=== PATIENT | female | born 1960 | race African-American/Black ===

== ENCOUNTER 2017-09-21 14:17 | Inpatient (IN) | payer MEDICAID ==
[~2017-09-21] VITALS: Ht 172.7 cm; Wt 74.8 kg
[~2017-09-21 14:17] MED LIST: ALBUTEROL SULF8.5 GM INH; ASPIR 8181 MG ORAL; ATORVASTATIN CA10 MG ORAL; BACTRIM DS TAB1 EAC1 ORAL; BENADRYL25 MG ORAL; CHLOROTHIAZIDE250 MG PO; COUMADIN7.5 MG ORAL; FLONASE1 SPRAYS NASAL; FUROSEMIDE20 M1 ORAL; IBUPROFEN600 MG ORAL; LOVENOX120 MG/0.8 SUBQ; NKM; NORCO 5-325 TA1 EACH ORAL; OMEPRAZOLE20 M2 ORAL; PENICILLIN V P500 MG PO; PREDNISONE20 MG ORAL; PROAIR HFA8.5 GM INH; PROMETHAZINE V237 ML ORAL; TAMIFLU75 MG ORAL; TESSALON PERLE100 M2 ORAL; VIBRAMYCIN100 MG ORAL; ZITHROMAX250 MG ORAL; ZOFRAN ODT4 MG ORAL; ZOLOFT25 MG ORAL
[2017-09-21 14:30] VITALS: BP 137/72
[2017-09-21] MEDS ORDERED: ELIQUIS5 MG PO (14:35)
[2017-09-21] MEDS ORDERED: ASPIRIN81 MG ORAL (14:35)
[2017-09-21] MEDS ORDERED: ADALAT20 MG ORAL (14:35)
[2017-09-21] MEDS ORDERED: HYDROCHLOROTHIA25 MG ORAL (14:35)
[2017-09-21] MEDS ORDERED: NITROGLYCERIN0.4 MG SL (14:35)
[2017-09-21] MEDS ORDERED: Vancomycin 1.5gm/D5W 250ml 250 ML IVPB ONE (14:45)
[2017-09-21] MEDS ORDERED: oxyCODONE HCL/Acetaminophen 5/325mg ORAL ONE (14:45)
--- NOTE | 2017-09-21 14:56 | Emergency Room Report ---
History of Present Illness General Chief Complaint: Pain Source: Patient Present Illness HPI 57 -year-old female presents to the emergency department complaining of swelling , erythema and 10 out of 10 in severity pain to the right lower extremity times over 2 weeks. Patient reports that she has had history of cellulitis and ulcers in bilateral extremities as well as DVT. Reports she just started taking Eliquis again. She recently finished 2 courses of antibiotics Keflex and Cleocin without improvement of her symptoms. Patient reports progression of her symptoms. She denies trauma or fall. Denies open wounds. Denies fevers, chills, chest pain, or SOB. Denies Palpitations, LOC, AMS, dizziness, Changes in Vision, Sensation, paresthesias, or a sudden severe headache. Allergies: Coded Allergies: DOXYCYCLINE (Verified Allergy, Unknown, 07/21/15) Patient History Past Medical History: see triage record, DM Past Surgical History: none Pertinent Family History: none Now: No Reviewed Nursing Documentation: PMH: Agreed, PSxH: Agreed Nursing Documentation-PMH Past Medical History: No History, Except For Hx Cardiac Problems: Yes - high cholesterol Hx Hypertension: Yes Hx Diabetes: No Hx Cancer: No Hx Gastrointestinal Problems: No Hx Seizures: No Review of Systems All Other Systems: negative except mentioned in HPI Physical Exam Vital Signs Date Time Temp Pulse Resp B/P (MAP) Pulse Ox O2 Delivery O2 Flow Rate FiO2 09/21/17 14:20 97.8 105 23 137/72 97 Room Air 97.9 Sp02 EP Interpretation: reviewed, normal General Appearance: no apparent distress, alert, GCS 15, non-toxic Head: normocephalic, atraumatic ENT: hearing grossly normal, normal voice Neck: full range of motion Respiratory: chest non-tender, lungs clear, normal breath sounds, no wheezing, speaking full sentences Cardiovascular #1: regular rate, rhythm, normal capillary refill Musculoskeletal: back normal, gait/station normal, normal range of motion, tender - TTP to the Right LE, swelling and erythema noted. hyperpigmentation of the bilateral LE's. Neurologic: alert, oriented x3, responsive, motor strength/tone normal, sensory intact, speech normal, grossly normal Psychiatric: judgement/insight normal Skin: warm/dry, well hydrated, other - bilateral venous stasis, no ulcers, erythema. Right LE has increased temperature to palpation, swelling, and significant Tenderness to superficial palpation. Lymphatic: no adenopathy Medical Decision Making PA Attestation Dr. dang is my supervising Physician whom patient management has been discussed with. Diagnostic Impression: Primary Impression: Cellulitis Additional Impression: CKD (chronic kidney disease) Qualified Codes: N18.9 - Chronic kidney disease, unspecified ER Course 57 -year-old female presents to the emergency department complaining of swelling , erythema and 10 out of 10 in severity pain to the right lower extremity times over 2 weeks. Patient reports that she has had history of cellulitis and ulcers in bilateral extremities as well as DVT, hx of DM. Reports she just started taking Eliquis again. She recently finished 2 courses of antibiotics Keflex and Cleocin without improvement of her symptoms. Patient reports progression of her symptoms. She denies trauma or fall. Denies open wounds. Denies fevers, chills, chest pain, or SOB. Denies Palpitations, LOC, AMS, dizziness, Changes in Vision, Sensation, paresthesias, or a sudden severe headache. Ddx considered but are not limited to cellulitis, DVT, Venous stasis, fracture , d/L, gout Vital signs: are WNL, pt. is afebrile H&PE are most consistent with Right LE cellulitis will r/o DVT. ORDERS: -CBC: unremarkable -CMP: Elevated Cr (2.3) and BUN (34), elevated glucose. -Blood Cultures: Pending Venous Duplex US: Negative. ED INTERVENTIONS: - Vancomycin IV - 1 Liter NS DISPOSITION: at this time pt. will be admitted to Dr. Montoya for Cellulitis unresponsive to oral medications. Dr. Montoya agreed to admit the pt. and to continue pt. care management. Labs Test 09/21/17 15:07 09/21/17 18:21 09/22/17 07:40 09/22/17 19:50 Lactic Acid Level 1.10 mmol/L (0.66-2.22) Urine Color Pale yellow Urine Appearance Clear Urine pH 5 (4.5-8.0) Urine Specific [place] 1.015 (1.005-1.035) Urine Protein 3+ (NEGATIVE) Urine Glucose (UA) Negative (NEGATIVE) Urine Ketones Negative (NEGATIVE) Urine Occult Blood 2+ (NEGATIVE) Urine Nitrite Negative (NEGATIVE) Urine Bilirubin Negative (NEGATIVE) Urine Urobilinogen Normal MG/DL (0.0-1.0) Urine Leukocyte Esterase Negative (NEGATIVE) Urine RBC 2-4 /HPF (0 - 2) Urine WBC 0-2 /HPF (0 - 2) Urine Squamous Epithelial Cells Few /LPF (NONE/OCC) Urine Bacteria Few /HPF (NONE) C-Reactive Protein, Quantitative 0.8 mg/dL (0.00-0.90) Urine Random Sodium 82 MEQ/L (20-110) Test 09/23/17 05:30 09/23/17 06:15 Urine Eosinophils None seen White Blood Count 5.3 K/UL (4.8-10.8) Red Blood Count 4.65 M/UL (4.20-5.40) Hemoglobin 12.3 G/DL (12.0-16.0) Hematocrit 36.8 % (37.0-47.0) Mean Corpuscular Volume 79 FL (80-99) Mean Corpuscular Hemoglobin 26.4 PG (27.0-31.0) Mean Corpuscular Hemoglobin Concent 33.3 G/DL (32.0-36.0) Red Cell Distribution Width 12.8 % (11.6-14.8) Platelet Count 251 K/UL (150-450) Mean Platelet Volume 7.5 FL (6.5-10.1) Neutrophils (%) (Auto) 53.3 % (45.0-75.0) Lymphocytes (%) (Auto) 34.6 % (20.0-45.0) Monocytes (%) (Auto) 8.2 % (1.0-10.0) Eosinophils (%) (Auto) 2.5 % (0.0-3.0) Basophils (%) (Auto) 1.5 % (0.0-2.0) Sodium Level 139 MMOL/L (136-145) Potassium Level 4.2 MMOL/L (3.5-5.1) Chloride Level 106 MMOL/L (98-107) Carbon Dioxide Level 28 MMOL/L (21-32) Anion Gap 5 mmol/L (5-15) Blood Urea Nitrogen 24 mg/dL (7-18) Creatinine 1.7 MG/DL (0.55-1.30) Estimat Glomerular Filtration Rate 37.6 mL/min (>60) Glucose Level 96 MG/DL (74-106) Hemoglobin A1c 7.0 % (4.3-6.0) Calcium Level 8.6 MG/DL (8.5-10.1) Phosphorus Level 3.7 MG/DL (2.5-4.9) Magnesium Level 1.6 MG/DL (1.8-2.4) Total Bilirubin 0.2 MG/DL (0.2-1.0) Aspartate Amino Transf (AST/SGOT) 34 U/L (15-37) Alanine Aminotransferase (ALT/SGPT) 32 U/L (12-78) Alkaline Phosphatase 60 U/L (46-116) Pro-B-Type Natriuretic Peptide 405 pg/mL (0-125) Total Protein 7.5 G/DL (6.4-8.2) Albumin 2.6 G/DL (3.4-5.0) Globulin 4.9 g/dL Albumin/Globulin Ratio 0.5 (1.0-2.7) Triglycerides Level 166 MG/DL (30-150) Cholesterol Level 143 MG/DL (< 200) LDL Cholesterol 78 mg/dL (<100) HDL Cholesterol 35 MG/DL (40-60) Cholesterol/HDL Ratio 4.1 (3.3-4.4) Thyroid Stimulating Hormone (TSH) 1.295 uiU/mL (0.358-3.740) CT/MRI/US Diagnostic Results CT/MRI/US Diagnostic Results : Imaging Test Ordered: Venous Duplex US of the right LE Impression Negative for DVT- Per official radiology report- Please see report for specific details. Last Vital Signs Date Time Temp Pulse Resp B/P (MAP) Pulse Ox O2 Delivery O2 Flow Rate FiO2 09/21/17 14:20 97.8 105 23 137/72 97 Room Air 97.9 Disposition: ADMITTED INPATIENT Condition: Serious Referrals: [facility],REFERRING (PCP) Padma Palencia Sep 21, 2017 14:56
[2017-09-21 15:28] LABS: BASOPHILS % (AUTO) 1.6 % (0.0-2.0); EOSINOPHILS % (AUTO) 2.1 % (0.0-3.0); LYMPHOCYTES % (AUTO) 23.3 % (20.0-45.0); MEAN CORPUSCULAR VOLUME 79 FL (80-99); MONOCYTES % (AUTO) 6.4 % (1.0-10.0); NEUTROPHILS % (AUTO) 66.6 % (45.0-75.0); PLATELET COUNT 301 K/UL (150-450); RED BLOOD COUNT 5.45 M/UL (4.20-5.40); RED CELL DISTRIBUTION WIDTH 12.6 % (11.6-14.8)
[2017-09-21 15:49] LABS: ANION GAP 7 mmol/L (5-15); BLOOD UREA NITROGEN 36 mg/dL (7-18); CALCIUM 9.3 MG/DL (8.5-10.1); CARBON DIOXIDE 28 MMOL/L (21-32); CHLORIDE 104 MMOL/L (98-107); CREATININE 2.6 MG/DL (0.55-1.30); POTASSIUM 4.1 MMOL/L (3.5-5.1); SODIUM 139 MMOL/L (136-145)
[2017-09-21 15:53] LABS: ALANINE AMINOTRANSFERASE 44 U/L (12-78); ALBUMIN 3.3 G/DL (3.4-5.0); ALBUMIN/GLOBULIN RATIO 0.6 (1.0-2.7); ALKALINE PHOSPHATASE 70 U/L (46-116); ASPARTATE AMINO TRANSFERASE 50 U/L (15-37); BILIRUBIN,TOTAL 0.3 MG/DL (0.2-1.0)
[2017-09-21 17:07] VITALS: BP 139/72
[2017-09-21 19:12] LABS: APPEARANCE,URINE CLEAR; BILIRUBIN, URINE NEGATIVE (NEGATIVE); COLOR,URINE PALE YELLOW; GLUCOSE, URINE (UA) NEGATIVE (NEGATIVE); KETONES,URINE NEGATIVE (NEGATIVE); LEUKOCYTE ESTERASE ,URINE NEGATIVE (NEGATIVE); NITRITE,URINE NEGATIVE (NEGATIVE); PH,URINE 5 (4.5-8.0); PROTEIN,URINE 3+ (NEGATIVE); UROBILINOGEN,URINE NORMAL MG/DL (0.0-1.0)
[2017-09-21 20:24] VITALS: BP 148/88
[2017-09-21 21:30] VITALS: BP 139/80
[2017-09-21] MEDS ORDERED: HYDROcodone/Acetamin 10/325 tab ORAL PRN (23:00)
[2017-09-21] MEDS ORDERED: Vancomycin 500 MG in NS 110 ML IV SCH (23:45)
[2017-09-22] VITALS: BP 159/70
[2017-09-22 04:00] VITALS: BP 120/66
[2017-09-22 08:00] VITALS: BP 107/60
[2017-09-22 08:59] LABS: BASOPHILS % (AUTO) 1.5 % (0.0-2.0); EOSINOPHILS % (AUTO) 3.6 % (0.0-3.0); HEMATOCRIT 35.2 % (37.0-47.0); HEMOGLOBIN 11.6 G/DL (12.0-16.0); LYMPHOCYTES % (AUTO) 29.5 % (20.0-45.0); MEAN CORPUSCULAR VOLUME 79 FL (80-99); MONOCYTES % (AUTO) 9.3 % (1.0-10.0); NEUTROPHILS % (AUTO) 56.1 % (45.0-75.0); PLATELET COUNT 253 K/UL (150-450); RED BLOOD COUNT 4.46 M/UL (4.20-5.40)
[2017-09-22 09:26] LABS: ANION GAP 7 mmol/L (5-15); BLOOD UREA NITROGEN 29 mg/dL (7-18); CALCIUM 8.8 MG/DL (8.5-10.1); CARBON DIOXIDE 27 MMOL/L (21-32); CHLORIDE 106 MMOL/L (98-107); POTASSIUM 3.8 MMOL/L (3.5-5.1); SODIUM 140 MMOL/L (136-145)
[2017-09-22 09:53] LABS: PHOSPHORUS 4.2 MG/DL (2.5-4.9)
[2017-09-22] MEDS: Eliquis 2.5mg tablet ORAL SCH ×2 (10:10→17:31)
[2017-09-22 12:00] VITALS: BP 126/76
[2017-09-22] MEDS ORDERED: Vancomycin 500 MG in NS 110 ML IV SCH (15:00)
--- NOTE | 2017-09-22 15:12 | History and Physical ---
History of Present Illness General Date patient seen: Sep 22, 2017 Time patient seen: 15:12 Reason for Hospitalization: Severe L>R leg cellulitis Present Illness HPI 57y/o female with pmh of HTN, HLD, CKD, DVT (on eliquis) who presents with worsening L>R leg swelling/redness/pain. Pt states she has had worsening symptoms for several weeks. She was recently admitted at another hospital and given IV antibiotics and discharged with oral antibiotics (keflex and Celocin) which she completed without improvement. She notes increasing swelling/pain/ redness. Denies open wounds or drainage. She has a history of DVT and was restarted on Eliquis recently after being off of it. Denies trauma or falls. Denies f/c, n/v, d/c, chest pain, SOB, abd pain, dysuria. In ED, pt was given IVFs and vanco. Allergies: Coded Allergies: DOXYCYCLINE (Verified Allergy, Unknown, 07/21/15) Medication History Scheduled Aspirin* (Aspirin*), 81 MG ORAL DAILY, (Reported) Atorvastatin Calcium* (Lipitor*), 10 MG ORAL BEDTIME, (Reported) Doxycycline Hyclate* (Vibramycin*), 100 MG ORAL EVERY 12 HOURS Furosemide* (Lasix*), 20 MG ORAL DAILY, (Reported) Hydrochlorothiazide* (Hydrochlorothiazide*), 25 MG ORAL DAILY, (Reported) Nifedipine (Nifedipine*), 30 MG ORAL DAILY, (Reported) Omeprazole (Omeprazole), 20 MG ORAL DAILY Warfarin Sod (Coumadin*), 7.5 MG ORAL DAILY Scheduled PRN Hydrocodone Bit/Acetaminophen 5-325* ([place] 5-325*), 1 TAB ORAL Q4H PRN for For Pain Ondansetron Odt* (Zofran Odt*), 4 MG ORAL Q8H PRN for Nausea & Vomiting Miscellaneous Medications Apixaban (Eliquis), 5 MG PO, (Reported) Chlorothiazide (Chlorothiazide), Unknown Dose PO, (Reported) Nitroglycerin (Nitroglycerin), 0.4 MG SL, (Reported) Patient History History Provided By: Patient, Medical Record Healthcare decision maker N Resuscitation status Full Code Advanced Directive on File Past Medical/Surgical History Past Medical/Surgical History: (1) HTN (hypertension) (2) HLD (hyperlipidemia) (3) CKD (chronic kidney disease) Social History Social History: (1) Lives with family Review of Systems Constitutional: Reports: malaise, weakness Eye: Reports: no symptoms ENT: Reports: no symptoms Respiratory: Reports: no symptoms Cardiovascular: Reports: no symptoms Gastrointestinal: Reports: no symptoms Genitourinary: Reports: no symptoms Musculoskeletal: Reports: no symptoms Skin: Reports: no symptoms Psychiatric: Reports: no symptoms Neurological: Reports: no symptoms Endocrine: Reports: no symptoms Hematologic/Lymphatic: Reports: no symptoms All Other Systems: negative except mentioned in HPI Physical Exam Physical Exam Narrative General: alert, cooperative, no distress, appears stated age Head: normocephalic, without obvious abnormality, atraumatic Eyes: conjunctivae/corneas clear. PERRL, EOM's intact Throat: lips, mucosa, and tongue normal. MMM Neck: supple, symmetrical, trachea midline, and no JVD Lungs: clear to auscultation bilaterally Heart: regular rate and rhythm, S1, S2 normal, no murmur, click, rub or gallop Abdomen: soft, non-tender, non-distended, bowel sounds normal Extremities: extremities normal, atraumatic, no cyanosis, +chronic venous stasis changes, +L>R leg edema/TTP/warmth/erythema to below the knees Pulses: 2+ and symmetric Skin: skin color, texture, turgor normal; no rashes or lesions Neurologic: grossly normal, no focal deficits Last 24 Hour Vital Signs Date Time Temp Pulse Resp B/P (MAP) Pulse Ox O2 Delivery O2 Flow Rate FiO2 09/22/17 12:00 96.8 71 19 126/76 97 09/22/17 08:00 96.4 74 18 107/60 99 09/22/17 06:46 98.1 09/22/17 04:00 98.1 84 18 120/66 97 09/22/17 00:00 97.7 85 19 159/70 91 09/21/17 21:30 97.5 86 20 139/80 99 09/21/17 21:25 98.5 65 18 148/88 98 Room Air 98.5 09/21/17 20:24 98.5 65 18 148/88 98 Room Air 98.5 09/21/17 17:07 97.8 88 18 139/72 98 Room Air 97.8 09/21/17 15:57 97.8 Intake and Output 09/21/17 09/22/17 19:00 07:00 Intake Total 100 ml 240 ml Balance 100 ml 240 ml Intake Oral 100 ml 240 ml # Voids 1 # Bowel Movements 1 Laboratory Tests Test 09/21/17 18:21 09/22/17 07:48 Urine Color Pale yellow Urine Appearance Clear Urine pH 5 (4.5-8.0) Urine Specific [place] 1.015 (1.005-1.035) Urine Protein 3+ (NEGATIVE) H Urine Glucose (UA) Negative (NEGATIVE) Urine Ketones Negative (NEGATIVE) Urine Occult Blood 2+ (NEGATIVE) H Urine Nitrite Negative (NEGATIVE) Urine Bilirubin Negative (NEGATIVE) Urine Urobilinogen Normal MG/DL (0.0-1.0) Urine Leukocyte Esterase Negative (NEGATIVE) Urine RBC 2-4 /HPF (0 - 2) H Urine WBC 0-2 /HPF (0 - 2) Urine Squamous Epithelial Cells Few /LPF (NONE/OCC) Urine Bacteria Few /HPF (NONE) White Blood Count 6.0 K/UL (4.8-10.8) Red Blood Count 4.46 M/UL (4.20-5.40) Hemoglobin 11.6 G/DL (12.0-16.0) L Hematocrit 35.2 % (37.0-47.0) L Mean Corpuscular Volume 79 FL (80-99) L Mean Corpuscular Hemoglobin 26.0 PG (27.0-31.0) L Mean Corpuscular Hemoglobin Concent 32.9 G/DL (32.0-36.0) Red Cell Distribution Width 13.0 % (11.6-14.8) Platelet Count 253 K/UL (150-450) Mean Platelet Volume 7.7 FL (6.5-10.1) Neutrophils (%) (Auto) 56.1 % (45.0-75.0) Lymphocytes (%) (Auto) 29.5 % (20.0-45.0) Monocytes (%) (Auto) 9.3 % (1.0-10.0) Eosinophils (%) (Auto) 3.6 % (0.0-3.0) H Basophils (%) (Auto) 1.5 % (0.0-2.0) Sodium Level 140 MMOL/L (136-145) Potassium Level 3.8 MMOL/L (3.5-5.1) Chloride Level 106 MMOL/L (98-107) Carbon Dioxide Level 27 MMOL/L (21-32) Anion Gap 7 mmol/L (5-15) Blood Urea Nitrogen 29 mg/dL (7-18) H Creatinine 2.0 MG/DL (0.55-1.30) H Estimat Glomerular Filtration Rate 31.1 mL/min (>60) Glucose Level 126 MG/DL (74-106) H Calcium Level 8.8 MG/DL (8.5-10.1) Phosphorus Level 4.2 MG/DL (2.5-4.9) Magnesium Level 1.6 MG/DL (1.8-2.4) L Height (Feet): 5 Height (Inches): 8.00 Weight (Pounds): 165 Medications Current Medications Medications (Trade) Dose Ordered Sig/Ene Route PRN Reason Start Time Stop Time Status Last Admin Dose Admin Acetaminophen (Tylenol) 650 mg Q6H PRN ORAL Mild Pain/Temp > 100.5 09/21/17 23:00 10/21/17 22:59 Acetaminophen/ Hydrocodone Bitart ([place] 10/325) 2 tab Q4H PRN ORAL Severe Pain (Pain Scale 7-10) 09/21/17 23:00 09/28/17 22:59 09/22/17 06:46 Acetaminophen/ Hydrocodone Bitart ([place] 5/325) 1 tab Q4H PRN ORAL Moderate Pain (Pain Scale 4-6) 09/21/17 23:00 09/28/17 22:59 Apixaban (Eliquis) 5 mg BID ORAL 09/22/17 09:00 10/22/17 08:59 09/22/17 10:10 Sodium Chloride 1,000 ml @ 75 mls/hr [id number] IV 09/22/17 09:30 10/22/17 09:29 09/22/17 09:30 Vancomycin HCl (Vanco rx to dose) 1 ea DAILY PRN MISC Per rx protocol 09/21/17 23:00 10/21/17 22:59 Vancomycin HCl 500 mg/Sodium Chloride 110 ml @ 110 mls/hr Q24H IV 09/22/17 15:00 09/27/17 14:59 Assessment/Plan Problem List: (1) Cellulitis (2) MARYAM on CKD (3) HTN (hypertension) ICD Codes: I10 - Essential (primary) hypertension SNOMED: 02273916 (4) HLD (hyperlipidemia) ICD Codes: E78.5 - Hyperlipidemia, unspecified SNOMED: 90719660 Status: stable Assessment/Plan Pt with L>R severe leg cellulitis which has failed outpatient PO antibiotics Admit inpt ID and renal consulted Cont IV vancomycin (09/21-) F/u cultures IVFs Trend CBC Trend BMP Cont home meds including Eliquis Elevated BLEs Pain control, bowel regimen Supportive DVT ppx: Eliquis FULL CODE D/w pt/family, RN, SW/CM, renal and ID regarding mgmt and dispo Nadia Garcia M.D. Sep 22, 2017 15:12
[2017-09-22] MEDS: Vancomycin 500 MG in NS 110 ML IV SCH (15:39)
--- NOTE | 2017-09-22 15:39 | Consultation ---
Consult Note Consult Note asked to eval for high Cr 57 -year-old female presents to the emergency department complaining of swelling , erythema and 10 out of 10 in severity pain to the right lower extremity times over 2 weeks. Patient reports that she has had history of cellulitis and ulcers in bilateral extremities as well as DVT. Reports she just started taking Eliquis again. She recently finished 2 courses of antibiotics Keflex and Cleocin without improvement of her symptoms. Patient reports progression of her symptoms. She denies trauma or fall. Denies open wounds. Denies fevers, chills, chest pain, or SOB. Denies Palpitations, LOC, AMS, dizziness, Changes in Vision, Sensation, paresthesias, or a sudden severe headache. Allergies: DOXYCYCLINE (Verified Allergy, Unknown, 07/21/15) Past Medical History: Hx Cardiac Problems: Yes - high cholesterol Hx Hypertension: Yes Patient examined- data reviewed . Assessment/Plan Admitted for Cellulitis Acute renal failure Cr 2.6 on admit now 2 ( Was on HCTZ and Lasix) ? CKD underlying Proteinuria / HypoAlbuminemia HTN Plan: Slow hydrate- Urine studies Kidney CARI 2D echo per consultants CARROLL PADILLA Sep 22, 2017 15:39
[2017-09-22 16:00] VITALS: BP 142/84
[2017-09-22] MEDS: Docusate 100mg cap ORAL SCH (17:31)
[2017-09-22 20:00] VITALS: BP 133/75
[2017-09-22] MEDS: Norco 5mg/325mg tab ORAL PRN (20:44)
[2017-09-23] VITALS: BP 127/72
[2017-09-23 04:00] VITALS: BP 132/73
[2017-09-23] MEDS: Norco 5mg/325mg tab ORAL PRN ×2 (05:25→15:45)
[2017-09-23 07:35] LABS: BASOPHILS % (AUTO) 1.5 % (0.0-2.0); EOSINOPHILS % (AUTO) 2.5 % (0.0-3.0); HEMATOCRIT 36.8 % (37.0-47.0); HEMOGLOBIN 12.3 G/DL (12.0-16.0); LYMPHOCYTES % (AUTO) 34.6 % (20.0-45.0); MEAN CORPUSCULAR VOLUME 79 FL (80-99); MONOCYTES % (AUTO) 8.2 % (1.0-10.0); NEUTROPHILS % (AUTO) 53.3 % (45.0-75.0); PLATELET COUNT 251 K/UL (150-450); RED BLOOD COUNT 4.65 M/UL (4.20-5.40); RED CELL DISTRIBUTION WIDTH 12.8 % (11.6-14.8); WHITE BLOOD COUNT 5.3 K/UL (4.8-10.8)
[2017-09-23 07:45] LABS: ALANINE AMINOTRANSFERASE 32 U/L (12-78); ALBUMIN 2.6 G/DL (3.4-5.0); ALBUMIN/GLOBULIN RATIO 0.5 (1.0-2.7); ALKALINE PHOSPHATASE 60 U/L (46-116); ANION GAP 5 mmol/L (5-15); ASPARTATE AMINO TRANSFERASE 34 U/L (15-37); BILIRUBIN,TOTAL 0.2 MG/DL (0.2-1.0); BLOOD UREA NITROGEN 24 mg/dL (7-18); CALCIUM 8.6 MG/DL (8.5-10.1); CARBON DIOXIDE 28 MMOL/L (21-32); CHLORIDE 106 MMOL/L (98-107); CHOLESTEROL 143 MG/DL (< 200); CREATININE 1.7 MG/DL (0.55-1.30); HDL CHOLESTEROL 35 MG/DL (40-60); PHOSPHORUS 3.7 MG/DL (2.5-4.9); POTASSIUM 4.2 MMOL/L (3.5-5.1); SODIUM 139 MMOL/L (136-145); TRIGLYCERIDES 166 MG/DL (30-150)
[2017-09-23 08:00] VITALS: BP 132/80
[2017-09-23] MEDS: Eliquis 2.5mg tablet ORAL SCH ×2 (08:25→17:36)
[2017-09-23] MEDS: Docusate 100mg cap ORAL SCH ×3 (08:25→17:36)
[2017-09-23] MEDS: Aspirin Baby 81mg ORAL SCH (08:25)
--- NOTE | 2017-09-23 11:39 | Consultation ---
Consult Note Consult Note A: Rt lower ext cellulitis Ro bacteremia HTN HLD CKD hx of DVT Leg doppler 09/21 : neg for Rt lower Ext DVT P: cont pt on IV Vanco d# 3 Monitor CBC Monitor BMP Monitor Bl CX HIV KARTHIK BONNER M.D. Sep 23, 2017 11:39
--- NOTE | 2017-09-23 11:51 | Infectious Diseases Prog Note ---
Assessment/Plan Assessment/Plan A: Rt leg cellulitis Subjective Constitutional: Denies: no symptoms, fever, chills, fatigue, anorexia, drenching sweats, other Allergies: Coded Allergies: DOXYCYCLINE (Verified Allergy, Unknown, 07/21/15) Objective Vital Signs Last 24 Hour Vital Signs Date Time Temp Pulse Resp B/P (MAP) Pulse Ox O2 Delivery O2 Flow Rate FiO2 09/23/17 08:00 97.7 86 19 132/80 100 97.7 09/23/17 06:28 97.7 09/23/17 05:25 97.7 09/23/17 04:00 97.9 79 18 132/73 98 Room Air 97.9 09/23/17 00:00 97.7 76 17 127/72 86 Room Air 97.7 09/22/17 20:44 97.5 09/22/17 20:00 97.5 85 19 133/75 100 Room Air 97.5 09/22/17 16:00 97.5 82 19 142/84 100 97.5 09/22/17 12:00 96.8 71 19 126/76 97 Height (Feet): 5 Height (Inches): 8.00 Weight (Pounds): 165 HEENT: anicteric Respiratory/Chest: no respiratory distress Cardiovascular: no gallop/murmur Abdomen: normal bowel sounds Microbiology Date/Time Source Procedure Growth Status 09/21/17 15:07 Blood Blood Culture - Preliminary NO GROWTH AFTER 24 HOURS Resulted 09/21/17 15:00 Blood Blood Culture - Preliminary NO GROWTH AFTER 24 HOURS Resulted Laboratory Tests Test 09/22/17 19:50 09/23/17 05:30 09/23/17 06:15 Urine Random Sodium 82 MEQ/L (20-110) Urine Eosinophils None seen White Blood Count 5.3 K/UL (4.8-10.8) Red Blood Count 4.65 M/UL (4.20-5.40) Hemoglobin 12.3 G/DL (12.0-16.0) Hematocrit 36.8 % (37.0-47.0) L Mean Corpuscular Volume 79 FL (80-99) L Mean Corpuscular Hemoglobin 26.4 PG (27.0-31.0) L Mean Corpuscular Hemoglobin Concent 33.3 G/DL (32.0-36.0) Red Cell Distribution Width 12.8 % (11.6-14.8) Platelet Count 251 K/UL (150-450) Mean Platelet Volume 7.5 FL (6.5-10.1) Neutrophils (%) (Auto) 53.3 % (45.0-75.0) Lymphocytes (%) (Auto) 34.6 % (20.0-45.0) Monocytes (%) (Auto) 8.2 % (1.0-10.0) Eosinophils (%) (Auto) 2.5 % (0.0-3.0) Basophils (%) (Auto) 1.5 % (0.0-2.0) Sodium Level 139 MMOL/L (136-145) Potassium Level 4.2 MMOL/L (3.5-5.1) Chloride Level 106 MMOL/L (98-107) Carbon Dioxide Level 28 MMOL/L (21-32) Anion Gap 5 mmol/L (5-15) Blood Urea Nitrogen 24 mg/dL (7-18) H Creatinine 1.7 MG/DL (0.55-1.30) H Estimat Glomerular Filtration Rate 37.6 mL/min (>60) Glucose Level 96 MG/DL (74-106) Hemoglobin A1c 7.0 % (4.3-6.0) H Calcium Level 8.6 MG/DL (8.5-10.1) Phosphorus Level 3.7 MG/DL (2.5-4.9) Magnesium Level 1.6 MG/DL (1.8-2.4) L Total Bilirubin 0.2 MG/DL (0.2-1.0) Aspartate Amino Transf (AST/SGOT) 34 U/L (15-37) Alanine Aminotransferase (ALT/SGPT) 32 U/L (12-78) Alkaline Phosphatase 60 U/L (46-116) Pro-B-Type Natriuretic Peptide 405 pg/mL (0-125) H Total Protein 7.5 G/DL (6.4-8.2) Albumin 2.6 G/DL (3.4-5.0) L Globulin 4.9 g/dL Albumin/Globulin Ratio 0.5 (1.0-2.7) L Triglycerides Level 166 MG/DL (30-150) H Cholesterol Level 143 MG/DL (< 200) LDL Cholesterol 78 mg/dL (<100) HDL Cholesterol 35 MG/DL (40-60) L Cholesterol/HDL Ratio 4.1 (3.3-4.4) Thyroid Stimulating Hormone (TSH) 1.295 uiU/mL (0.358-3.740) Current Medications Medications (Trade) Dose Ordered Sig/Ene Route PRN Reason Start Time Stop Time Status Last Admin Dose Admin Acetaminophen (Tylenol) 650 mg Q6H PRN ORAL Mild Pain/Temp > 100.5 09/21/17 23:00 10/21/17 22:59 Acetaminophen/ Hydrocodone Bitart ([place] 5/325) 1 tab Q4H PRN ORAL Moderate Pain (Pain Scale 4-6) 09/21/17 23:00 09/28/17 22:59 09/23/17 05:25 Apixaban (Eliquis) 5 mg BID ORAL 09/22/17 09:00 10/22/17 08:59 09/23/17 08:25 Aspirin (ASA) 81 mg DAILY ORAL 09/23/17 09:00 10/23/17 08:59 09/23/17 08:25 Atorvastatin Calcium (Lipitor) 10 mg BEDTIME ORAL 09/22/17 21:00 10/22/17 20:59 09/22/17 20:41 Docusate Sodium (Colace) 100 mg TID ORAL 09/22/17 18:00 10/22/17 17:59 09/23/17 08:25 Lansoprazole (Prevacid) 30 mg DAILY ORAL 09/22/17 16:30 10/22/17 16:29 09/23/17 08:25 Sodium Chloride 1,000 ml @ 50 mls/hr Q20H IV 09/22/17 17:00 10/22/17 16:59 Vancomycin HCl (Vanco rx to dose) 1 ea DAILY PRN MISC Per rx protocol 09/21/17 23:00 10/21/17 22:59 Vancomycin HCl 500 mg/Sodium Chloride 110 ml @ 110 mls/hr Q24H IV 09/22/17 15:00 09/27/17 14:59 09/22/17 15:39 KARTHIK BONNER M.D. Sep 23, 2017 11:51
[2017-09-23 12:00] VITALS: BP 140/93
--- NOTE | 2017-09-23 12:38 | Diagnostic Imaging Report ---
Indication: Renal failure Technique: Multiplanar grayscale and color Doppler imaging kidneys and bladder Comparison: None Findings: The right kidney measures 8.5 cm in length. The left kidney measures 9.8 cm in length. Both kidneys demonstrate normal parenchymal echogenicity. No hydronephrosis or sonographically appreciable renal stones bilaterally. The bladder is decompressed, limiting its evaluation. Imaged portions of the liver and IVC unremarkable in appearance. IMPRESSION: No evidence of hydronephrosis or sonographically appreciable renal stones. Renal parenchymal echogenicity appears within normal limits. Bladder decompressed, limiting its evaluation.
--- NOTE | 2017-09-23 13:33 | Cardiology Report ---
APPROVED REPORT EXAM: Two-dimensional and M-mode echocardiogram with Doppler and color Doppler. INDICATION Congestive Heart Failure M-Mode DIMENSIONS IVSd1.3 (0.7-1.1cm)Left Atrium (MM)2.8 (1.6-4.0cm) LVDd4.9 (3.5-5.6cm)Aortic Root3.7 (2.0-3.7cm) PWd1.1 (0.7-1.1cm)Aortic Cusp Exc.2.2 (1.5-2.0cm) IVSs1.9 cm LVDs2.8 (2.5-4.0cm) PWs1.5 cm Normal left ventricular chamber size, systolic function and wall motion. Left ventricular ejection fraction estimated to be 70-75 %. Mild left ventricular hypertrophy by 2-D. No evidence of pericardial effusion. All other cardiac chamber sizes are within normal limits. Focal aortic valve sclerosis with adequate cusp excursion, Mildly Thickened mitral valve leaflets with normal excursion. Mildly Mitral annulus and aortic root calcification. Normal pulmonic valve structure. Normal tricuspid valve structure. IVC at normal size with physiologic collapse . A color flow and spectral Doppler study was performed and revealed: No aortic regurgitation. Trace mitral regurgitation. Mitral diastolic velocities suggest reduced left ventricular relaxation c/w mild LV diastolic dysfunction (Grade I ). Mild tricuspid regurgitation. Tricuspid systolic velocities suggests peak right ventricular systolic pressure of 44 mmHg, consistent with mild pulmonary hypertension. No Pulmonic regurgitation present
[2017-09-23] MEDS: Vancomycin 500 MG in NS 110 ML IV SCH (15:45)
--- NOTE | 2017-09-23 15:47 | Nephrology Progress Note ---
Assessment/Plan Problem List: (1) MARYAM on CKD (2) HTN (hypertension) Assessment Admitted for Cellulitis Acute renal failure Cr 2.6 on admit now lowering ( Was on HCTZ and Lasix) ? CKD underlying Proteinuria / HypoAlbuminemia HTN Plan Plan: Slow hydrate- Urine studies 2D echo : Left ventricular ejection fraction estimated to be 70-75 %. Mild left ventricular hypertrophy by 2-D. per consultants Kidney CARI No evidence of hydronephrosis or sonographically appreciable renal stones. Renal parenchymal echogenicity appears within normal limits. Bladder decompressed, limiting its evaluation. Subjective ROS Limited/Unobtainable: No Constitutional: Reports: malaise Objective Objective Last 24 Hour Vital Signs Date Time Temp Pulse Resp B/P (MAP) Pulse Ox O2 Delivery O2 Flow Rate FiO2 09/23/17 12:00 97.0 86 20 140/93 98 97.0 09/23/17 08:00 97.7 86 19 132/80 100 97.7 09/23/17 06:28 97.7 09/23/17 05:25 97.7 09/23/17 04:00 97.9 79 18 132/73 98 Room Air 97.9 09/23/17 00:00 97.7 76 17 127/72 86 Room Air 97.7 09/22/17 20:44 97.5 09/22/17 20:00 97.5 85 19 133/75 100 Room Air 97.5 09/22/17 16:00 97.5 82 19 142/84 100 97.5 Intake and Output 09/22/17 09/23/17 19:00 07:00 Intake Total 890 ml 240 ml Balance 890 ml 240 ml Intake Oral 480 ml 240 ml IV Total 410 ml # Voids 1 Laboratory Tests 09/22/17 19:50: Urine Random Sodium 82 09/23/17 05:30: Urine Eosinophils None seen 09/23/17 06:15: White Blood Count 5.3, Red Blood Count 4.65, Hemoglobin 12.3, Hematocrit 36.8L, Mean Corpuscular Volume 79L, Mean Corpuscular Hemoglobin 26.4L, Mean Corpuscular Hemoglobin Concent 33.3, Red Cell Distribution Width 12.8, Platelet Count 251, Mean Platelet Volume 7.5, Neutrophils (%) (Auto) 53.3, Lymphocytes (% ) (Auto) 34.6, Monocytes (%) (Auto) 8.2, Eosinophils (%) (Auto) 2.5, Basophils ( %) (Auto) 1.5, Sodium Level 139, Potassium Level 4.2, Chloride Level 106, Carbon Dioxide Level 28, Anion Gap 5, Blood Urea Nitrogen 24H, Creatinine 1.7H, Estimat Glomerular Filtration Rate 37.6, Glucose Level 96, Hemoglobin A1c 7.0H, Calcium Level 8.6, Phosphorus Level 3.7, Magnesium Level 1.6L, Total Bilirubin 0.2, Aspartate Amino Transf (AST/SGOT) 34, Alanine Aminotransferase (ALT/SGPT) 32, Alkaline Phosphatase 60, Pro-B-Type Natriuretic Peptide 405H, Total Protein 7.5, Albumin 2.6L, Globulin 4.9, Albumin/Globulin Ratio 0.5L, Triglycerides Level 166H, Cholesterol Level 143, LDL Cholesterol 78, HDL Cholesterol 35L, Cholesterol/HDL Ratio 4.1, Thyroid Stimulating Hormone (TSH) 1.295 09/23/17 14:20: Vancomycin Level Trough [Pending] Height (Feet): 5 Height (Inches): 8.00 Weight (Pounds): 165 General Appearance: no apparent distress Cardiovascular: normal rate Respiratory/Chest: decreased breath sounds Abdomen: soft CARROLL PADILLA Sep 23, 2017 15:47
--- NOTE | 2017-09-23 15:56 | Pulmonology Progress Note ---
Assessment/Plan Problems: (1) Cellulitis (2) Depression (3) HTN (hypertension) (4) MARYAM on CKD Assessment/Plan iv abx f/u renal parameters check electrolytes f/u ID recommendations. Subjective Interval Events: c/o pain in RL extremity Allergies: Coded Allergies: DOXYCYCLINE (Verified Allergy, Unknown, 07/21/15) Objective Last 24 Hour Vital Signs Date Time Temp Pulse Resp B/P (MAP) Pulse Ox O2 Delivery O2 Flow Rate FiO2 09/23/17 12:00 97.0 86 20 140/93 98 97.0 09/23/17 08:00 97.7 86 19 132/80 100 97.7 09/23/17 06:28 97.7 09/23/17 05:25 97.7 09/23/17 04:00 97.9 79 18 132/73 98 Room Air 97.9 09/23/17 00:00 97.7 76 17 127/72 86 Room Air 97.7 09/22/17 20:44 97.5 09/22/17 20:00 97.5 85 19 133/75 100 Room Air 97.5 09/22/17 16:00 97.5 82 19 142/84 100 97.5 Intake and Output 09/22/17 09/23/17 19:00 07:00 Intake Total 890 ml 240 ml Balance 890 ml 240 ml Intake Oral 480 ml 240 ml IV Total 410 ml # Voids 1 Objective General Appearance: no apparent distress Head: normocephalic, atraumatic Eyes: bilateral eye PERRL, bilateral eye EOMI ENT: normal pharynx, no angioedema Neck: supple, thyroid normal Respiratory: lungs clear, normal breath sounds Cardiovascular #1: regular rate, rhythm Gastrointestinal: non tender, soft Ext. slightly warmth and redness at right calf Microbiology Date/Time Source Procedure Growth Status 09/21/17 15:07 Blood Blood Culture - Preliminary NO GROWTH AFTER 24 HOURS Resulted 09/21/17 15:00 Blood Blood Culture - Preliminary NO GROWTH AFTER 24 HOURS Resulted Laboratory Tests 09/22/17 19:50: Urine Random Sodium 82 09/23/17 05:30: Urine Eosinophils None seen 09/23/17 06:15: White Blood Count 5.3, Red Blood Count 4.65, Hemoglobin 12.3, Hematocrit 36.8L, Mean Corpuscular Volume 79L, Mean Corpuscular Hemoglobin 26.4L, Mean Corpuscular Hemoglobin Concent 33.3, Red Cell Distribution Width 12.8, Platelet Count 251, Mean Platelet Volume 7.5, Neutrophils (%) (Auto) 53.3, Lymphocytes (% ) (Auto) 34.6, Monocytes (%) (Auto) 8.2, Eosinophils (%) (Auto) 2.5, Basophils ( %) (Auto) 1.5, Sodium Level 139, Potassium Level 4.2, Chloride Level 106, Carbon Dioxide Level 28, Anion Gap 5, Blood Urea Nitrogen 24H, Creatinine 1.7H, Estimat Glomerular Filtration Rate 37.6, Glucose Level 96, Hemoglobin A1c 7.0H, Calcium Level 8.6, Phosphorus Level 3.7, Magnesium Level 1.6L, Total Bilirubin 0.2, Aspartate Amino Transf (AST/SGOT) 34, Alanine Aminotransferase (ALT/SGPT) 32, Alkaline Phosphatase 60, Pro-B-Type Natriuretic Peptide 405H, Total Protein 7.5, Albumin 2.6L, Globulin 4.9, Albumin/Globulin Ratio 0.5L, Triglycerides Level 166H, Cholesterol Level 143, LDL Cholesterol 78, HDL Cholesterol 35L, Cholesterol/HDL Ratio 4.1, Thyroid Stimulating Hormone (TSH) 1.295 09/23/17 14:20: Vancomycin Level Trough 6.7 Current Medications Medications (Trade) Dose Ordered Sig/Ene Route PRN Reason Start Time Stop Time Status Last Admin Dose Admin Acetaminophen (Tylenol) 650 mg Q6H PRN ORAL Mild Pain/Temp > 100.5 09/21/17 23:00 10/21/17 22:59 Acetaminophen/ Hydrocodone Bitart ([place] 5/325) 1 tab Q4H PRN ORAL Moderate Pain (Pain Scale 4-6) 09/21/17 23:00 09/28/17 22:59 09/23/17 15:45 Apixaban (Eliquis) 5 mg BID ORAL 09/22/17 09:00 10/22/17 08:59 09/23/17 08:25 Aspirin (ASA) 81 mg DAILY ORAL 09/23/17 09:00 10/23/17 08:59 09/23/17 08:25 Atorvastatin Calcium (Lipitor) 10 mg BEDTIME ORAL 09/22/17 21:00 10/22/17 20:59 09/22/17 20:41 Docusate Sodium (Colace) 100 mg TID ORAL 09/22/17 18:00 10/22/17 17:59 09/23/17 08:25 Lansoprazole (Prevacid) 30 mg DAILY ORAL 09/22/17 16:30 10/22/17 16:29 09/23/17 08:25 Sodium Chloride 1,000 ml @ 50 mls/hr Q20H IV 09/22/17 17:00 10/22/17 16:59 Vancomycin HCl (Vanco rx to dose) 1 ea DAILY PRN MISC Per rx protocol 09/21/17 23:00 10/21/17 22:59 Vancomycin HCl 500 mg/Sodium Chloride 110 ml @ 110 mls/hr Q24H IV 09/22/17 15:00 09/27/17 14:59 09/23/17 15:45 NEY LOVE Sep 23, 2017 15:56
[2017-09-23 16:00] VITALS: BP 131/65
[2017-09-23 20:00] VITALS: BP 124/68
--- NOTE | 2017-09-23 21:43 | Diagnostic Imaging Report ---
APPROVED REPORT CPT Code: 16952 Present Symptoms Comments: R/O DVT Left leg Past History DVT :Left Medications Heparin LEFT LEG: Venous imaging reveals recanalized chronic thrombus in the common and superficial femoral veins. Large collateral vein noted anterior to the superficial femoral artery. The remainder of the deep venous system is within normal limits. There is no evidence of thrombus in the popliteal or calf veins. The greater saphenous vein is also within normal limits. Doppler indicates normal spontaneous flow within these segments. There is no evidence of acute deep vein thrombosis.
--- NOTE | 2017-09-23 21:51 | Diagnostic Imaging Report ---
APPROVED REPORT CPT Code: 21367 Present Symptoms Comments: Pain Swelling and Erythema RIGHT LEG: Venous imaging reveals a patent deep venous system. There is no evidence of thrombus within the femoral, popliteal or tibial segments. The greater saphenous vein is also within normal limits. Doppler indicates normal spontaneous flow within these segments.
--- NOTE | 2017-09-23 22:30 | Consultation ---
DATE OF CONSULTATION: 09/23/2017 INFECTIOUS DISEASES CONSULTATION CONSULTING PHYSICIAN: Audie Tovar M.D. REFERRING PHYSICIAN: Nadia Garcia M.D. REASON FOR CONSULTATION: Evaluation of the patient for lower extremity cellulitis and antibiotic management. HISTORY OF PRESENT ILLNESS: The patient is a 57-year-old female with multiple medical problems who was admitted to this medical center for left lower extremity pain, tenderness, and discoloration. Apparently, the patient has been seen in other facilities and was given oral antibiotics (Keflex and later clindamycin) without significant improvement. Infectious Diseases consultation has been requested for further evaluation of the patient and antibiotic management. PAST MEDICAL HISTORY: 1. Hypertension. 2. Hyperlipidemia. 3. CKD. 4. History of DVT. MEDICATIONS: Vancomycin. ALLERGIES: Doxycycline. FAMILY HISTORY: Not contributing. REVIEW OF SYSTEMS: HEENT: No recent change in vision or hearing. PULMONARY: No cough or shortness of breath. CARDIOVASCULAR: No chest pain or palpitation. GASTROINTESTINAL/ABDOMEN: No nausea or vomiting. GENITOURINARY: No dysuria. MUSCULOSKELETAL: Right lower extremity edema and tenderness. PHYSICAL EXAMINATION: VITAL SIGNS: Temperature 97.7 degrees, blood pressure 132/80, pulse rate 80, and respiratory rate 18. HEENT: No pale conjunctivae. No icterus. NECK: No lymphadenopathy. CHEST: Clear. HEART: S1 and S2. ABDOMEN: Soft. EXTREMITIES: Right lower extremity edema and tenderness. NEUROLOGIC: Awake and alert. LABORATORY AND DIAGNOSTIC DATA: White blood cells 6, hemoglobin 11, and platelets 253. UA is unremarkable. BUN 29 and creatinine 2. Leg Doppler, no evidence of DVT on the right. ASSESSMENT: 1. This is a 57-year-old female with right lower extremity cellulitis. 2. Acute renal insufficiency/dehydration, improving. 3. Rule out bacteremia. PLAN: 1. We will continue the patient on IV vancomycin. 2. Monitor CBC. 3. Monitor BMP. 4. Monitor blood culture. 5. We will check HIV test. 6. Based on the patient's clinical course and labs, we will do further recommendations. Thank you, Dr. Zuniga and Dr. Ramos, for allowing me to participate in the care of this patient. I will follow the patient with you during this hospitalization. Audie Tovar M.D. DR: NELSON JOB#: [id number] CC:
[2017-09-24 00:02] VITALS: BP 120/62
[2017-09-24] MEDS: Norco 5mg/325mg tab ORAL PRN ×4 (03:17→20:18)
[2017-09-24 04:40] VITALS: BP 124/71
[2017-09-24 08:00] VITALS: BP 122/71
[2017-09-24] MEDS: Docusate 100mg cap ORAL SCH ×3 (08:08→17:11)
[2017-09-24] MEDS: Aspirin Baby 81mg ORAL SCH (08:08)
[2017-09-24] MEDS: Eliquis 2.5mg tablet ORAL SCH ×2 (08:08→17:12)
[2017-09-24 11:54] VITALS: BP 128/76
--- NOTE | 2017-09-24 12:05 | Infectious Diseases Prog Note ---
Assessment/Plan Assessment/Plan ASSESSMENT: This is a 57-year-old female with Right lower extremity edema and tenderness Bl Leg: Doppler, no evidence of DVT on the right HIV test : Neg Acute renal insufficiency/dehydration, improving Hypertension Hyperlipidemia CKD History of DVT PLAN: continue the patient on IV vancomycin d# 3 Monitor CBC. Monitor BMP. Monitor blood culture. Subjective Allergies: Coded Allergies: DOXYCYCLINE (Verified Allergy, Unknown, 07/21/15) Subjective afebrile Objective Vital Signs Last 24 Hour Vital Signs Date Time Temp Pulse Resp B/P (MAP) Pulse Ox O2 Delivery O2 Flow Rate FiO2 09/24/17 11:54 98.1 110 19 128/76 99 98.1 09/24/17 09:09 97.3 09/24/17 08:10 97.3 09/24/17 08:00 97.3 79 19 122/71 99 97.3 09/24/17 04:40 97.3 70 18 124/71 98 97.3 09/24/17 04:40 Room Air 09/24/17 00:05 Room Air 09/24/17 00:02 97.8 79 18 120/62 97 97.8 09/23/17 20:00 97.5 85 17 124/68 97 97.5 09/23/17 20:00 Room Air 09/23/17 16:00 98.4 75 21 131/65 98 98.4 Height (Feet): 5 Height (Inches): 8.00 Weight (Pounds): 165 HEENT: anicteric Respiratory/Chest: normal breath sounds Cardiovascular: normal peripheral pulses Abdomen: soft, non tender Microbiology Date/Time Source Procedure Growth Status 09/21/17 15:07 Blood Blood Culture - Preliminary NO GROWTH AFTER 48 HOURS Resulted 09/21/17 15:00 Blood Blood Culture - Preliminary NO GROWTH AFTER 48 HOURS Resulted Laboratory Tests Test 09/23/17 14:20 09/24/17 04:15 09/24/17 05:30 Vancomycin Level Trough 6.7 ug/mL (5.0-12.0) Urine Eosinophils None seen HIV (1&2) Antibody Rapid Negative (NEGATIVE) Current Medications Medications (Trade) Dose Ordered Sig/Ene Route PRN Reason Start Time Stop Time Status Last Admin Dose Admin Acetaminophen (Tylenol) 650 mg Q6H PRN ORAL Mild Pain/Temp > 100.5 09/21/17 23:00 10/21/17 22:59 Acetaminophen/ Hydrocodone Bitart ([place] 5/325) 1 tab Q4H PRN ORAL Moderate Pain (Pain Scale 4-6) 09/21/17 23:00 09/28/17 22:59 09/24/17 08:10 Apixaban (Eliquis) 5 mg BID ORAL 09/22/17 09:00 10/22/17 08:59 09/24/17 08:08 Aspirin (ASA) 81 mg DAILY ORAL 09/23/17 09:00 10/23/17 08:59 09/24/17 08:08 Atorvastatin Calcium (Lipitor) 10 mg BEDTIME ORAL 09/22/17 21:00 10/22/17 20:59 09/23/17 20:21 Docusate Sodium (Colace) 100 mg TID ORAL 09/22/17 18:00 10/22/17 17:59 09/24/17 08:08 Lansoprazole (Prevacid) 30 mg DAILY ORAL 09/22/17 16:30 10/22/17 16:29 09/24/17 08:08 Sodium Chloride 1,000 ml @ 50 mls/hr Q20H IV 09/22/17 17:00 10/22/17 16:59 09/24/17 11:04 Vancomycin HCl (Vanco rx to dose) 1 ea DAILY PRN MISC Per rx protocol 09/21/17 23:00 10/21/17 22:59 Vancomycin HCl 500 mg/Sodium Chloride 110 ml @ 110 mls/hr Q24H IV 09/22/17 15:00 09/27/17 14:59 09/23/17 15:45 KARTHIK BNONER M.D. Sep 24, 2017 12:05
--- NOTE | 2017-09-24 12:21 | Nephrology Progress Note ---
Assessment/Plan Problem List: (1) MARYAM on CKD (2) HTN (hypertension) Assessment Admitted for Cellulitis Acute renal failure Cr 2.6 on admit now lowering ( Was on HCTZ and Lasix) ? CKD underlying Proteinuria / HypoAlbuminemia HTN Plan Plan: no labs today Slow hydrate- Urine studies 2D echo : Left ventricular ejection fraction estimated to be 70-75 %. Mild left ventricular hypertrophy by 2-D. per consultants Kidney CARI No evidence of hydronephrosis or sonographically appreciable renal stones. Renal parenchymal echogenicity appears within normal limits. Bladder decompressed, limiting its evaluation. Subjective ROS Limited/Unobtainable: No Constitutional: Reports: malaise Objective Objective Last 24 Hour Vital Signs Date Time Temp Pulse Resp B/P (MAP) Pulse Ox O2 Delivery O2 Flow Rate FiO2 09/24/17 12:19 80 09/24/17 11:54 98.1 110 19 128/76 99 98.1 09/24/17 09:09 97.3 09/24/17 08:10 97.3 09/24/17 08:00 97.3 79 19 122/71 99 97.3 09/24/17 04:40 97.3 70 18 124/71 98 97.3 09/24/17 04:40 Room Air 09/24/17 00:05 Room Air 09/24/17 00:02 97.8 79 18 120/62 97 97.8 09/23/17 20:00 97.5 85 17 124/68 97 97.5 09/23/17 20:00 Room Air 09/23/17 16:00 98.4 75 21 131/65 98 98.4 Intake and Output 09/23/17 09/24/17 19:00 07:00 Intake Total 860 ml 860 ml Balance 860 ml 860 ml Intake Oral 860 ml 360 ml IV Total 500 ml # Voids 4 1 # Bowel Movements 1 Laboratory Tests 09/23/17 14:20: Vancomycin Level Trough 6.7 09/24/17 04:15: Urine Eosinophils None seen 09/24/17 05:30: HIV (1&2) Antibody Rapid Negative Height (Feet): 5 Height (Inches): 8.00 Weight (Pounds): 165 General Appearance: no apparent distress Objective no change CARROLL PADILLA Sep 24, 2017 12:21
[2017-09-24] MEDS: Vancomycin 500 MG in NS 110 ML IV SCH (15:06)
[2017-09-24 15:59] VITALS: BP 135/72
--- NOTE | 2017-09-24 17:11 | Pulmonology Progress Note ---
Assessment/Plan Problems: (1) Cellulitis (2) Depression (3) HTN (hypertension) (4) MARYAM on CKD Assessment/Plan improivng iv abx on Vancomycin f/u renal parameters check electrolytes f/u ID recommendations. Subjective ROS Limited/Unobtainable: No Constitutional: Reports: no symptoms HEENT: Repors: no symptoms Respiratory: Reports: no symptoms Allergies: Coded Allergies: DOXYCYCLINE (Verified Allergy, Unknown, 07/21/15) Objective Last 24 Hour Vital Signs Date Time Temp Pulse Resp B/P (MAP) Pulse Ox O2 Delivery O2 Flow Rate FiO2 09/24/17 15:59 97.2 71 19 135/72 99 97.2 09/24/17 13:44 98.1 09/24/17 12:45 98.1 09/24/17 12:19 80 09/24/17 11:54 98.1 110 19 128/76 99 98.1 09/24/17 08:10 97.3 09/24/17 08:00 97.3 79 19 122/71 99 97.3 09/24/17 04:40 97.3 70 18 124/71 98 97.3 09/24/17 04:40 Room Air 09/24/17 00:05 Room Air 09/24/17 00:02 97.8 79 18 120/62 97 97.8 09/23/17 20:00 97.5 85 17 124/68 97 97.5 09/23/17 20:00 Room Air Intake and Output 09/23/17 09/24/17 19:00 07:00 Intake Total 860 ml 910 ml Balance 860 ml 910 ml Intake Oral 860 ml 360 ml IV Total 550 ml # Voids 4 1 # Bowel Movements 1 Objective General Appearance: no apparent distress Head: normocephalic, atraumatic Eyes: bilateral eye PERRL, bilateral eye EOMI ENT: normal pharynx, no angioedema Neck: supple, thyroid normal Respiratory: lungs clear, normal breath sounds Cardiovascular #1: regular rate, rhythm Gastrointestinal: non tender, soft Ext. slightly warmth and redness at right calf Laboratory Tests 09/24/17 04:15: Urine Eosinophils None seen 09/24/17 05:30: HIV (1&2) Antibody Rapid Negative Current Medications Medications (Trade) Dose Ordered Sig/Ene Route PRN Reason Start Time Stop Time Status Last Admin Dose Admin Acetaminophen (Tylenol) 650 mg Q6H PRN ORAL Mild Pain/Temp > 100.5 09/21/17 23:00 10/21/17 22:59 Acetaminophen/ Hydrocodone Bitart ([place] 5/325) 1 tab Q4H PRN ORAL Moderate Pain (Pain Scale 4-6) 09/21/17 23:00 09/28/17 22:59 09/24/17 12:45 Apixaban (Eliquis) 5 mg BID ORAL 09/22/17 09:00 10/22/17 08:59 09/24/17 08:08 Aspirin (ASA) 81 mg DAILY ORAL 09/23/17 09:00 10/23/17 08:59 09/24/17 08:08 Atorvastatin Calcium (Lipitor) 10 mg BEDTIME ORAL 09/22/17 21:00 10/22/17 20:59 09/23/17 20:21 Docusate Sodium (Colace) 100 mg TID ORAL 09/22/17 18:00 10/22/17 17:59 09/24/17 12:37 Lansoprazole (Prevacid) 30 mg DAILY ORAL 09/22/17 16:30 10/22/17 16:29 09/24/17 08:08 Sodium Chloride 1,000 ml @ 50 mls/hr Q20H IV 09/22/17 17:00 10/22/17 16:59 09/24/17 11:04 Vancomycin HCl (Vanco rx to dose) 1 ea DAILY PRN MISC Per rx protocol 09/21/17 23:00 10/21/17 22:59 Vancomycin HCl 500 mg/Sodium Chloride 110 ml @ 110 mls/hr Q24H IV 09/22/17 15:00 09/27/17 14:59 09/24/17 15:06 NEY LOVE Sep 24, 2017 17:11
[2017-09-24 19:43] VITALS: BP 132/68
[2017-09-25] VITALS (7 sets, daily range): BP systolic 127–164; BP diastolic 64–95
[2017-09-25] MEDS: Norco 5mg/325mg tab ORAL PRN ×3 (05:40→20:24)
[2017-09-25 06:30] LABS: BASOPHILS % (AUTO) 1.2 % (0.0-2.0); EOSINOPHILS % (AUTO) 2.8 % (0.0-3.0); HEMATOCRIT 35.7 % (37.0-47.0); HEMOGLOBIN 11.9 G/DL (12.0-16.0); LYMPHOCYTES % (AUTO) 27.9 % (20.0-45.0); MEAN CORPUSCULAR VOLUME 80 FL (80-99); MONOCYTES % (AUTO) 6.6 % (1.0-10.0); NEUTROPHILS % (AUTO) 61.5 % (45.0-75.0); PLATELET COUNT 304 K/UL (150-450); RED BLOOD COUNT 4.49 M/UL (4.20-5.40); RED CELL DISTRIBUTION WIDTH 13.2 % (11.6-14.8); WHITE BLOOD COUNT 6.5 K/UL (4.8-10.8)
[2017-09-25 06:59] LABS: ALANINE AMINOTRANSFERASE 31 U/L (12-78); ALBUMIN 2.5 G/DL (3.4-5.0); ALBUMIN/GLOBULIN RATIO 0.5 (1.0-2.7); ALKALINE PHOSPHATASE 59 U/L (46-116); ANION GAP 6 mmol/L (5-15); ASPARTATE AMINO TRANSFERASE 26 U/L (15-37); BILIRUBIN,TOTAL 0.1 MG/DL (0.2-1.0); BLOOD UREA NITROGEN 22 mg/dL (7-18); CALCIUM 8.6 MG/DL (8.5-10.1); CARBON DIOXIDE 26 MMOL/L (21-32); CHLORIDE 109 MMOL/L (98-107); CREATININE 1.7 MG/DL (0.55-1.30); PHOSPHORUS 3.3 MG/DL (2.5-4.9); POTASSIUM 4.6 MMOL/L (3.5-5.1); SODIUM 141 MMOL/L (136-145)
[2017-09-25] MEDS: Aspirin Baby 81mg ORAL SCH (08:22)
[2017-09-25] MEDS: Docusate 100mg cap ORAL SCH ×3 (08:23→17:08)
[2017-09-25] MEDS: Eliquis 2.5mg tablet ORAL SCH ×2 (08:23→17:09)
--- NOTE | 2017-09-25 11:05 | Infectious Diseases Prog Note ---
Assessment/Plan Assessment/Plan ASSESSMENT: This is a 57-year-old female with Right lower extremity cellulitis , improving edema and tenderness improving Bl Leg: Doppler, no evidence of DVT on the right HIV test : Neg Acute renal insufficiency/dehydration, improving Hypertension Hyperlipidemia CKD History of DVT PLAN: continue the patient on IV vancomycin d# 4/ 10 Monitor CBC. Monitor BMP. Monitor blood culture Subjective Constitutional: Denies: no symptoms, fever, chills, fatigue, anorexia, drenching sweats, other Allergies: Coded Allergies: DOXYCYCLINE (Verified Allergy, Unknown, 07/21/15) Subjective afebrile Objective Vital Signs Last 24 Hour Vital Signs Date Time Temp Pulse Resp B/P (MAP) Pulse Ox O2 Delivery O2 Flow Rate FiO2 09/25/17 08:22 Room Air 09/25/17 08:00 98.0 74 20 132/75 100 98.0 09/25/17 03:36 98.1 66 20 132/64 99 Room Air 98.1 88 09/25/17 00:51 97.0 84 20 127/75 95 Room Air 97.0 09/24/17 19:43 97.0 85 20 132/68 99 Room Air 97.0 85 09/24/17 15:59 97.2 71 19 135/72 99 97.2 09/24/17 13:44 98.1 09/24/17 12:45 98.1 09/24/17 12:19 80 09/24/17 11:54 98.1 110 19 128/76 99 98.1 Height (Feet): 5 Height (Inches): 8.00 Weight (Pounds): 165 HEENT: anicteric Respiratory/Chest: no respiratory distress Cardiovascular: regularly irregular Abdomen: non distended Laboratory Tests Test 09/25/17 04:14 09/25/17 05:10 Urine Eosinophils None seen White Blood Count 6.5 K/UL (4.8-10.8) Red Blood Count 4.49 M/UL (4.20-5.40) Hemoglobin 11.9 G/DL (12.0-16.0) L Hematocrit 35.7 % (37.0-47.0) L Mean Corpuscular Volume 80 FL (80-99) Mean Corpuscular Hemoglobin 26.6 PG (27.0-31.0) L Mean Corpuscular Hemoglobin Concent 33.4 G/DL (32.0-36.0) Red Cell Distribution Width 13.2 % (11.6-14.8) Platelet Count 304 K/UL (150-450) Mean Platelet Volume 7.5 FL (6.5-10.1) Neutrophils (%) (Auto) 61.5 % (45.0-75.0) Lymphocytes (%) (Auto) 27.9 % (20.0-45.0) Monocytes (%) (Auto) 6.6 % (1.0-10.0) Eosinophils (%) (Auto) 2.8 % (0.0-3.0) Basophils (%) (Auto) 1.2 % (0.0-2.0) Sodium Level 141 MMOL/L (136-145) Potassium Level 4.6 MMOL/L (3.5-5.1) Chloride Level 109 MMOL/L (98-107) H Carbon Dioxide Level 26 MMOL/L (21-32) Anion Gap 6 mmol/L (5-15) Blood Urea Nitrogen 22 mg/dL (7-18) H Creatinine 1.7 MG/DL (0.55-1.30) H Estimat Glomerular Filtration Rate 37.6 mL/min (>60) Glucose Level 93 MG/DL (74-106) Uric Acid 5.8 MG/DL (2.6-7.2) Calcium Level 8.6 MG/DL (8.5-10.1) Phosphorus Level 3.3 MG/DL (2.5-4.9) Magnesium Level 1.9 MG/DL (1.8-2.4) Total Bilirubin 0.1 MG/DL (0.2-1.0) L Aspartate Amino Transf (AST/SGOT) 26 U/L (15-37) Alanine Aminotransferase (ALT/SGPT) 31 U/L (12-78) Alkaline Phosphatase 59 U/L (46-116) Total Protein 7.4 G/DL (6.4-8.2) Albumin 2.5 G/DL (3.4-5.0) L Globulin 4.9 g/dL Albumin/Globulin Ratio 0.5 (1.0-2.7) L Current Medications Medications (Trade) Dose Ordered Sig/Ene Route PRN Reason Start Time Stop Time Status Last Admin Dose Admin Acetaminophen (Tylenol) 650 mg Q6H PRN ORAL Mild Pain/Temp > 100.5 09/21/17 23:00 10/21/17 22:59 Acetaminophen/ Hydrocodone Bitart ([place] 5/325) 1 tab Q4H PRN ORAL Moderate Pain (Pain Scale 4-6) 09/21/17 23:00 09/28/17 22:59 09/25/17 05:40 Apixaban (Eliquis) 5 mg BID ORAL 09/22/17 09:00 10/22/17 08:59 09/25/17 08:23 Aspirin (ASA) 81 mg DAILY ORAL 09/23/17 09:00 10/23/17 08:59 09/25/17 08:22 Atorvastatin Calcium (Lipitor) 10 mg BEDTIME ORAL 09/22/17 21:00 10/22/17 20:59 09/24/17 20:16 Docusate Sodium (Colace) 100 mg TID ORAL 09/22/17 18:00 10/22/17 17:59 09/25/17 08:23 Lansoprazole (Prevacid) 30 mg DAILY ORAL 09/22/17 16:30 10/22/17 16:29 09/25/17 08:23 Sodium Chloride 1,000 ml @ 50 mls/hr Q20H IV 09/22/17 17:00 10/22/17 16:59 09/24/17 11:04 Vancomycin HCl (Vanco rx to dose) 1 ea DAILY PRN MISC Per rx protocol 09/21/17 23:00 10/21/17 22:59 Vancomycin HCl 500 mg/Sodium Chloride 110 ml @ 110 mls/hr Q24H IV 09/22/17 15:00 09/27/17 14:59 09/24/17 15:06 KARTHIK BONNER M.D. Sep 25, 2017 11:05
--- NOTE | 2017-09-25 14:21 | Nephrology Progress Note ---
Assessment/Plan Problem List: (1) MARYAM on CKD (2) HTN (hypertension) Assessment Admitted for Cellulitis Acute renal failure Cr 2.6 on admit now lowering ( Was on HCTZ and Lasix) Cr 1.7 stable ? CKD underlying Proteinuria / HypoAlbuminemia HTN Plan Plan: Slow hydrate- Urine studies 2D echo : Left ventricular ejection fraction estimated to be 70-75 %. Mild left ventricular hypertrophy by 2-D. per consultants Kidney CARI No evidence of hydronephrosis or sonographically appreciable renal stones. Renal parenchymal echogenicity appears within normal limits. Bladder decompressed, limiting its evaluation. Subjective ROS Limited/Unobtainable: No Objective Objective Last 24 Hour Vital Signs Date Time Temp Pulse Resp B/P (MAP) Pulse Ox O2 Delivery O2 Flow Rate FiO2 09/25/17 13:20 84 151/85 09/25/17 13:18 97.3 09/25/17 13:15 Room Air 09/25/17 12:00 97.3 74 20 164/95 100 97.3 09/25/17 08:22 Room Air 09/25/17 08:00 98.0 74 20 132/75 100 98.0 09/25/17 03:36 98.1 66 20 132/64 99 Room Air 98.1 88 09/25/17 00:51 97.0 84 20 127/75 95 Room Air 97.0 09/24/17 19:43 97.0 85 20 132/68 99 Room Air 97.0 85 09/24/17 15:59 97.2 71 19 135/72 99 97.2 Intake and Output 09/24/17 09/25/17 19:00 07:00 Intake Total 1090 ml 800 ml Balance 1090 ml 800 ml Intake Oral 480 ml 200 ml IV Total 610 ml 600 ml # Voids 2 # Bowel Movements 1 Laboratory Tests 09/25/17 04:14: Urine Eosinophils None seen 09/25/17 05:10: White Blood Count 6.5, Red Blood Count 4.49, Hemoglobin 11.9L, Hematocrit 35.7L , Mean Corpuscular Volume 80, Mean Corpuscular Hemoglobin 26.6L, Mean Corpuscular Hemoglobin Concent 33.4, Red Cell Distribution Width 13.2, Platelet Count 304, Mean Platelet Volume 7.5, Neutrophils (%) (Auto) 61.5, Lymphocytes (% ) (Auto) 27.9, Monocytes (%) (Auto) 6.6, Eosinophils (%) (Auto) 2.8, Basophils ( %) (Auto) 1.2, Sodium Level 141, Potassium Level 4.6, Chloride Level 109H, Carbon Dioxide Level 26, Anion Gap 6, Blood Urea Nitrogen 22H, Creatinine 1.7H, Estimat Glomerular Filtration Rate 37.6, Glucose Level 93, Uric Acid 5.8, Calcium Level 8.6, Phosphorus Level 3.3, Magnesium Level 1.9, Total Bilirubin 0.1L, Aspartate Amino Transf (AST/SGOT) 26, Alanine Aminotransferase (ALT/SGPT) 31, Alkaline Phosphatase 59, Total Protein 7.4, Albumin 2.5L, Globulin 4.9, Albumin/Globulin Ratio 0.5L Height (Feet): 5 Height (Inches): 8.00 Weight (Pounds): 165 General Appearance: no apparent distress Objective no change CARROLL PADILLA Sep 25, 2017 14:20
[2017-09-25] MEDS: Vancomycin 500 MG in NS 110 ML IV SCH (15:03)
--- NOTE | 2017-09-25 22:35 | Pulmonology Progress Note ---
Assessment/Plan Problems: (1) Cellulitis (2) Depression (3) HTN (hypertension) (4) MARYAM on CKD Assessment/Plan improivng iv abx on Vancomycin f/u renal parameters check electrolytes f/u ID recommendations. Subjective ROS Limited/Unobtainable: No Constitutional: Reports: no symptoms HEENT: Repors: no symptoms Respiratory: Reports: no symptoms Allergies: Coded Allergies: DOXYCYCLINE (Verified Allergy, Unknown, 07/21/15) Objective Last 24 Hour Vital Signs Date Time Temp Pulse Resp B/P (MAP) Pulse Ox O2 Delivery O2 Flow Rate FiO2 09/25/17 20:00 97.7 81 20 142/79 97 Room Air 97.7 09/25/17 16:55 Room Air 09/25/17 16:00 98.1 83 19 140/82 98 98.1 09/25/17 14:17 97.3 09/25/17 13:20 84 151/85 09/25/17 13:18 97.3 09/25/17 13:15 Room Air 09/25/17 12:00 97.3 74 20 164/95 100 97.3 09/25/17 08:22 Room Air 09/25/17 08:00 98.0 74 20 132/75 100 98.0 09/25/17 03:36 98.1 66 20 132/64 99 Room Air 98.1 88 09/25/17 00:51 97.0 84 20 127/75 95 Room Air 97.0 Intake and Output 09/24/17 09/25/17 19:00 07:00 Intake Total 1090 ml 800 ml Balance 1090 ml 800 ml Intake Oral 480 ml 200 ml IV Total 610 ml 600 ml # Voids 2 # Bowel Movements 1 Objective General Appearance: no apparent distress Head: normocephalic, atraumatic Eyes: bilateral eye PERRL, bilateral eye EOMI ENT: normal pharynx, no angioedema Neck: supple, thyroid normal Respiratory: lungs clear, normal breath sounds Cardiovascular #1: regular rate, rhythm Gastrointestinal: non tender, soft Ext. slightly warmth and redness at right calf Laboratory Tests 09/25/17 04:14: Urine Eosinophils None seen 09/25/17 05:10: White Blood Count 6.5, Red Blood Count 4.49, Hemoglobin 11.9L, Hematocrit 35.7L , Mean Corpuscular Volume 80, Mean Corpuscular Hemoglobin 26.6L, Mean Corpuscular Hemoglobin Concent 33.4, Red Cell Distribution Width 13.2, Platelet Count 304, Mean Platelet Volume 7.5, Neutrophils (%) (Auto) 61.5, Lymphocytes (% ) (Auto) 27.9, Monocytes (%) (Auto) 6.6, Eosinophils (%) (Auto) 2.8, Basophils ( %) (Auto) 1.2, Sodium Level 141, Potassium Level 4.6, Chloride Level 109H, Carbon Dioxide Level 26, Anion Gap 6, Blood Urea Nitrogen 22H, Creatinine 1.7H, Estimat Glomerular Filtration Rate 37.6, Glucose Level 93, Uric Acid 5.8, Calcium Level 8.6, Phosphorus Level 3.3, Magnesium Level 1.9, Total Bilirubin 0.1L, Aspartate Amino Transf (AST/SGOT) 26, Alanine Aminotransferase (ALT/SGPT) 31, Alkaline Phosphatase 59, Total Protein 7.4, Albumin 2.5L, Globulin 4.9, Albumin/Globulin Ratio 0.5L Current Medications Medications (Trade) Dose Ordered Sig/Ene Route PRN Reason Start Time Stop Time Status Last Admin Dose Admin Acetaminophen (Tylenol) 650 mg Q6H PRN ORAL Mild Pain/Temp > 100.5 09/21/17 23:00 10/21/17 22:59 Acetaminophen/ Hydrocodone Bitart ([place] 5/325) 1 tab Q4H PRN ORAL Moderate Pain (Pain Scale 4-6) 09/21/17 23:00 09/28/17 22:59 09/25/17 20:24 Apixaban (Eliquis) 5 mg BID ORAL 09/22/17 09:00 10/22/17 08:59 09/25/17 17:09 Aspirin (ASA) 81 mg DAILY ORAL 09/23/17 09:00 10/23/17 08:59 09/25/17 08:22 Atorvastatin Calcium (Lipitor) 10 mg BEDTIME ORAL 09/22/17 21:00 10/22/17 20:59 09/25/17 20:23 Docusate Sodium (Colace) 100 mg TID ORAL 09/22/17 18:00 10/22/17 17:59 09/25/17 17:08 Lansoprazole (Prevacid) 30 mg DAILY ORAL 09/22/17 16:30 10/22/17 16:29 09/25/17 08:23 Sodium Chloride 1,000 ml @ 50 mls/hr Q20H IV 09/22/17 17:00 10/22/17 16:59 09/25/17 20:24 Vancomycin HCl (Vanco rx to dose) 1 ea DAILY PRN MISC Per rx protocol 09/21/17 23:00 10/21/17 22:59 Vancomycin HCl 500 mg/Sodium Chloride 110 ml @ 110 mls/hr Q24H IV 09/22/17 15:00 09/27/17 14:59 09/25/17 15:03 NEY LOVE Sep 25, 2017 22:35
[2017-09-26] VITALS: BP 138/70
[2017-09-26 03:09] VITALS: BP 146/76
[2017-09-26 08:00] VITALS: BP 147/84
[2017-09-26] MEDS: Aspirin Baby 81mg ORAL SCH (08:34)
[2017-09-26] MEDS: Docusate 100mg cap ORAL SCH ×3 (08:35→17:07)
[2017-09-26] MEDS: Eliquis 2.5mg tablet ORAL SCH ×2 (08:35→17:07)
--- NOTE | 2017-09-26 10:48 | Infectious Diseases Prog Note ---
Assessment/Plan Assessment/Plan ASSESSMENT: This is a 57-year-old female with Right lower extremity cellulitis , overall improved but an area of induration, extremely tender and some fluctuance is concerning for abscess Bl Leg: Doppler, no evidence of DVT on the right Bcx NTD HIV test : Neg Afebrile, no leukocytosis Acute renal insufficiency/dehydration, improving Hypertension Hyperlipidemia CKD History of DVT PLAN: continue the patient on IV vancomycin d# -14 ; upon discharge can be transition to PO Bactrim DS 1 tab bid and Keflex 500mg q8h -US R leg and surgery eval for possible abscess formation, may need I+D Monitor CBC. Monitor BMP. Monitor blood culture Discussed with Dr Ramos and Dr Vo Subjective Allergies: Coded Allergies: DOXYCYCLINE (Verified Allergy, Unknown, 07/21/15) Subjective afebrile no leukocytosis Bcx NTD Leg improving but area on medial leg extremely tender Objective Vital Signs Last 24 Hour Vital Signs Date Time Temp Pulse Resp B/P (MAP) Pulse Ox O2 Delivery O2 Flow Rate FiO2 09/26/17 08:21 Room Air 09/26/17 08:00 97.7 84 19 147/84 98 97.7 09/26/17 03:09 97.7 82 20 146/76 99 Room Air 97.7 83 09/26/17 00:00 98.0 76 18 138/70 99 Room Air 98.0 09/25/17 20:00 97.7 81 20 142/79 97 Room Air 97.7 09/25/17 16:55 Room Air 09/25/17 16:00 98.1 83 19 140/82 98 98.1 09/25/17 14:17 97.3 09/25/17 13:20 84 151/85 09/25/17 13:18 97.3 09/25/17 13:15 Room Air 09/25/17 12:00 97.3 74 20 164/95 100 97.3 Height (Feet): 5 Height (Inches): 8.00 Weight (Pounds): 165 Objective HEENT: anicteric Respiratory/Chest: no respiratory distress Cardiovascular: regularly irregular Abdomen: non distended Ext: R leg - on medial aspect in mid of leg there is an area of induration, extremely tender, +erythematous and swollen with some fluctuance. L leg with chronic venous stasis changes, prior scars for previous cellulitis process Current Medications Medications (Trade) Dose Ordered Sig/Ene Route PRN Reason Start Time Stop Time Status Last Admin Dose Admin Acetaminophen (Tylenol) 650 mg Q6H PRN ORAL Mild Pain/Temp > 100.5 09/21/17 23:00 10/21/17 22:59 Acetaminophen/ Hydrocodone Bitart ([place] 5/325) 1 tab Q4H PRN ORAL Moderate Pain (Pain Scale 4-6) 09/21/17 23:00 09/28/17 22:59 09/25/17 20:24 Apixaban (Eliquis) 5 mg BID ORAL 09/22/17 09:00 10/22/17 08:59 09/26/17 08:35 Aspirin (ASA) 81 mg DAILY ORAL 09/23/17 09:00 10/23/17 08:59 09/26/17 08:34 Atorvastatin Calcium (Lipitor) 10 mg BEDTIME ORAL 09/22/17 21:00 10/22/17 20:59 09/25/17 20:23 Docusate Sodium (Colace) 100 mg TID ORAL 09/22/17 18:00 10/22/17 17:59 09/26/17 08:35 Lansoprazole (Prevacid) 30 mg DAILY ORAL 09/22/17 16:30 10/22/17 16:29 09/26/17 08:35 Sodium Chloride 1,000 ml @ 50 mls/hr Q20H IV 09/22/17 17:00 10/22/17 16:59 09/25/17 20:24 Vancomycin HCl (Vanco rx to dose) 1 ea DAILY PRN MISC Per rx protocol 09/21/17 23:00 10/21/17 22:59 Vancomycin HCl 500 mg/Sodium Chloride 110 ml @ 110 mls/hr Q24H IV 09/22/17 15:00 09/27/17 14:59 09/25/17 15:03 Suzy Graham M.D. Sep 26, 2017 10:48
--- NOTE | 2017-09-26 11:04 | Pulmonology Progress Note ---
Assessment/Plan Problems: (1) Cellulitis (2) Depression (3) HTN (hypertension) (4) MARYAM on CKD Assessment/Plan sugical evaluation called iv abx on Vancomycin f/u renal parameters check electrolytes f/u ID recommendations. Subjective ROS Limited/Unobtainable: No Constitutional: Reports: no symptoms HEENT: Repors: no symptoms Respiratory: Reports: no symptoms Allergies: Coded Allergies: DOXYCYCLINE (Verified Allergy, Unknown, 07/21/15) Objective Last 24 Hour Vital Signs Date Time Temp Pulse Resp B/P (MAP) Pulse Ox O2 Delivery O2 Flow Rate FiO2 09/26/17 08:21 Room Air 09/26/17 08:00 97.7 84 19 147/84 98 97.7 09/26/17 03:09 97.7 82 20 146/76 99 Room Air 97.7 83 09/26/17 00:00 98.0 76 18 138/70 99 Room Air 98.0 09/25/17 20:00 97.7 81 20 142/79 97 Room Air 97.7 09/25/17 16:55 Room Air 09/25/17 16:00 98.1 83 19 140/82 98 98.1 09/25/17 14:17 97.3 09/25/17 13:20 84 151/85 09/25/17 13:18 97.3 09/25/17 13:15 Room Air 09/25/17 12:00 97.3 74 20 164/95 100 97.3 Intake and Output 09/25/17 09/26/17 19:00 07:00 Intake Total 940 ml 415 ml Balance 940 ml 415 ml Intake Oral 680 ml 240 ml IV Total 260 ml 175 ml # Voids 4 3 Objective General Appearance: no apparent distress Head: normocephalic, atraumatic Eyes: bilateral eye PERRL, bilateral eye EOMI ENT: normal pharynx, no angioedema Neck: supple, thyroid normal Respiratory: lungs clear, normal breath sounds Cardiovascular #1: regular rate, rhythm Gastrointestinal: non tender, soft Ext. slightly warmth and redness at right calf Current Medications Medications (Trade) Dose Ordered Sig/Ene Route PRN Reason Start Time Stop Time Status Last Admin Dose Admin Acetaminophen (Tylenol) 650 mg Q6H PRN ORAL Mild Pain/Temp > 100.5 09/21/17 23:00 10/21/17 22:59 Acetaminophen/ Hydrocodone Bitart ([place] 5/325) 1 tab Q4H PRN ORAL Moderate Pain (Pain Scale 4-6) 09/21/17 23:00 09/28/17 22:59 09/25/17 20:24 Apixaban (Eliquis) 5 mg BID ORAL 09/22/17 09:00 10/22/17 08:59 09/26/17 08:35 Aspirin (ASA) 81 mg DAILY ORAL 09/23/17 09:00 10/23/17 08:59 09/26/17 08:34 Atorvastatin Calcium (Lipitor) 10 mg BEDTIME ORAL 09/22/17 21:00 10/22/17 20:59 09/25/17 20:23 Docusate Sodium (Colace) 100 mg TID ORAL 09/22/17 18:00 10/22/17 17:59 09/26/17 08:35 Lansoprazole (Prevacid) 30 mg DAILY ORAL 09/22/17 16:30 10/22/17 16:29 09/26/17 08:35 Sodium Chloride 1,000 ml @ 50 mls/hr Q20H IV 09/22/17 17:00 10/22/17 16:59 09/25/17 20:24 Vancomycin HCl (Vanco rx to dose) 1 ea DAILY PRN MISC Per rx protocol 09/21/17 23:00 10/21/17 22:59 Vancomycin HCl 500 mg/Sodium Chloride 110 ml @ 110 mls/hr Q24H IV 09/22/17 15:00 09/27/17 14:59 09/25/17 15:03 NEY LOVE Sep 26, 2017 11:04
[2017-09-26] MEDS ORDERED: Tubing IV Secondary IV ONE (11:13)
--- NOTE | 2017-09-26 11:30 | Nephrology Progress Note ---
Assessment/Plan Problem List: (1) MARYAM on CKD (2) HTN (hypertension) Assessment Admitted for Cellulitis Acute renal failure Cr 2.6 on admit now lowering ( Was on HCTZ and Lasix) Cr 1.7 stable ? CKD underlying Proteinuria / HypoAlbuminemia HTN Plan Plan: no labs today Slow hydrate- Urine studies 2D echo : Left ventricular ejection fraction estimated to be 70-75 %. Mild left ventricular hypertrophy by 2-D. per consultants Kidney CARI No evidence of hydronephrosis or sonographically appreciable renal stones. Renal parenchymal echogenicity appears within normal limits. Bladder decompressed, limiting its evaluation. Subjective ROS Limited/Unobtainable: No Objective Objective Last 24 Hour Vital Signs Date Time Temp Pulse Resp B/P (MAP) Pulse Ox O2 Delivery O2 Flow Rate FiO2 09/26/17 08:21 Room Air 09/26/17 08:00 97.7 84 19 147/84 98 97.7 09/26/17 03:09 97.7 82 20 146/76 99 Room Air 97.7 83 09/26/17 00:00 98.0 76 18 138/70 99 Room Air 98.0 09/25/17 20:00 97.7 81 20 142/79 97 Room Air 97.7 09/25/17 16:55 Room Air 09/25/17 16:00 98.1 83 19 140/82 98 98.1 09/25/17 14:17 97.3 09/25/17 13:20 84 151/85 09/25/17 13:18 97.3 09/25/17 13:15 Room Air 09/25/17 12:00 97.3 74 20 164/95 100 97.3 Intake and Output 09/25/17 09/26/17 19:00 07:00 Intake Total 940 ml 415 ml Balance 940 ml 415 ml Intake Oral 680 ml 240 ml IV Total 260 ml 175 ml # Voids 4 3 Height (Feet): 5 Height (Inches): 8.00 Weight (Pounds): 165 General Appearance: no apparent distress Respiratory/Chest: lungs clear Abdomen: soft Objective no change- Right lower extremity cellulitis , overall improved but an area of induration, extremely tender and some fluctuance is concerning for abscess Bl Leg: Doppler, no evidence of DVT on the right CARROLL PADILLA Sep 26, 2017 11:30
[2017-09-26 12:00] VITALS: BP 145/92
--- NOTE | 2017-09-26 12:13 | Consultation ---
History of Present Illness General Date patient seen: Sep 26, 2017 Chief Complaint: Pain Reason for Consultation: cellulitis of RLE Present Illness HPI 57 year old female with multiple medical comorbidities as noted below presented with right lower extremity pain for 2 months. states that for the past 2 months her distal anterior right leg has been causing discomfort which has not significantly improved. states she has been to the emergency department on 2 prior occasions; does not recall which ED but states at outside facility. Has been given oral Abx prior without improvement. As pain worsened came to ED at [facility] [place] for evaluation. otherwise well. Allergies: Coded Allergies: DOXYCYCLINE (Verified Allergy, Unknown, 07/21/15) Medication History Scheduled Aspirin* (Aspirin*), 81 MG ORAL DAILY, (Reported) Atorvastatin Calcium* (Lipitor*), 10 MG ORAL BEDTIME, (Reported) Doxycycline Hyclate* (Vibramycin*), 100 MG ORAL EVERY 12 HOURS Furosemide* (Lasix*), 20 MG ORAL DAILY, (Reported) Hydrochlorothiazide* (Hydrochlorothiazide*), 25 MG ORAL DAILY, (Reported) Nifedipine (Nifedipine*), 30 MG ORAL DAILY, (Reported) Omeprazole (Omeprazole), 20 MG ORAL DAILY Warfarin Sod (Coumadin*), 7.5 MG ORAL DAILY Scheduled PRN Hydrocodone Bit/Acetaminophen 5-325* ([place] 5-325*), 1 TAB ORAL Q4H PRN for For Pain Ondansetron Odt* (Zofran Odt*), 4 MG ORAL Q8H PRN for Nausea & Vomiting Miscellaneous Medications Apixaban (Eliquis), 5 MG PO, (Reported) Chlorothiazide (Chlorothiazide), Unknown Dose PO, (Reported) Nitroglycerin (Nitroglycerin), 0.4 MG SL, (Reported) Patient History History Provided By: Patient, Medical Record Healthcare decision maker N Resuscitation status Full Code Advanced Directive on File Past Medical/Surgical History Past Medical/Surgical History: (1) Cough (2) Body aches (3) Leg pain, left (4) Leg edema, left (5) Headache (6) Flu-like symptoms (7) Bronchitis (8) URI (upper respiratory infection) (9) URI (upper respiratory infection) (10) acute left lower extremity DVT (11) Headache (12) Abscess or cellulitis of face (13) Abscess or cellulitis of face (14) Warfarin-induced coagulopathy (15) Warfarin-induced coagulopathy (16) Subtherapeutic anticoagulation (17) Abdominal pain (18) HTN (hypertension) (19) HLD (hyperlipidemia) (20) MARYAM on CKD (21) Cellulitis (22) Depression (23) CKD (chronic kidney disease) (24) Cellulitis Review of Systems Constitutional: Denies: no symptoms, see HPI, chills, sweats, fever, malaise, weakness, other Eye: Denies: no symptoms, see HPI, eye pain, blurred vision, tearing, double vision, nose pain, nose congestion, acuity changes, discharge, other ENT: Denies: no symptoms, see HPI, ear pain, ear discharge, nose pain, nose congestion, throat pain, throat swelling, mouth pain, hearing loss, nasal discharge, other Respiratory: Denies: no symptoms, see HPI, cough, orthopnea, shortness of breath, stridor, wheezing, MILLER, sputum, other Cardiovascular: Denies: no symptoms, see HPI, chest pain, edema, palpitations, syncope, PND, other Gastrointestinal: Denies: no symptoms, see HPI, abdominal pain, constipation, diarrhea, nausea, vomiting, melena, hematemesis, other Genitourinary: Denies: no symptoms, see HPI, discharge, dysuria, frequency, hematuria, pain, retention, incontinence, urgency, vag bleed/dc, other Musculoskeletal: Reports: other - RLE distal anterior pain Skin: Denies: no symptoms, see HPI, rash, change in color, change in hair/nails , dryness, lesions, other Psychiatric: Denies: no symptoms, see HPI, prior hx, anxiety, depressed feelings, emotional problems, SI, HI, hallucinations, other Neurological: Denies: no symptoms, see HPI, headache, numbness, paresthesia, seizure, tingling, tremors, focal weakness, syncope, dizziness, other Endocrine: Denies: no symptoms, see HPI, excessive sweating, flushing, intolerance to temperature, increased thirst, increased urine, unexplained weight loss, other Hematologic/Lymphatic: Denies: no symptoms, see HPI, anemia, blood clots, easy bleeding, easy bruising, swollen glands, diathesis, other Physical Exam General Appearance: no apparent distress, alert Lines, tubes and drains: peripheral HEENT: normocephalic, atraumatic, other - right eye off Neck: normal alignment Respiratory/Chest: lungs clear, normal breath sounds, no respiratory distress, no accessory muscle use Cardiovascular/Chest: normal peripheral pulses, normal rate, regular rhythm Abdomen: normal bowel sounds, non tender, soft, no organomegaly, no mass Extremities: other - distal anterior tibial RLE there is area of warmth, tendnerness, edema/cellulitis. no drainage. no fluctuance Skin Exam: normal pigmentation Neurologic: alert, oriented x 3 Last 24 Hour Vital Signs Date Time Temp Pulse Resp B/P (MAP) Pulse Ox O2 Delivery O2 Flow Rate FiO2 09/26/17 08:21 Room Air 09/26/17 08:00 97.7 84 19 147/84 98 97.7 09/26/17 03:09 97.7 82 20 146/76 99 Room Air 97.7 83 09/26/17 00:00 98.0 76 18 138/70 99 Room Air 98.0 09/25/17 20:00 97.7 81 20 142/79 97 Room Air 97.7 09/25/17 16:55 Room Air 09/25/17 16:00 98.1 83 19 140/82 98 98.1 09/25/17 14:17 97.3 09/25/17 13:20 84 151/85 09/25/17 13:18 97.3 09/25/17 13:15 Room Air Intake and Output 09/25/17 09/26/17 19:00 07:00 Intake Total 940 ml 415 ml Balance 940 ml 415 ml Intake Oral 680 ml 240 ml IV Total 260 ml 175 ml # Voids 4 3 Laboratory Tests Test 09/26/17 11:52 C-Reactive Protein, Quantitative Pending Height (Feet): 5 Height (Inches): 8.00 Weight (Pounds): 165 Medications Current Medications Medications (Trade) Dose Ordered Sig/Ene Route PRN Reason Start Time Stop Time Status Last Admin Dose Admin Acetaminophen (Tylenol) 650 mg Q6H PRN ORAL Mild Pain/Temp > 100.5 09/21/17 23:00 10/21/17 22:59 Acetaminophen/ Hydrocodone Bitart ([place] 5/325) 1 tab Q4H PRN ORAL Moderate Pain (Pain Scale 4-6) 09/21/17 23:00 09/28/17 22:59 09/25/17 20:24 Apixaban (Eliquis) 5 mg BID ORAL 09/22/17 09:00 10/22/17 08:59 09/26/17 08:35 Aspirin (ASA) 81 mg DAILY ORAL 09/23/17 09:00 10/23/17 08:59 09/26/17 08:34 Atorvastatin Calcium (Lipitor) 10 mg BEDTIME ORAL 09/22/17 21:00 10/22/17 20:59 09/25/17 20:23 Docusate Sodium (Colace) 100 mg TID ORAL 09/22/17 18:00 10/22/17 17:59 09/26/17 08:35 Lansoprazole (Prevacid) 30 mg DAILY ORAL 09/22/17 16:30 10/22/17 16:29 09/26/17 08:35 Sodium Chloride 1,000 ml @ 50 mls/hr Q20H IV 09/22/17 17:00 10/22/17 16:59 09/25/17 20:24 Vancomycin HCl (Vanco rx to dose) 1 ea DAILY PRN MISC Per rx protocol 09/21/17 23:00 10/21/17 22:59 Vancomycin HCl 500 mg/Sodium Chloride 110 ml @ 110 mls/hr Q24H IV 09/22/17 15:00 09/27/17 14:59 09/25/17 15:03 Assessment/Plan Problem List: (1) Cellulitis Assessment & Plan: 57 F with right lower extremity cellulitis possible abscess. Afebrile, HD stable, labs okay. on exam note tender/warm/edema on distal right anterior leg. no fluctuance noted but very tender/warm. will likely need I&D but would recommend ultrasound first to identify location/ tracking of infection. possibly without abscess and just cellulitis but unsure given exam limited due to pain. -US RLE eval for abscess -cont Abx -will follow with recs. likely I&D but will await ultrasound results thank you for this consult. ICD Codes: L03.90 - Cellulitis SNOMED: [id number] Qualifiers: Status: stable Toney Vo Sep 26, 2017 12:13
[2017-09-26] MEDS: Vancomycin 500 MG in NS 110 ML IV SCH (15:06)
[2017-09-26 16:00] VITALS: BP 141/90
[2017-09-26 20:00] VITALS: BP 149/78
[2017-09-26] MEDS: Norco 5mg/325mg tab ORAL PRN (20:56)
[2017-09-27] VITALS: BP 137/76
[2017-09-27 04:00] VITALS: BP 143/77
[2017-09-27 07:27] LABS: BASOPHILS % (AUTO) 1.3 % (0.0-2.0); HEMATOCRIT 35.9 % (37.0-47.0); HEMOGLOBIN 11.9 G/DL (12.0-16.0); LYMPHOCYTES % (AUTO) 25.5 % (20.0-45.0); MEAN CORPUSCULAR VOLUME 79 FL (80-99); MONOCYTES % (AUTO) 8.4 % (1.0-10.0); NEUTROPHILS % (AUTO) 61.8 % (45.0-75.0); PLATELET COUNT 299 K/UL (150-450); RED BLOOD COUNT 4.54 M/UL (4.20-5.40); WHITE BLOOD COUNT 6.9 K/UL (4.8-10.8)
[2017-09-27 07:37] LABS: ALANINE AMINOTRANSFERASE 31 U/L (12-78); ALBUMIN 2.5 G/DL (3.4-5.0); ALBUMIN/GLOBULIN RATIO 0.5 (1.0-2.7); ALKALINE PHOSPHATASE 57 U/L (46-116); ANION GAP 4 mmol/L (5-15); ASPARTATE AMINO TRANSFERASE 31 U/L (15-37); BILIRUBIN,TOTAL 0.2 MG/DL (0.2-1.0); BLOOD UREA NITROGEN 19 mg/dL (7-18); CALCIUM 8.9 MG/DL (8.5-10.1); CARBON DIOXIDE 28 MMOL/L (21-32); CHLORIDE 108 MMOL/L (98-107); CREATININE 1.4 MG/DL (0.55-1.30); PHOSPHORUS 3.8 MG/DL (2.5-4.9); POTASSIUM 4.6 MMOL/L (3.5-5.1); SODIUM 140 MMOL/L (136-145)
[2017-09-27 08:00] VITALS: BP 155/81
[2017-09-27] MEDS: Docusate 100mg cap ORAL SCH ×3 (08:15→17:57)
[2017-09-27] MEDS: Aspirin Baby 81mg ORAL SCH (08:15)
[2017-09-27] MEDS: Eliquis 2.5mg tablet ORAL SCH ×2 (08:16→17:59)
[2017-09-27] MEDS: Norco 5mg/325mg tab ORAL PRN ×4 (08:17→23:41)
[2017-09-27] MEDS ORDERED: Tubing IV Secondary IV ONE (09:59)
--- NOTE | 2017-09-27 11:32 | Nephrology Progress Note ---
Assessment/Plan Problem List: (1) MARYAM on CKD (2) HTN (hypertension) Assessment Admitted for Cellulitis Acute renal failure Cr 2.6 on admit now lowering ( Was on HCTZ and Lasix) Cr 1.7 stable ? CKD underlying Proteinuria / HypoAlbuminemia HTN Plan Plan: no labs today Slow hydrate- Urine studies 2D echo : Left ventricular ejection fraction estimated to be 70-75 %. Mild left ventricular hypertrophy by 2-D. per consultants Kidney CARI No evidence of hydronephrosis or sonographically appreciable renal stones. Renal parenchymal echogenicity appears within normal limits. Bladder decompressed, limiting its evaluation. Subjective ROS Limited/Unobtainable: No Constitutional: Reports: malaise Objective Objective Last 24 Hour Vital Signs Date Time Temp Pulse Resp B/P (MAP) Pulse Ox O2 Delivery O2 Flow Rate FiO2 09/27/17 09:16 97.9 09/27/17 08:17 97.9 09/27/17 08:00 97.0 79 18 155/81 99 97.0 09/27/17 04:00 97.9 80 19 143/77 95 Room Air 97.9 09/27/17 00:00 97.7 85 20 137/76 96 Room Air 97.7 09/26/17 20:56 97.6 09/26/17 20:00 98.1 93 19 149/78 97 Room Air 98.1 09/26/17 17:13 Room Air 09/26/17 16:00 97.6 76 18 141/90 99 97.6 09/26/17 13:45 Room Air 09/26/17 12:00 97.7 75 18 145/92 100 97.7 Intake and Output 09/26/17 09/27/17 19:00 07:00 Intake Total 480 ml Balance 480 ml Intake Oral 480 ml # Voids 2 Laboratory Tests 09/26/17 11:52: C-Reactive Protein, Quantitative 0.7 09/27/17 06:15: White Blood Count 6.9, Red Blood Count 4.54, Hemoglobin 11.9L, Hematocrit 35.9L , Mean Corpuscular Volume 79L, Mean Corpuscular Hemoglobin 26.2L, Mean Corpuscular Hemoglobin Concent 33.1, Red Cell Distribution Width 13.0, Platelet Count 299, Mean Platelet Volume 7.3, Neutrophils (%) (Auto) 61.8, Lymphocytes (% ) (Auto) 25.5, Monocytes (%) (Auto) 8.4, Eosinophils (%) (Auto) 3.0, Basophils ( %) (Auto) 1.3, Erythrocyte Sedimentation Rate 80H, Sodium Level 140, Potassium Level 4.6, Chloride Level 108H, Carbon Dioxide Level 28, Anion Gap 4L, Blood Urea Nitrogen 19H, Creatinine 1.4H, Estimat Glomerular Filtration Rate 46.9, Glucose Level 91, Uric Acid 5.5, Calcium Level 8.9, Phosphorus Level 3.8, Magnesium Level 1.7L, Total Bilirubin 0.2, Aspartate Amino Transf (AST/SGOT) 31 , Alanine Aminotransferase (ALT/SGPT) 31, Alkaline Phosphatase 57, Pro-B-Type Natriuretic Peptide 1102H, Total Protein 7.1, Albumin 2.5L, Globulin 4.6, Albumin/Globulin Ratio 0.5L Height (Feet): 5 Height (Inches): 8.00 Weight (Pounds): 165 General Appearance: no apparent distress Objective no change- Right lower extremity cellulitis , overall improved but an area of induration, extremely tender and some fluctuance is concerning for abscess Bl Leg: Doppler, no evidence of DVT on the right CARROLL PADILLA Sep 27, 2017 11:32
[2017-09-27 12:09] VITALS: BP 157/92
[2017-09-27] MEDS: Vancomycin 500 MG in NS 110 ML IV SCH (14:55)
--- NOTE | 2017-09-27 15:34 | General Surgery Progress Note ---
General Surgery-Progress Note Subjective Symptoms: improved Additional Comments still with pain. on exam edema, erythema, cellulitis improved. Objective Last 24 Hour Vital Signs Date Time Temp Pulse Resp B/P (MAP) Pulse Ox O2 Delivery O2 Flow Rate FiO2 09/27/17 13:30 98.2 09/27/17 12:33 98.2 09/27/17 12:09 98.2 70 20 157/92 98 Room Air 98.2 09/27/17 08:17 97.9 09/27/17 08:00 97.0 79 18 155/81 99 97.0 09/27/17 04:00 97.9 80 19 143/77 95 Room Air 97.9 09/27/17 00:00 97.7 85 20 137/76 96 Room Air 97.7 09/26/17 20:56 97.6 09/26/17 20:00 98.1 93 19 149/78 97 Room Air 98.1 09/26/17 17:13 Room Air 09/26/17 16:00 97.6 76 18 141/90 99 97.6 I&O Intake and Output 09/26/17 09/27/17 19:00 07:00 Intake Total 480 ml Balance 480 ml Intake Oral 480 ml # Voids 2 Wound: clean Cardiovascular: RSR Respiratory: clear Abdomen: soft, flat, non-tender Extremities: tenderness, no cyanosis, pulses Laboratory Tests Test 09/27/17 06:15 White Blood Count 6.9 K/UL (4.8-10.8) Red Blood Count 4.54 M/UL (4.20-5.40) Hemoglobin 11.9 G/DL (12.0-16.0) L Hematocrit 35.9 % (37.0-47.0) L Mean Corpuscular Volume 79 FL (80-99) L Mean Corpuscular Hemoglobin 26.2 PG (27.0-31.0) L Mean Corpuscular Hemoglobin Concent 33.1 G/DL (32.0-36.0) Red Cell Distribution Width 13.0 % (11.6-14.8) Platelet Count 299 K/UL (150-450) Mean Platelet Volume 7.3 FL (6.5-10.1) Neutrophils (%) (Auto) 61.8 % (45.0-75.0) Lymphocytes (%) (Auto) 25.5 % (20.0-45.0) Monocytes (%) (Auto) 8.4 % (1.0-10.0) Eosinophils (%) (Auto) 3.0 % (0.0-3.0) Basophils (%) (Auto) 1.3 % (0.0-2.0) Erythrocyte Sedimentation Rate 80 MM/HR (0-30) H Sodium Level 140 MMOL/L (136-145) Potassium Level 4.6 MMOL/L (3.5-5.1) Chloride Level 108 MMOL/L (98-107) H Carbon Dioxide Level 28 MMOL/L (21-32) Anion Gap 4 mmol/L (5-15) L Blood Urea Nitrogen 19 mg/dL (7-18) H Creatinine 1.4 MG/DL (0.55-1.30) H Estimat Glomerular Filtration Rate 46.9 mL/min (>60) Glucose Level 91 MG/DL (74-106) Uric Acid 5.5 MG/DL (2.6-7.2) Calcium Level 8.9 MG/DL (8.5-10.1) Phosphorus Level 3.8 MG/DL (2.5-4.9) Magnesium Level 1.7 MG/DL (1.8-2.4) L Total Bilirubin 0.2 MG/DL (0.2-1.0) Aspartate Amino Transf (AST/SGOT) 31 U/L (15-37) Alanine Aminotransferase (ALT/SGPT) 31 U/L (12-78) Alkaline Phosphatase 57 U/L (46-116) Pro-B-Type Natriuretic Peptide 1102 pg/mL (0-125) H Total Protein 7.1 G/DL (6.4-8.2) Albumin 2.5 G/DL (3.4-5.0) L Globulin 4.6 g/dL Albumin/Globulin Ratio 0.5 (1.0-2.7) L Plan Problems: (1) Cellulitis Assessment & Plan: 57 F with right lower extremity cellulitis possible abscess. Afebrile, HD stable, labs okay. on exam note tender/warm/edema on distal right anterior leg. no fluctuance noted but very tender/warm. will likely need I&D but would recommend ultrasound first to identify location/ tracking of infection. possibly without abscess and just cellulitis but unsure given exam limited due to pain. on exam cellulitis improving. -pending ultrasound read -cont Abx -will follow with recs. thank you for this consult. Toney Vo Sep 27, 2017 15:34
[2017-09-27 16:47] VITALS: BP 144/84
--- NOTE | 2017-09-27 17:33 | Pulmonology Progress Note ---
Assessment/Plan Problems: (1) Cellulitis (2) Depression (3) HTN (hypertension) (4) MARYAM on CKD Assessment/Plan sugical evaluation called iv abx on Vancomycin f/u renal parameters check electrolytes f/u ID recommendations. Subjective ROS Limited/Unobtainable: No Constitutional: Reports: no symptoms HEENT: Repors: no symptoms Allergies: Coded Allergies: DOXYCYCLINE (Verified Allergy, Unknown, 07/21/15) Objective Last 24 Hour Vital Signs Date Time Temp Pulse Resp B/P (MAP) Pulse Ox O2 Delivery O2 Flow Rate FiO2 09/27/17 16:47 98.5 76 20 144/84 97 Room Air 98.5 09/27/17 13:30 98.2 09/27/17 12:33 98.2 09/27/17 12:09 98.2 70 20 157/92 98 Room Air 98.2 09/27/17 08:17 97.9 09/27/17 08:00 97.0 79 18 155/81 99 97.0 09/27/17 04:00 97.9 80 19 143/77 95 Room Air 97.9 09/27/17 00:00 97.7 85 20 137/76 96 Room Air 97.7 09/26/17 20:56 97.6 09/26/17 20:00 98.1 93 19 149/78 97 Room Air 98.1 Intake and Output 09/26/17 09/27/17 19:00 07:00 Intake Total 480 ml Balance 480 ml Intake Oral 480 ml # Voids 2 Objective General Appearance: no apparent distress Head: normocephalic, atraumatic Eyes: bilateral eye PERRL, bilateral eye EOMI ENT: normal pharynx, no angioedema Neck: supple, thyroid normal Respiratory: lungs clear, normal breath sounds Cardiovascular #1: regular rate, rhythm Gastrointestinal: non tender, soft Ext. slightly warmth and redness at right calf Laboratory Tests 09/27/17 06:15: White Blood Count 6.9, Red Blood Count 4.54, Hemoglobin 11.9L, Hematocrit 35.9L , Mean Corpuscular Volume 79L, Mean Corpuscular Hemoglobin 26.2L, Mean Corpuscular Hemoglobin Concent 33.1, Red Cell Distribution Width 13.0, Platelet Count 299, Mean Platelet Volume 7.3, Neutrophils (%) (Auto) 61.8, Lymphocytes (% ) (Auto) 25.5, Monocytes (%) (Auto) 8.4, Eosinophils (%) (Auto) 3.0, Basophils ( %) (Auto) 1.3, Erythrocyte Sedimentation Rate 80H, Sodium Level 140, Potassium Level 4.6, Chloride Level 108H, Carbon Dioxide Level 28, Anion Gap 4L, Blood Urea Nitrogen 19H, Creatinine 1.4H, Estimat Glomerular Filtration Rate 46.9, Glucose Level 91, Uric Acid 5.5, Calcium Level 8.9, Phosphorus Level 3.8, Magnesium Level 1.7L, Total Bilirubin 0.2, Aspartate Amino Transf (AST/SGOT) 31 , Alanine Aminotransferase (ALT/SGPT) 31, Alkaline Phosphatase 57, Pro-B-Type Natriuretic Peptide 1102H, Total Protein 7.1, Albumin 2.5L, Globulin 4.6, Albumin/Globulin Ratio 0.5L Current Medications Medications (Trade) Dose Ordered Sig/Ene Route PRN Reason Start Time Stop Time Status Last Admin Dose Admin Acetaminophen (Tylenol) 650 mg Q6H PRN ORAL Mild Pain/Temp > 100.5 09/21/17 23:00 10/21/17 22:59 Acetaminophen/ Hydrocodone Bitart ([place] 5/325) 1 tab Q4H PRN ORAL Moderate Pain (Pain Scale 4-6) 09/21/17 23:00 09/28/17 22:59 09/27/17 12:33 Apixaban (Eliquis) 5 mg BID ORAL 09/22/17 09:00 10/22/17 08:59 09/27/17 08:16 Aspirin (ASA) 81 mg DAILY ORAL 09/23/17 09:00 10/23/17 08:59 09/27/17 08:15 Atorvastatin Calcium (Lipitor) 10 mg BEDTIME ORAL 09/22/17 21:00 10/22/17 20:59 09/26/17 20:54 Docusate Sodium (Colace) 100 mg TID ORAL 09/22/17 18:00 10/22/17 17:59 09/27/17 12:33 Lansoprazole (Prevacid) 30 mg DAILY ORAL 09/22/17 16:30 10/22/17 16:29 09/27/17 08:16 Vancomycin HCl (Vanco rx to dose) 1 ea DAILY PRN MISC Per rx protocol 09/21/17 23:00 10/21/17 22:59 Vancomycin HCl 500 mg/Sodium Chloride 110 ml @ 110 mls/hr Q24H IV 09/22/17 15:00 10/02/17 14:59 09/27/17 14:55 NEY LOVE Sep 27, 2017 17:33
[2017-09-27 20:00] VITALS: BP 135/93
[2017-09-28] VITALS: BP 150/90
[2017-09-28 04:00] VITALS: BP 143/92
[2017-09-28] MEDS: Norco 5mg/325mg tab ORAL PRN ×4 (05:29→17:27)
[2017-09-28 08:00] VITALS: BP 106/99
[2017-09-28 08:56] LABS: BASOPHILS % (AUTO) 1.3 % (0.0-2.0); EOSINOPHILS % (AUTO) 2.2 % (0.0-3.0); HEMATOCRIT 38.1 % (37.0-47.0); HEMOGLOBIN 12.6 G/DL (12.0-16.0); LYMPHOCYTES % (AUTO) 25.9 % (20.0-45.0); MEAN CORPUSCULAR VOLUME 79 FL (80-99); MONOCYTES % (AUTO) 6.8 % (1.0-10.0); NEUTROPHILS % (AUTO) 63.9 % (45.0-75.0); PLATELET COUNT 337 K/UL (150-450); RED CELL DISTRIBUTION WIDTH 12.9 % (11.6-14.8); WHITE BLOOD COUNT 7.7 K/UL (4.8-10.8)
[2017-09-28 09:15] LABS: ALANINE AMINOTRANSFERASE 29 U/L (12-78); ALBUMIN 2.5 G/DL (3.4-5.0); ALBUMIN/GLOBULIN RATIO 0.5 (1.0-2.7); ALKALINE PHOSPHATASE 66 U/L (46-116); ANION GAP 5 mmol/L (5-15); ASPARTATE AMINO TRANSFERASE 31 U/L (15-37); BILIRUBIN,TOTAL 0.2 MG/DL (0.2-1.0); BLOOD UREA NITROGEN 21 mg/dL (7-18); CALCIUM 8.7 MG/DL (8.5-10.1); CARBON DIOXIDE 27 MMOL/L (21-32); CHLORIDE 108 MMOL/L (98-107); CREATININE 1.3 MG/DL (0.55-1.30); PHOSPHORUS 4.3 MG/DL (2.5-4.9); POTASSIUM 4.6 MMOL/L (3.5-5.1); SODIUM 140 MMOL/L (136-145)
[2017-09-28] MEDS: Aspirin Baby 81mg ORAL SCH (09:22)
[2017-09-28] MEDS: Eliquis 2.5mg tablet ORAL SCH ×2 (09:22→17:58)
[2017-09-28] MEDS: Docusate 100mg cap ORAL SCH ×3 (09:22→17:27)
--- NOTE | 2017-09-28 10:15 | Infectious Diseases Prog Note ---
Assessment/Plan Assessment/Plan ASSESSMENT: This is a 57-year-old female with Right lower extremity cellulitis , overall improved but an area of induration, extremely tender and some fluctuance is concerning for abscess Bl Leg: Doppler, no evidence of DVT on the right Bcx NTD HIV test : Neg Afebrile, no leukocytosis Acute renal insufficiency/dehydration, improving Hypertension Hyperlipidemia CKD History of DVT PLAN: continue the patient on IV vancomycin d# 7 / -14 ; upon discharge can be transition to PO Bactrim DS 1 tab bid and Keflex 500mg q8h -US R leg and surgery eval for possible abscess formation, may need I+D Monitor CBC. Monitor BMP. Monitor blood culture Subjective Allergies: Coded Allergies: DOXYCYCLINE (Verified Allergy, Unknown, 07/21/15) Subjective afebrile Objective Vital Signs Last 24 Hour Vital Signs Date Time Temp Pulse Resp B/P (MAP) Pulse Ox O2 Delivery O2 Flow Rate FiO2 09/28/17 09:23 97.7 09/28/17 08:00 97.9 100 18 106/99 98 Room Air 97.9 09/28/17 04:00 97.7 85 18 143/92 99 Room Air 97.7 09/28/17 00:00 98.2 84 18 150/90 99 Room Air 98.2 09/27/17 20:00 99.0 84 21 135/93 99 Room Air 99.0 09/27/17 18:59 98.5 09/27/17 18:00 98.5 09/27/17 16:47 98.5 76 20 144/84 97 Room Air 98.5 09/27/17 12:33 98.2 09/27/17 12:09 98.2 70 20 157/92 98 Room Air 98.2 Height (Feet): 5 Height (Inches): 8.00 Weight (Pounds): 165 HEENT: atraumatic Respiratory/Chest: no respiratory distress Cardiovascular: no gallop/murmur Abdomen: no mass Laboratory Tests Test 09/28/17 07:40 White Blood Count 7.7 K/UL (4.8-10.8) Red Blood Count 4.80 M/UL (4.20-5.40) Hemoglobin 12.6 G/DL (12.0-16.0) Hematocrit 38.1 % (37.0-47.0) Mean Corpuscular Volume 79 FL (80-99) L Mean Corpuscular Hemoglobin 26.2 PG (27.0-31.0) L Mean Corpuscular Hemoglobin Concent 33.0 G/DL (32.0-36.0) Red Cell Distribution Width 12.9 % (11.6-14.8) Platelet Count 337 K/UL (150-450) Mean Platelet Volume 7.0 FL (6.5-10.1) Neutrophils (%) (Auto) 63.9 % (45.0-75.0) Lymphocytes (%) (Auto) 25.9 % (20.0-45.0) Monocytes (%) (Auto) 6.8 % (1.0-10.0) Eosinophils (%) (Auto) 2.2 % (0.0-3.0) Basophils (%) (Auto) 1.3 % (0.0-2.0) Erythrocyte Sedimentation Rate 70 MM/HR (0-30) H Sodium Level 140 MMOL/L (136-145) Potassium Level 4.6 MMOL/L (3.5-5.1) Chloride Level 108 MMOL/L (98-107) H Carbon Dioxide Level 27 MMOL/L (21-32) Anion Gap 5 mmol/L (5-15) Blood Urea Nitrogen 21 mg/dL (7-18) H Creatinine 1.3 MG/DL (0.55-1.30) Estimat Glomerular Filtration Rate 51.1 mL/min (>60) Glucose Level 93 MG/DL (74-106) Calcium Level 8.7 MG/DL (8.5-10.1) Phosphorus Level 4.3 MG/DL (2.5-4.9) Magnesium Level 1.6 MG/DL (1.8-2.4) L Total Bilirubin 0.2 MG/DL (0.2-1.0) Aspartate Amino Transf (AST/SGOT) 31 U/L (15-37) Alanine Aminotransferase (ALT/SGPT) 29 U/L (12-78) Alkaline Phosphatase 66 U/L (46-116) C-Reactive Protein, Quantitative 1.1 mg/dL (0.00-0.90) H Total Protein 7.3 G/DL (6.4-8.2) Albumin 2.5 G/DL (3.4-5.0) L Globulin 4.8 g/dL Albumin/Globulin Ratio 0.5 (1.0-2.7) L Current Medications Medications (Trade) Dose Ordered Sig/Ene Route PRN Reason Start Time Stop Time Status Last Admin Dose Admin Acetaminophen (Tylenol) 650 mg Q6H PRN ORAL Mild Pain/Temp > 100.5 09/21/17 23:00 10/21/17 22:59 Acetaminophen/ Hydrocodone Bitart ([place] 5/325) 1 tab Q4H PRN ORAL Moderate Pain (Pain Scale 4-6) 09/21/17 23:00 09/28/17 22:59 09/28/17 09:23 Apixaban (Eliquis) 5 mg BID ORAL 09/22/17 09:00 10/22/17 08:59 09/28/17 09:22 Aspirin (ASA) 81 mg DAILY ORAL 09/23/17 09:00 10/23/17 08:59 09/28/17 09:22 Atorvastatin Calcium (Lipitor) 10 mg BEDTIME ORAL 09/22/17 21:00 10/22/17 20:59 09/27/17 20:30 Docusate Sodium (Colace) 100 mg TID ORAL 09/22/17 18:00 10/22/17 17:59 09/28/17 09:22 Lansoprazole (Prevacid) 30 mg DAILY ORAL 09/22/17 16:30 10/22/17 16:29 09/28/17 09:23 Vancomycin HCl (Vanco rx to dose) 1 ea DAILY PRN MISC Per rx protocol 09/21/17 23:00 10/21/17 22:59 Vancomycin HCl 500 mg/Sodium Chloride 110 ml @ 110 mls/hr Q24H IV 09/22/17 15:00 10/02/17 14:59 09/27/17 14:55 KARTHIK BONNER M.D. Sep 28, 2017 10:15
--- NOTE | 2017-09-28 11:01 | Nephrology Progress Note ---
Assessment/Plan Problem List: (1) MARYAM on CKD (2) HTN (hypertension) Assessment Admitted for Cellulitis Acute renal failure Cr 2.6 on admit now lowering ( Was on HCTZ and Lasix) Cr 1.7 stable ? CKD underlying Proteinuria / HypoAlbuminemia HTN Plan Plan: stable- normal renal parameters 2D echo : Left ventricular ejection fraction estimated to be 70-75 %. Mild left ventricular hypertrophy by 2-D. per consultants [facility] No evidence of hydronephrosis or sonographically appreciable renal stones. Renal parenchymal echogenicity appears within normal limits. Bladder decompressed, limiting its evaluation. Subjective ROS Limited/Unobtainable: No Constitutional: Reports: malaise Objective Objective Last 24 Hour Vital Signs Date Time Temp Pulse Resp B/P (MAP) Pulse Ox O2 Delivery O2 Flow Rate FiO2 09/28/17 10:20 97.7 09/28/17 09:23 97.7 09/28/17 08:00 97.9 100 18 106/99 98 Room Air 97.9 09/28/17 04:00 97.7 85 18 143/92 99 Room Air 97.7 09/28/17 00:00 98.2 84 18 150/90 99 Room Air 98.2 09/27/17 20:00 99.0 84 21 135/93 99 Room Air 99.0 09/27/17 18:00 98.5 09/27/17 16:47 98.5 76 20 144/84 97 Room Air 98.5 09/27/17 12:33 98.2 09/27/17 12:09 98.2 70 20 157/92 98 Room Air 98.2 Intake and Output 09/27/17 09/28/17 19:00 07:00 Intake Total 400 ml 120 ml Balance 400 ml 120 ml Intake Oral 120 ml Other 400 ml # Voids 3 1 Laboratory Tests 09/28/17 07:40: White Blood Count 7.7, Red Blood Count 4.80, Hemoglobin 12.6, Hematocrit 38.1, Mean Corpuscular Volume 79L, Mean Corpuscular Hemoglobin 26.2L, Mean Corpuscular Hemoglobin Concent 33.0, Red Cell Distribution Width 12.9, Platelet Count 337, Mean Platelet Volume 7.0, Neutrophils (%) (Auto) 63.9, Lymphocytes (% ) (Auto) 25.9, Monocytes (%) (Auto) 6.8, Eosinophils (%) (Auto) 2.2, Basophils ( %) (Auto) 1.3, Erythrocyte Sedimentation Rate 70H, Sodium Level 140, Potassium Level 4.6, Chloride Level 108H, Carbon Dioxide Level 27, Anion Gap 5, Blood Urea Nitrogen 21H, Creatinine 1.3, Estimat Glomerular Filtration Rate 51.1, Glucose Level 93, Calcium Level 8.7, Phosphorus Level 4.3, Magnesium Level 1.6L , Total Bilirubin 0.2, Aspartate Amino Transf (AST/SGOT) 31, Alanine Aminotransferase (ALT/SGPT) 29, Alkaline Phosphatase 66, C-Reactive Protein, Quantitative 1.1H, Total Protein 7.3, Albumin 2.5L, Globulin 4.8, Albumin/ Globulin Ratio 0.5L Height (Feet): 5 Height (Inches): 8.00 Weight (Pounds): 165 General Appearance: no apparent distress Objective no change- Right lower extremity cellulitis , overall improved but an area of induration, extremely tender and some fluctuance is concerning for abscess Bl Leg: Doppler, no evidence of DVT on the right CARROLL PADILLA Sep 28, 2017 11:01
[2017-09-28 12:00] VITALS: BP 152/86
--- NOTE | 2017-09-28 13:09 | General Surgery Progress Note ---
General Surgery-Progress Note Subjective Symptoms: improved Additional Comments no acute events. pain and edema improved. Objective Last 24 Hour Vital Signs Date Time Temp Pulse Resp B/P (MAP) Pulse Ox O2 Delivery O2 Flow Rate FiO2 09/28/17 12:00 97.7 81 18 152/86 98 Room Air 97.7 09/28/17 10:20 97.7 09/28/17 09:23 97.7 09/28/17 08:00 97.9 100 18 106/99 98 Room Air 97.9 09/28/17 04:00 97.7 85 18 143/92 99 Room Air 97.7 09/28/17 00:00 98.2 84 18 150/90 99 Room Air 98.2 09/27/17 20:00 99.0 84 21 135/93 99 Room Air 99.0 09/27/17 18:00 98.5 09/27/17 16:47 98.5 76 20 144/84 97 Room Air 98.5 I&O Intake and Output 09/27/17 09/28/17 19:00 07:00 Intake Total 400 ml 120 ml Balance 400 ml 120 ml Intake Oral 120 ml Other 400 ml # Voids 3 1 Wound: clean, dry, intact Drains: none Cardiovascular: RSR Respiratory: clear Abdomen: soft, flat, non-tender, present bowel sounds Extremities: other - edema in right distal leg improved. no erythema. no warmth now. Laboratory Tests Test 09/28/17 07:40 White Blood Count 7.7 K/UL (4.8-10.8) Red Blood Count 4.80 M/UL (4.20-5.40) Hemoglobin 12.6 G/DL (12.0-16.0) Hematocrit 38.1 % (37.0-47.0) Mean Corpuscular Volume 79 FL (80-99) L Mean Corpuscular Hemoglobin 26.2 PG (27.0-31.0) L Mean Corpuscular Hemoglobin Concent 33.0 G/DL (32.0-36.0) Red Cell Distribution Width 12.9 % (11.6-14.8) Platelet Count 337 K/UL (150-450) Mean Platelet Volume 7.0 FL (6.5-10.1) Neutrophils (%) (Auto) 63.9 % (45.0-75.0) Lymphocytes (%) (Auto) 25.9 % (20.0-45.0) Monocytes (%) (Auto) 6.8 % (1.0-10.0) Eosinophils (%) (Auto) 2.2 % (0.0-3.0) Basophils (%) (Auto) 1.3 % (0.0-2.0) Erythrocyte Sedimentation Rate 70 MM/HR (0-30) H Sodium Level 140 MMOL/L (136-145) Potassium Level 4.6 MMOL/L (3.5-5.1) Chloride Level 108 MMOL/L (98-107) H Carbon Dioxide Level 27 MMOL/L (21-32) Anion Gap 5 mmol/L (5-15) Blood Urea Nitrogen 21 mg/dL (7-18) H Creatinine 1.3 MG/DL (0.55-1.30) Estimat Glomerular Filtration Rate 51.1 mL/min (>60) Glucose Level 93 MG/DL (74-106) Calcium Level 8.7 MG/DL (8.5-10.1) Phosphorus Level 4.3 MG/DL (2.5-4.9) Magnesium Level 1.6 MG/DL (1.8-2.4) L Total Bilirubin 0.2 MG/DL (0.2-1.0) Aspartate Amino Transf (AST/SGOT) 31 U/L (15-37) Alanine Aminotransferase (ALT/SGPT) 29 U/L (12-78) Alkaline Phosphatase 66 U/L (46-116) C-Reactive Protein, Quantitative 1.1 mg/dL (0.00-0.90) H Total Protein 7.3 G/DL (6.4-8.2) Albumin 2.5 G/DL (3.4-5.0) L Globulin 4.8 g/dL Albumin/Globulin Ratio 0.5 (1.0-2.7) L Plan Problems: (1) Cellulitis Assessment & Plan: 57 F with right lower extremity cellulitis possible abscess. Afebrile, HD stable, labs okay. on exam note tender/warm/edema on distal right anterior leg. no fluctuance noted but very tender/warm. will likely need I&D but would recommend ultrasound first to identify location/ tracking of infection. possibly without abscess and just cellulitis but unsure given exam limited due to pain. on exam cellulitis improving. ultrasound with only edema. no abscess -no surgical intervention necessary -cont Abx -will follow with recs. thank you for this consult. Toney Vo Sep 28, 2017 13:09
--- NOTE | 2017-09-28 15:04 | Pulmonology Progress Note ---
Assessment/Plan Problems: (1) Cellulitis (2) Depression (3) HTN (hypertension) (4) MARYAM on CKD Assessment/Plan iv abx on Vancomycin dc home with oral abx f/u renal parameters check electrolytes f/u ID recommendations. Subjective ROS Limited/Unobtainable: No Constitutional: Reports: no symptoms HEENT: Repors: no symptoms Allergies: Coded Allergies: DOXYCYCLINE (Verified Allergy, Unknown, 07/21/15) Objective Last 24 Hour Vital Signs Date Time Temp Pulse Resp B/P (MAP) Pulse Ox O2 Delivery O2 Flow Rate FiO2 09/28/17 13:15 97.7 09/28/17 12:00 97.7 81 18 152/86 98 Room Air 97.7 09/28/17 10:20 97.7 09/28/17 09:23 97.7 09/28/17 08:00 97.9 100 18 106/99 98 Room Air 97.9 09/28/17 04:00 97.7 85 18 143/92 99 Room Air 97.7 09/28/17 00:00 98.2 84 18 150/90 99 Room Air 98.2 09/27/17 20:00 99.0 84 21 135/93 99 Room Air 99.0 09/27/17 18:00 98.5 09/27/17 16:47 98.5 76 20 144/84 97 Room Air 98.5 Intake and Output 09/27/17 09/28/17 19:00 07:00 Intake Total 400 ml 120 ml Balance 400 ml 120 ml Intake Oral 120 ml Other 400 ml # Voids 3 1 Objective General Appearance: no apparent distress Head: normocephalic, atraumatic Eyes: bilateral eye PERRL, bilateral eye EOMI ENT: normal pharynx, no angioedema Neck: supple, thyroid normal Respiratory: lungs clear, normal breath sounds Cardiovascular #1: regular rate, rhythm Gastrointestinal: non tender, soft Ext. slightly warmth and redness at right calf Laboratory Tests 09/28/17 07:40: White Blood Count 7.7, Red Blood Count 4.80, Hemoglobin 12.6, Hematocrit 38.1, Mean Corpuscular Volume 79L, Mean Corpuscular Hemoglobin 26.2L, Mean Corpuscular Hemoglobin Concent 33.0, Red Cell Distribution Width 12.9, Platelet Count 337, Mean Platelet Volume 7.0, Neutrophils (%) (Auto) 63.9, Lymphocytes (% ) (Auto) 25.9, Monocytes (%) (Auto) 6.8, Eosinophils (%) (Auto) 2.2, Basophils ( %) (Auto) 1.3, Erythrocyte Sedimentation Rate 70H, Sodium Level 140, Potassium Level 4.6, Chloride Level 108H, Carbon Dioxide Level 27, Anion Gap 5, Blood Urea Nitrogen 21H, Creatinine 1.3, Estimat Glomerular Filtration Rate 51.1, Glucose Level 93, Calcium Level 8.7, Phosphorus Level 4.3, Magnesium Level 1.6L , Total Bilirubin 0.2, Aspartate Amino Transf (AST/SGOT) 31, Alanine Aminotransferase (ALT/SGPT) 29, Alkaline Phosphatase 66, C-Reactive Protein, Quantitative 1.1H, Total Protein 7.3, Albumin 2.5L, Globulin 4.8, Albumin/ Globulin Ratio 0.5L 09/28/17 14:10: Vancomycin Level Trough [Pending] Current Medications Medications (Trade) Dose Ordered Sig/Ene Route PRN Reason Start Time Stop Time Status Last Admin Dose Admin Acetaminophen (Tylenol) 650 mg Q6H PRN ORAL Mild Pain/Temp > 100.5 09/21/17 23:00 10/21/17 22:59 Acetaminophen/ Hydrocodone Bitart ([place] 5/325) 1 tab Q4H PRN ORAL Moderate Pain (Pain Scale 4-6) 09/21/17 23:00 09/28/17 22:59 09/28/17 13:15 Apixaban (Eliquis) 5 mg BID ORAL 09/22/17 09:00 10/22/17 08:59 09/28/17 09:22 Aspirin (ASA) 81 mg DAILY ORAL 09/23/17 09:00 10/23/17 08:59 09/28/17 09:22 Atorvastatin Calcium (Lipitor) 10 mg BEDTIME ORAL 09/22/17 21:00 10/22/17 20:59 09/27/17 20:30 Docusate Sodium (Colace) 100 mg TID ORAL 09/22/17 18:00 10/22/17 17:59 09/28/17 13:14 Lansoprazole (Prevacid) 30 mg DAILY ORAL 09/22/17 16:30 10/22/17 16:29 09/28/17 09:23 Vancomycin HCl (Vanco rx to dose) 1 ea DAILY PRN MISC Per rx protocol 09/21/17 23:00 10/21/17 22:59 Vancomycin HCl 500 mg/Sodium Chloride 110 ml @ 110 mls/hr Q24H IV 09/22/17 15:00 10/02/17 14:59 09/27/17 14:55 NEY LOVE Sep 28, 2017 15:04
[2017-09-28] MEDS: Vancomycin 500 MG in NS 110 ML IV SCH (15:16)
[2017-09-29] MEDS ORDERED: KEFLEX500 MG ORAL (13:25)
[2017-09-29] MEDS ORDERED: BACTRIM-DS1 EA ORAL (13:25)
--- NOTE | 2017-09-29 13:31 | Discharge Summary ---
Discharge Summary Hospital Course Date of Admission Sep 21, 2017 at 17:15 Date of Discharge Sep 28, 2017 at 17:45 Admitting Diagnosis LEFT LOWER LEG CELLULITIES HPI Veronica Lamas is a 57 year old female who was admitted on Sep 21, 2017 at 17:15 for Left Lower Leg Cellulitis Hospital Course dc summary #[id number] Discharge Medications New Medications: Cephalexin* (Keflex*) 500 Mg Capsule 500 MG ORAL EVERY 8 HOURS, #21 CAP 0 Refills Trimethoprim/Sulfamethoxazole (Bactrim Ds Tablet) 1 Each Tablet 1 TAB ORAL TWICE A DAY, #14 TAB Continued Medications: Apixaban (Eliquis) 5 Mg Tablet 5 MG PO, TAB Aspirin* (Aspirin*) 81 Mg Tab.chew 81 MG ORAL DAILY, TAB Atorvastatin Calcium* (Lipitor*) 10 Mg Tablet 10 MG ORAL BEDTIME, TAB Hydrocodone Bit/Acetaminophen 5-325* ([place] 5-325*) 1 Each Tablet 1 TAB ORAL Q4H PRN for For Pain, #14 TAB 0 Refills Omeprazole (Omeprazole) 20 Mg Capsule.dr 20 MG ORAL DAILY, #20 CAP Ondansetron Odt* (Zofran Odt*) 4 Mg Tab.rapdis 4 MG ORAL Q8H PRN for Nausea & Vomiting, #10 TAB 0 Refills Discontinued Medications: Furosemide* (Lasix*) 20 Mg Tablet 20 MG ORAL DAILY, TAB Hydrochlorothiazide* (Hydrochlorothiazide*) 25 Mg Tablet 25 MG ORAL DAILY, TAB Discharge Condition Upon Discharge: stable Discharge Disposition Patient was discharged to Home (01) Discharge Diagnoses: Discharge Instructions Discharge Instructions Special Instructions I have been assigned to complete a D/C Summary on this account. I was not involved in the patient management Michelle Valdes NP ([place]) Sep 29, 2017 13:30
--- NOTE | 2017-09-30 03:00 | Discharge Summary 2 SIG ---
DATE OF ADMISSION: 09/21/2017 DATE OF DISCHARGE: 09/28/2017 REASON FOR ADMISSION: 57 years old female with a history of hypertension, chronic kidney disease, DVT, and hyperlipidemia, presented to the emergency department with worsening leg swelling, redness, and pain. The patient reported worsening of symptoms for several weeks. She was recently hospitalized in another hospital and was getting intravenous antibiotics and was discharged on oral antibiotics, which she completed without improvement. She denied open wound or drainage. She was restarted on Eliquis recently due to the history of DVT after being off from it for some time. She denied trauma or fall. No fever. No chills. Workup in the emergency room revealed stable vital signs. Urinalysis was negative. Elevated creatinine. The patient was diagnosed with cellulitis, acute kidney injury on chronic kidney disease, hypertension, hyperlipidemia and was admitted for further management. HOSPITAL COURSE: The patient admitted. The patient was started on broad-spectrum antibiotics. Infectious Disease and Renal consults were requested. The patient was started on IV fluids. Blood cultures were negative. Lower extremities were elevated. Home medications were renewed , including Eliquis. Venous duplex revealed chronic thrombus to left lower extremity but no acute DVT. The right lower extremity with soft tissue injury, but no abscess. Surgeon followed the patient for possible abscess. Since ultrasound did not reveal any evidence of abscess, surgeon cleared the patient for discharge, no need for surgical intervention. Echocardiogram revealed preserved ejection fraction of 70% to 75%, right ventricular systolic pressure of 44, consistent with mild pulmonary hypertension. Renal ultrasound revealed no evidence of hydronephrosis or stones. [facility] closely followed. The patient at home was on Lasix and hydrochlorothiazide. Acute kidney injury was likely secondary to use of nephrotoxics. Both Lasix and hydrochlorothiazide were stopped and with IV hydration, and creatinine down to 1.3. The patient was stable for discharge home on oral antibiotics. Infectious Disease cleared patient for discharge on oral Bactrim and Keflex. Follow up with primary care provider next week. FINAL DIAGNOSES: 1. Cellulitis. 2. Acute kidney injury on chronic kidney disease. 3. Hypertension. 4. Hyperlipidemia. 5. Depression. DISCHARGE MEDICATIONS: See medication reconciliation list. DISCHARGE INSTRUCTIONS: The patient discharged home. Follow up with the primary care provider. Dariel Ramos M.D. I have been assigned to dictate discharge summary on this account and I was not involved in the patient's management. Michelle Zapatadaphney NWill DR: KARLA JOB#: [id number] CC: RYNE
== END 2017-09-28 17:45 | disposition home or self-care (01) | DRG 383 ==
LOC: EMR 14:34 → 4W 17:15 → EDBEDREQ 20:10 → 3E 09-27 11:55
DX: L03.115 Cellulitis of right lower limb (principal); N17.9 Acute kidney failure, unspecified; N18.3 Chronic kidney disease, stage 3 (moderate); E88.09 Other disorders of plasma-protein metabolism, not elsewhere classified; I82.512 Chronic embolism and thrombosis of left femoral vein; I12.9 Hypertensive chronic kidney disease with stage 1 through stage 4 chronic kidney disease, or unspecified chronic kidney disease; F32.9 Major depressive disorder, single episode, unspecified; E86.0 Dehydration; E78.5 Hyperlipidemia, unspecified; Z79.01 Long term (current) use of anticoagulants; Z79.82 Long term (current) use of aspirin
CPT/HCPCS: 36415; 76770; 80048; 80053; 80061; 80202; 81003; 83036; 83605; 83735; 83880; 84100; 84300; 84443; 84550; 85025; 85651; 86140; 86703; 87040; 89050; 93306; 93971; 99285

== ENCOUNTER 2017-09-30 23:37 | Inpatient (IN) | payer MEDICAID ==
[~2017-09-30] VITALS: Ht 172.7 cm; Wt 75.3 kg
[~2017-09-30 23:37] MED LIST changes: +ADALAT20 MG ORAL; +ASPIRIN81 MG ORAL; +BACTRIM-DS1 EA ORAL; +ELIQUIS5 MG PO; +HYDROCHLOROTHIA25 MG ORAL; +KEFLEX500 MG ORAL; +NITROGLYCERIN0.4 MG SL
[2017-10-01] VITALS (9 sets, daily range): BP systolic 140–165; BP diastolic 73–93
[2017-10-01 01:07] LABS: EOSINOPHILS % (AUTO) 0.9 % (0.0-3.0); HEMATOCRIT 38.1 % (37.0-47.0); HEMOGLOBIN 12.6 G/DL (12.0-16.0); LYMPHOCYTES % (AUTO) 10.7 % (20.0-45.0); MEAN CORPUSCULAR VOLUME 78 FL (80-99); MONOCYTES % (AUTO) 5.4 % (1.0-10.0); PLATELET COUNT 287 K/UL (150-450); RED BLOOD COUNT 4.85 M/UL (4.20-5.40); WHITE BLOOD COUNT 10.5 K/UL (4.8-10.8)
[2017-10-01 01:16] LABS: ANION GAP 10 mmol/L (5-15); BLOOD UREA NITROGEN 32 mg/dL (7-18); CALCIUM 9.3 MG/DL (8.5-10.1); CARBON DIOXIDE 24 MMOL/L (21-32); CHLORIDE 104 MMOL/L (98-107); CREATININE 2.1 MG/DL (0.55-1.30); POTASSIUM 4.6 MMOL/L (3.5-5.1); SODIUM 138 MMOL/L (136-145)
[2017-10-01 01:30] LABS: ALANINE AMINOTRANSFERASE 34 U/L (12-78); ALBUMIN 3.3 G/DL (3.4-5.0); ALBUMIN/GLOBULIN RATIO 0.6 (1.0-2.7); ALKALINE PHOSPHATASE 71 U/L (46-116); ASPARTATE AMINO TRANSFERASE 41 U/L (15-37); BILIRUBIN,TOTAL 0.3 MG/DL (0.2-1.0); CKMB 20.5 NG/ML (0.0-3.6); CREATINE KINASE 1065 U/L (26-308)
[2017-10-01] MEDS ORDERED: LORazepam Inj 2mg/ml 1ml IV ONE (01:45)
[2017-10-01] MEDS: Nitroglycerin Subl 0.4mg tab SL PRN ×2 (02:14→02:53)
[2017-10-01] MEDS ORDERED: Morphine Sulfate 4mg/ml Inj IVP ONE (03:00)
[2017-10-01] MEDS ORDERED: Norco 5mg/325mg tab ORAL PRN ×2 (07:00→09:00)
[2017-10-01] MEDS ORDERED: Nitroglycerin Subl 0.4mg tab SL PRN (07:30)
--- NOTE | 2017-10-01 07:51 | Emergency Room Report ---
History of Present Illness General Chief Complaint: Chest Pain Source: Patient Present Illness HPI Patient is a 57-year-old female who presented after increased chest pain. Patient gradual onset of symptoms. She reports having pain approximately 6 hours prior to arrival. Patient states she was recently treated for lower extremity cellulitis. Patient was noted to have a right lower extremity swelling which had improved with antibiotics. She had recently been treated with vancomycin as well as other antibiotics. She states she's had some prior history of DVT. She denies any fever. The pain was described as tight sensation. Allergies: Coded Allergies: DOXYCYCLINE (Verified Allergy, Unknown, 07/21/15) Patient History Past Medical History: see triage record Last Menstrual Period: na Now: No Reviewed Nursing Documentation: PMH: Agreed, PSxH: Agreed Nursing Documentation-PMH Past Medical History: No History, Except For Hx Cardiac Problems: Yes - high cholesterol Hx Hypertension: Yes Hx Pacemaker: No Hx Diabetes: No Hx Cancer: No Hx Gastrointestinal Problems: No Hx Neurological Problems: No Hx Seizures: No Review of Systems All Other Systems: negative except mentioned in HPI Physical Exam Vital Signs Date Time Temp Pulse Resp B/P (MAP) Pulse Ox O2 Delivery O2 Flow Rate FiO2 09/30/17 23:52 98.4 96 18 155/90 99 Room Air 98.4 Sp02 EP Interpretation: reviewed, normal General Appearance: normal inspection, well appearing, no apparent distress, alert, GCS 15 Head: atraumatic ENT: normal ENT inspection, hearing grossly normal, normal voice Neck: normal inspection, full range of motion, supple, no bony tend Respiratory: normal inspection, lungs clear, normal breath sounds, no respiratory distress, no retraction, no wheezing Cardiovascular #1: regular rate, rhythm, edema Gastrointestinal: normal inspection, normal bowel sounds, non tender, soft, no guarding, no hernia Genitourinary: no CVA tenderness Musculoskeletal: normal inspection, back normal, normal range of motion Neurologic: normal inspection, alert, oriented x3, responsive, 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 Differential diagnosis included but was not limited to acute coronary syndrome, pulmonary embolism, pneumonia, aortic dissection, shingles, pneumothorax, aortic dissection, esophageal rupture, pericarditis. Because of complexity of patient's case laboratory testing and imaging studies were ordered.The patient was given aspirin. I EKG interpreted by me showed normal sinus rhythm without acute ST or T wave changes. Patient was given nitroglycerin as well as Ativan. Initial troponin was noted to be 2. The patient's or drug screen was positive for methamphetamine.A repeat troponin was slightly lower. Dr. Sean Enriquez was contacted for inpatient management Labs Test 10/01/17 00:05 10/01/17 00:10 10/01/17 04:50 Urine Opiates Screen Negative (NEGATIVE) Urine Barbiturates Screen Negative (NEGATIVE) Phencyclidine (PCP) Screen Negative (NEGATIVE) Urine Amphetamines Screen Positive (NEGATIVE) Urine Benzodiazepines Screen Negative (NEGATIVE) Urine Cocaine Screen Negative (NEGATIVE) Urine Marijuana (THC) Screen Positive (NEGATIVE) White Blood Count 10.5 K/UL (4.8-10.8) Red Blood Count 4.85 M/UL (4.20-5.40) Hemoglobin 12.6 G/DL (12.0-16.0) Hematocrit 38.1 % (37.0-47.0) Mean Corpuscular Volume 78 FL (80-99) Mean Corpuscular Hemoglobin 25.9 PG (27.0-31.0) Mean Corpuscular Hemoglobin Concent 33.0 G/DL (32.0-36.0) Red Cell Distribution Width 13.0 % (11.6-14.8) Platelet Count 287 K/UL (150-450) Mean Platelet Volume 7.9 FL (6.5-10.1) Neutrophils (%) (Auto) 82.0 % (45.0-75.0) Lymphocytes (%) (Auto) 10.7 % (20.0-45.0) Monocytes (%) (Auto) 5.4 % (1.0-10.0) Eosinophils (%) (Auto) 0.9 % (0.0-3.0) Basophils (%) (Auto) 1.0 % (0.0-2.0) Sodium Level 138 MMOL/L (136-145) Potassium Level 4.6 MMOL/L (3.5-5.1) Chloride Level 104 MMOL/L (98-107) Carbon Dioxide Level 24 MMOL/L (21-32) Anion Gap 10 mmol/L (5-15) Blood Urea Nitrogen 32 mg/dL (7-18) Creatinine 2.1 MG/DL (0.55-1.30) Estimat Glomerular Filtration Rate 29.5 mL/min (>60) Glucose Level 104 MG/DL (74-106) Calcium Level 9.3 MG/DL (8.5-10.1) Total Bilirubin 0.3 MG/DL (0.2-1.0) Aspartate Amino Transf (AST/SGOT) 41 U/L (15-37) Alanine Aminotransferase (ALT/SGPT) 34 U/L (12-78) Alkaline Phosphatase 71 U/L (46-116) Total Creatine Kinase 1065 U/L (26-308) Creatine Kinase MB 20.5 NG/ML (0.0-3.6) Creatine Kinase MB Relative Index 1.9 Total Protein 8.6 G/DL (6.4-8.2) Albumin 3.3 G/DL (3.4-5.0) Globulin 5.3 g/dL Albumin/Globulin Ratio 0.6 (1.0-2.7) Troponin I 1.918 ng/mL (0.000-0.056) EKG Diagnostic Results Rate: normal Rhythm: NSR ST Segments: no acute changes Rhythm Strip Diag. Results EP Interpretation: yes Rhythm: NSR, no PVC's, no ectopy Last Vital Signs Date Time Temp Pulse Resp B/P (MAP) Pulse Ox O2 Delivery O2 Flow Rate FiO2 10/01/17 04:40 98.2 76 15 159/89 96 Room Air 98.2 Status: unchanged Disposition: ADMITTED INPATIENT Condition: Serious Referrals: [facility],REFERR[facility] (PCP) Jossue Avila Oct 01, 2017 07:51
--- NOTE | 2017-10-01 08:15 | Consultation ---
History of Present Illness General Date patient seen: Oct 01, 2017 Chief Complaint: Chest Pain Reason for Consultation: chest pain Present Illness HPI 57-year-old female with hx of HTN, DVT presented to ER with CC of chest pain. Patient gradual onset of symptoms. She reports having pain approximately 6 hours prior to arrival. Patient states she was recently treated for lower extremity cellulitis. Patient was noted to have a right lower extremity swelling which had improved with antibiotics. Allergies: Coded Allergies: DOXYCYCLINE (Verified Allergy, Unknown, 07/21/15) Medication History Scheduled Aspirin* (Aspirin*), 81 MG ORAL DAILY, (Reported) Atorvastatin Calcium* (Lipitor*), 10 MG ORAL BEDTIME, (Reported) Nifedipine (Nifedipine*), 30 MG ORAL DAILY, (Reported) Omeprazole (Omeprazole), 20 MG ORAL DAILY Trimethoprim/Sulfamethoxazole (Bactrim Ds Tablet), 1 TAB ORAL TWICE A DAY Scheduled PRN Hydrocodone Bit/Acetaminophen 5-325* (Ponemah 5-325*), 1 TAB ORAL Q4H PRN for For Pain Ondansetron Odt* (Zofran Odt*), 4 MG ORAL Q8H PRN for Nausea & Vomiting Miscellaneous Medications Apixaban (Eliquis), 5 MG PO, (Reported) Chlorothiazide (Chlorothiazide), Unknown Dose PO, (Reported) Nitroglycerin (Nitroglycerin), 0.4 MG SL, (Reported) Discontinued Medications Cephalexin* (Keflex*), 500 MG ORAL EVERY 8 HOURS Discontinued Reason: MD discontinued med Doxycycline Hyclate* (Vibramycin*), 100 MG ORAL EVERY 12 HOURS Discontinued Reason: MD discontinued med Furosemide* (Lasix*), 20 MG ORAL DAILY, (Reported) Discontinued Reason: MD discontinued med Hydrochlorothiazide* (Hydrochlorothiazide*), 25 MG ORAL DAILY, (Reported) Discontinued Reason: MD discontinued med Patient History Healthcare decision maker Resuscitation status Full Code Advanced Directive on File No Past Medical/Surgical History Past Medical/Surgical History: (1) Cellulitis (2) Depression Review of Systems Cardiovascular: Reports: chest pain Physical Exam General Appearance: WD/WN Lines, tubes and drains: peripheral HEENT: normocephalic, atraumatic Neck: non-tender, normal alignment Respiratory/Chest: chest wall non-tender, lungs clear Breasts: no masses Cardiovascular/Chest: normal peripheral pulses Abdomen: normal bowel sounds, non tender Genitourinary/Rectal: normal genital exam Extremities: normal range of motion Skin Exam: normal pigmentation 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 Lymphatic: anterior cervical Last 24 Hour Vital Signs Date Time Temp Pulse Resp B/P (MAP) Pulse Ox O2 Delivery O2 Flow Rate FiO2 10/01/17 04:40 98.2 76 15 159/89 96 Room Air 98.2 10/01/17 04:26 98.2 76 15 159/89 96 Room Air 98.2 10/01/17 03:40 98.5 10/01/17 03:30 98.5 78 14 159/81 98 Room Air 98.5 10/01/17 03:10 98.2 10/01/17 02:53 147/93 10/01/17 02:30 98.6 80 15 147/93 98 Room Air 98.6 10/01/17 02:14 165/87 10/01/17 01:30 98.2 75 16 165/87 99 Room Air 98.2 10/01/17 00:30 98.2 75 20 164/90 99 Room Air 98.2 09/30/17 23:58 96 22 Room Air 09/30/17 23:52 98.4 96 18 155/90 99 Room Air 98.4 Laboratory Tests Test 10/01/17 00:05 10/01/17 00:10 10/01/17 04:50 Urine Opiates Screen Negative (NEGATIVE) Urine Barbiturates Screen Negative (NEGATIVE) Phencyclidine (PCP) Screen Negative (NEGATIVE) Urine Amphetamines Screen Positive (NEGATIVE) H Urine Benzodiazepines Screen Negative (NEGATIVE) Urine Cocaine Screen Negative (NEGATIVE) Urine Marijuana (THC) Screen Positive (NEGATIVE) H White Blood Count 10.5 K/UL (4.8-10.8) Red Blood Count 4.85 M/UL (4.20-5.40) Hemoglobin 12.6 G/DL (12.0-16.0) Hematocrit 38.1 % (37.0-47.0) Mean Corpuscular Volume 78 FL (80-99) L Mean Corpuscular Hemoglobin 25.9 PG (27.0-31.0) L Mean Corpuscular Hemoglobin Concent 33.0 G/DL (32.0-36.0) Red Cell Distribution Width 13.0 % (11.6-14.8) Platelet Count 287 K/UL (150-450) Mean Platelet Volume 7.9 FL (6.5-10.1) Neutrophils (%) (Auto) 82.0 % (45.0-75.0) H Lymphocytes (%) (Auto) 10.7 % (20.0-45.0) L Monocytes (%) (Auto) 5.4 % (1.0-10.0) Eosinophils (%) (Auto) 0.9 % (0.0-3.0) Basophils (%) (Auto) 1.0 % (0.0-2.0) Sodium Level 138 MMOL/L (136-145) Potassium Level 4.6 MMOL/L (3.5-5.1) Chloride Level 104 MMOL/L (98-107) Carbon Dioxide Level 24 MMOL/L (21-32) Anion Gap 10 mmol/L (5-15) Blood Urea Nitrogen 32 mg/dL (7-18) H Creatinine 2.1 MG/DL (0.55-1.30) H Estimat Glomerular Filtration Rate 29.5 mL/min (>60) Glucose Level 104 MG/DL (74-106) Calcium Level 9.3 MG/DL (8.5-10.1) Total Bilirubin 0.3 MG/DL (0.2-1.0) Aspartate Amino Transf (AST/SGOT) 41 U/L (15-37) H Alanine Aminotransferase (ALT/SGPT) 34 U/L (12-78) Alkaline Phosphatase 71 U/L (46-116) Total Creatine Kinase 1065 U/L (26-308) H Creatine Kinase MB 20.5 NG/ML (0.0-3.6) H Creatine Kinase MB Relative Index 1.9 Troponin I 2.071 ng/mL (0.000-0.056) 1.918 ng/mL (0.000-0.056) Total Protein 8.6 G/DL (6.4-8.2) H Albumin 3.3 G/DL (3.4-5.0) L Globulin 5.3 g/dL Albumin/Globulin Ratio 0.6 (1.0-2.7) L Height (Feet): 5 Height (Inches): 8.00 Weight (Pounds): 166 Medications Current Medications Medications (Trade) Dose Ordered Sig/Ene Route PRN Reason Start Time Stop Time Status Last Admin Dose Admin Acetaminophen/ Hydrocodone Bitart (Ponemah 5/325) 1 tab Q4H PRN ORAL For Pain 10/01/17 07:00 10/08/17 06:59 UNV Apixaban (Eliquis) 5 mg BID ORAL 10/01/17 09:00 10/31/17 08:59 UNV Aspirin (ASA) 81 mg DAILY ORAL 10/01/17 09:00 10/31/17 08:59 Atorvastatin Calcium (Lipitor) 10 mg BEDTIME ORAL 10/01/17 21:00 10/31/17 20:59 Atorvastatin Calcium (Lipitor) 80 mg BEDTIME ORAL 10/01/17 21:00 10/31/17 20:59 Dextrose/Sodium Chloride 1,000 ml @ 60 mls/hr [id number] IV 10/01/17 09:00 10/31/17 08:59 Diltiazem HCl (Cardizem) 30 mg EVERY 8 HOURS ORAL 10/01/17 08:00 10/31/17 07:59 Heparin Sodium/ Dextrose 500 ml @ 18.071 mls/ hr adjust per protocol IV 10/01/17 07:15 10/31/17 07:14 UNV Morphine Sulfate (Morphine Sulfate) 2 mg Q4H PRN IVP For Pain 10/01/17 09:00 10/08/17 08:59 UNV Nitroglycerin (Ntg) 0.4 mg Q5M PRN SL chest pain 10/01/17 07:30 10/31/17 07:29 Ondansetron HCl (Zofran ODT) 4 mg Q8H PRN ORAL Nausea & Vomiting 10/01/17 07:00 10/31/17 06:59 Trimethoprim/ Sulfamethoxazole (Bactrim-DS) 1 tab Q12HR ORAL 10/01/17 09:00 10/08/17 08:59 Assessment/Plan Problem List: (1) Non-ST elevated myocardial infarction ICD Codes: I21.4 - Non-ST elevation (NSTEMI) myocardial infarction SNOMED: 165012219 (2) Chest pain ICD Codes: R07.9 - Chest pain, unspecified SNOMED: 78037485 (3) HTN (hypertension) ICD Codes: I10 - Essential (primary) hypertension SNOMED: 07405079 Assessment/Plan serial ekg, torponin cardio to see venous doppler of legs NEY LOVE Oct 01, 2017 08:15
--- NOTE | 2017-10-01 08:15 | General Progress Note ---
Progress Note Progress Note [id number] full consult dictated [facility] Oct 01, 2017 08:15
[2017-10-01 08:38] LABS: BASOPHILS % (AUTO) 1.1 % (0.0-2.0); HEMATOCRIT 37.2 % (37.0-47.0); HEMOGLOBIN 12.4 G/DL (12.0-16.0); LYMPHOCYTES % (AUTO) 13.2 % (20.0-45.0); MEAN CORPUSCULAR VOLUME 79 FL (80-99); MONOCYTES % (AUTO) 6.2 % (1.0-10.0); NEUTROPHILS % (AUTO) 76.6 % (45.0-75.0); PLATELET COUNT 278 K/UL (150-450); RED CELL DISTRIBUTION WIDTH 12.9 % (11.6-14.8); WHITE BLOOD COUNT 7.8 K/UL (4.8-10.8)
[2017-10-01] MEDS: dilTIAZem HCl 30mg tab ORAL SCH ×3 (08:58→21:13)
[2017-10-01] MEDS ORDERED: Bactrim-DS 1 tab ORAL SCH (09:00)
[2017-10-01] MEDS ORDERED: Aspirin Baby 81mg ORAL SCH (09:00)
[2017-10-01] MEDS ORDERED: D5 1/2NS 1,000 ML IV SCH (09:00)
[2017-10-01] MEDS ORDERED: Eliquis 2.5mg tablet ORAL SCH (09:00)
[2017-10-01] MEDS ORDERED: Morphine Sulfate 2mg/ml Inj IVP PRN ×2 (09:00)
[2017-10-01 09:13] LABS: ALANINE AMINOTRANSFERASE 32 U/L (12-78); ALBUMIN/GLOBULIN RATIO 0.6 (1.0-2.7); ALKALINE PHOSPHATASE 65 U/L (46-116); ANION GAP 9 mmol/L (5-15); ASPARTATE AMINO TRANSFERASE 36 U/L (15-37); BILIRUBIN,TOTAL 0.3 MG/DL (0.2-1.0); BLOOD UREA NITROGEN 28 mg/dL (7-18); CALCIUM 9.2 MG/DL (8.5-10.1); CARBON DIOXIDE 25 MMOL/L (21-32); CHLORIDE 105 MMOL/L (98-107); CREATININE 1.9 MG/DL (0.55-1.30); POTASSIUM 4.1 MMOL/L (3.5-5.1); SODIUM 139 MMOL/L (136-145)
[2017-10-01 09:16] LABS: CREATINE KINASE 812 U/L (26-308)
--- NOTE | 2017-10-01 09:28 | Cardiology Progress Note ---
Assessment/Plan Assessment/Plan The patient is seen and examined, full consult note will be dictated shortly. Objective Last 24 Hour Vital Signs Date Time Temp Pulse Resp B/P (MAP) Pulse Ox O2 Delivery O2 Flow Rate FiO2 10/01/17 08:58 81 157/86 10/01/17 04:40 98.2 76 15 159/89 96 Room Air 98.2 10/01/17 04:26 98.2 76 15 159/89 96 Room Air 98.2 10/01/17 03:40 98.5 10/01/17 03:30 98.5 78 14 159/81 98 Room Air 98.5 10/01/17 03:10 98.2 10/01/17 02:53 147/93 10/01/17 02:30 98.6 80 15 147/93 98 Room Air 98.6 10/01/17 02:14 165/87 10/01/17 01:30 98.2 75 16 165/87 99 Room Air 98.2 10/01/17 00:30 98.2 75 20 164/90 99 Room Air 98.2 09/30/17 23:58 96 22 Room Air 09/30/17 23:52 98.4 96 18 155/90 99 Room Air 98.4 Laboratory Tests Test 10/01/17 00:05 10/01/17 00:10 10/01/17 04:50 10/01/17 07:15 Urine Opiates Screen Negative (NEGATIVE) Urine Barbiturates Screen Negative (NEGATIVE) Phencyclidine (PCP) Screen Negative (NEGATIVE) Urine Amphetamines Screen Positive (NEGATIVE) H Urine Benzodiazepines Screen Negative (NEGATIVE) Urine Cocaine Screen Negative (NEGATIVE) Urine Marijuana (THC) Screen Positive (NEGATIVE) H White Blood Count 10.5 K/UL (4.8-10.8) 7.8 K/UL (4.8-10.8) Red Blood Count 4.85 M/UL (4.20-5.40) 4.70 M/UL (4.20-5.40) Hemoglobin 12.6 G/DL (12.0-16.0) 12.4 G/DL (12.0-16.0) Hematocrit 38.1 % (37.0-47.0) 37.2 % (37.0-47.0) Mean Corpuscular Volume 78 FL (80-99) L 79 FL (80-99) L Mean Corpuscular Hemoglobin 25.9 PG (27.0-31.0) L 26.3 PG (27.0-31.0) L Mean Corpuscular Hemoglobin Concent 33.0 G/DL (32.0-36.0) 33.2 G/DL (32.0-36.0) Red Cell Distribution Width 13.0 % (11.6-14.8) 12.9 % (11.6-14.8) Platelet Count 287 K/UL (150-450) 278 K/UL (150-450) Mean Platelet Volume 7.9 FL (6.5-10.1) 7.3 FL (6.5-10.1) Neutrophils (%) (Auto) 82.0 % (45.0-75.0) H 76.6 % (45.0-75.0) H Lymphocytes (%) (Auto) 10.7 % (20.0-45.0) L 13.2 % (20.0-45.0) L Monocytes (%) (Auto) 5.4 % (1.0-10.0) 6.2 % (1.0-10.0) Eosinophils (%) (Auto) 0.9 % (0.0-3.0) 3.0 % (0.0-3.0) Basophils (%) (Auto) 1.0 % (0.0-2.0) 1.1 % (0.0-2.0) Sodium Level 138 MMOL/L (136-145) Pending Potassium Level 4.6 MMOL/L (3.5-5.1) Pending Chloride Level 104 MMOL/L (98-107) Pending Carbon Dioxide Level 24 MMOL/L (21-32) Pending Anion Gap 10 mmol/L (5-15) 9 mmol/L (5-15) Blood Urea Nitrogen 32 mg/dL (7-18) H Pending Creatinine 2.1 MG/DL (0.55-1.30) H Pending Estimat Glomerular Filtration Rate 29.5 mL/min (>60) Pending Glucose Level 104 MG/DL (74-106) Pending Calcium Level 9.3 MG/DL (8.5-10.1) Pending Total Bilirubin 0.3 MG/DL (0.2-1.0) 0.3 MG/DL (0.2-1.0) Aspartate Amino Transf (AST/SGOT) 41 U/L (15-37) H 36 U/L (15-37) Alanine Aminotransferase (ALT/SGPT) 34 U/L (12-78) 32 U/L (12-78) Alkaline Phosphatase 71 U/L (46-116) 65 U/L (46-116) Total Creatine Kinase 1065 U/L (26-308) H 812 U/L (26-308) H Creatine Kinase MB 20.5 NG/ML (0.0-3.6) H Creatine Kinase MB Relative Index 1.9 Troponin I 2.071 ng/mL (0.000-0.056) 1.918 ng/mL (0.000-0.056) 1.811 ng/mL (0.000-0.056) Total Protein 8.6 G/DL (6.4-8.2) H 8.1 G/DL (6.4-8.2) Albumin 3.3 G/DL (3.4-5.0) L 3.0 G/DL (3.4-5.0) L Globulin 5.3 g/dL 5.1 g/dL Albumin/Globulin Ratio 0.6 (1.0-2.7) L 0.6 (1.0-2.7) L Uric Acid 6.1 MG/DL (2.6-7.2) SVETLANA VICTORIA Oct 01, 2017 09:28
[2017-10-01] MEDS ORDERED: Nitroglycerin Patch 0.1mg TDERMAL SCH (10:00)
[2017-10-01] MEDS ORDERED: Heparin 25,000u/D5W 500ml 500 ML IV SCH ×2 (10:30→18:15)
--- NOTE | 2017-10-01 11:05 | Diagnostic Imaging Report ---
Indication: Reason For Exam: SOB Technique: One view of the chest Comparison: 08/23/2014 Findings: The lungs and pleural spaces are clear. Heart size is normal. The aorta is somewhat ectatic. The upper mediastinum is unremarkable Impression: Negative
--- NOTE | 2017-10-01 12:31 | Diagnostic Imaging Report ---
Indication: Abnormal renal function tests and right flank pain Technique: Grayscale and duplex images of the kidneys, retroperitoneum, and bladder Comparison: 09/22/2017 Findings: Right kidney measures 9.7 cm length. The left kidney measures 9.3 cm in length. No hydronephrosis no focal abnormality. Bilateral ureteral jets are demonstrated. Prevoid bladder volume is 713 mL. Postvoid bladder volume is 15 mL. Findings are overall unchanged Impression: Negative for hydronephrosis Distended prevoid bladder. Postvoid bladder volume 15 mL
[2017-10-01 14:10] LABS: APPEARANCE,URINE CLEAR; BILIRUBIN, URINE NEGATIVE (NEGATIVE); COLOR,URINE PALE YELLOW; GLUCOSE, URINE (UA) NEGATIVE (NEGATIVE); KETONES,URINE NEGATIVE (NEGATIVE); LEUKOCYTE ESTERASE ,URINE NEGATIVE (NEGATIVE); NITRITE,URINE NEGATIVE (NEGATIVE); PH,URINE 7 (4.5-8.0); PROTEIN,URINE 3+ (NEGATIVE); UROBILINOGEN,URINE NORMAL MG/DL (0.0-1.0)
--- NOTE | 2017-10-01 14:58 | Cardiology Report ---
APPROVED REPORT EXAM: Two-dimensional and M-mode echocardiogram with Doppler and color Doppler. INDICATION Left ventricular function M-Mode DIMENSIONS IVSd1.2 (0.7-1.1cm)Left Atrium (MM)3.3 (1.6-4.0cm) LVDd4.6 (3.5-5.6cm)Aortic Root2.7 (2.0-3.7cm) PWd1.0 (0.7-1.1cm)Aortic Cusp Exc.1.8 (1.5-2.0cm) LVDs2.2 (2.5-4.0cm) PWs1.6 cm Left ventricular chamber size, systolic function and wall motion. Left ventricular ejection fraction estimated to be 60-65%. No evidence of left ventricular hypertrophy. Moderate pericardial or pleural effusion. All other cardiac chamber sizes are within normal limits. Focal aortic valve sclerosis with adequate cusp excursion. Thickened mitral valve leaflets with normal excursion. Mild mitral annulus and aortic root calcification. Pulmonic valve is well visualized. Normal tricuspid valve structure. IVC is normal in size and collapsible with respiration. A color flow and spectral Doppler study was performed and revealed: No aortic regurgitation. Trace mitral regurgitation. Mitral diastolic velocities suggest reduced left ventricular relaxation c/w diastolic dysfunction grade 1. Trace tricuspid regurgitation. Pulmonic regurgitation present.
--- NOTE | 2017-10-01 15:46 | Consultation ---
Consult Note Consult Note ID DIC # [id number] KARTHIK BONNER M.D. Oct 01, 2017 15:45
[2017-10-01] MEDS ORDERED: Vancomycin 1gm/D5W 275ml IVPB SCH ×2 (18:00)
[2017-10-01] MEDS ORDERED: Heparin 5000 units/ml inj IV ONE (18:15)
[2017-10-01] MEDS ORDERED: Atorvastatin 80mg tab ORAL SCH (21:00)
[2017-10-02] VITALS: BP 146/72
--- NOTE | 2017-10-02 00:15 | History and Physical Report ---
DATE OF ADMISSION: 10/01/2017 TIME: 3 p.m. CONSULTANTS: 1. Troy Donahue M.D. 2. Audie Tovar M.D. 3. Marly Ashley M.D. 4. Angel Monge M.D. CHIEF COMPLAINT: Right leg cellulitis, edema, and NSTEMI with elevated troponin. BRIEF HISTORY: This is a 57-year-old female, who lives at home, presents with a right leg increased swelling and pain, has slight chest pain. No loss of consciousness. No shortness of breath. Came to [place] [facility], diagnosed with NSTEMI, right leg cellulitis and admitted to [facility] for further care. Currently, calm in bed, oriented x3, no acute distress. REVIEW OF SYSTEMS: Slight chest pain. Slight short of breath. No nausea, vomiting, or diarrhea. PAST MEDICAL HISTORY: Hypertension and possible DVT in the left leg. PAST SURGICAL HISTORY: Left elbow. MEDICATIONS: Lipitor, heparin, nitroglycerin, IV fluid, aspirin, Bactrim, morphine, and diltiazem. ALLERGIES: Doxycycline. SOCIAL HISTORY: Positive smoking. Occasional alcohol. No intravenous drug abuse. FAMILY HISTORY: Noncontributory. PHYSICAL EXAMINATION: GENERAL: Calm in bed, oriented x3, no acute distress. VITAL SIGNS: Temperature is 97 degrees, pulse 79, respirations 20, and blood pressure 140/79. CARDIOVASCULAR: No murmur. LUNGS: Poor air exchange. ABDOMEN: Bowel sounds distant. EXTREMITIES: No cyanosis or clubbing. There is 1+ edema. Slightly red and warm to the touch the right leg. NEUROLOGIC: The patient moves all extremities, but slightly weak. LABORATORY AND DIAGNOSTIC DATA: CBC is normal. BMP show BUN and creatinine 20 and 1.9. Otherwise, BMP is normal. Troponin 1.811. Albumin 3.0. PTT is 34. Urine toxicology positive for amphetamine and marijuana. Urinalysis show 3+ protein. ASSESSMENT: 1. Right leg cellulitis, edema. 2. Non-ST elevation myocardial infarction with elevated troponin. 3. Hypertension. 4. . 5. History of deep vein thrombosis of right leg. 6. Drug abuse. PLAN: Continue premedications. Dr. Donahue, Dr. Tovar, Dr. Ashley, Dr. Monge to consult. Troponin q.8 h. x3. Pain control. Anticoagulate. OT/PT. CBC and BMP in morning. Pending transfer for possible catheterization as per Cardiology, we will continue to follow this patient medically. Sean Enriquez D.O. DR: JUSTA JOB#: [id number] CC:
--- NOTE | 2017-10-02 01:30 | Consultation ---
DATE OF CONSULTATION: 10/01/2017 INFECTIOUS DISEASE CONSULTATION CONSULTING PHYSICIAN: Audie Tovar M.D REFERRING PHYSICIAN: Sean Enriquez D.O. REASON FOR CONSULT: Evaluation of patient for lower extremity cellulitis. HISTORY OF PRESENT ILLNESS: The patient is a 57-year-old female, who was admitted to this medical center for chest pain. The patient was recently admitted to this medical center for right lower extremity cellulitis and was placed on IV vancomycin. Infectious Disease consultation has been requested for further followup of the patient regarding right lower extremity cellulitis. PAST MEDICAL HISTORY: 1. History of right lower extremity cellulitis. 2. History of hypertension. 3. Hyperlipidemia. 4. CKD. 5. History DVT. ALLERGIES: Doxycycline. FAMILY HISTORY: Not contributing. REVIEW OF SYSTEMS: A 10-point review was done and except what is mentioned has been negative. MEDICATIONS: Bactrim. PHYSICAL EXAMINATION: VITAL SIGNS: Temperature 97.3, blood pressure 140/79, pulse 86, and respiratory rate 18. HEENT: No pale conjunctivae. No icterus. NECK: No lymphadenopathy. CHEST: Clear. HEART: S1 and S2. ABDOMEN: Soft and nontender. EXTREMITIES: The patient has right lower extremity cellulitis that overall has improved. No abscess. NEUROLOGIC: Awake and alert. LABORATORY AND DIAGNOSTIC DATA: White blood cells 7.8, hemoglobin 12, platelets 278. UA unremarkable. BUN 28 and creatinine 1.9. ASSESSMENT: The patient is a 57-year-old female with, 1. Right lower extremity cellulitis. 2. Non-ST segment elevation myocardial infarction/chest pain. PLAN: 1. We will continue the patient on IV vancomycin. If the creatinine increases, we may switch to Zyvox or daptomycin. 2. Monitor CBC. 3. Monitor BMP. 4. We will follow Cardiology recommendations. 5. Monitor chest x-ray. 6. Based on the patient's clinical course and labs, we will do further recommendation. Thank you, Dr. Enriquez, for allowing me to participate in the care of this patient. I will follow the patient with you during this hospitalization. Audie Tovar M.D. DR: SUZANNE JOB#: [id number] CC:
[2017-10-02] MEDS ORDERED: Tubing IV Secondary IV ONE (02:28)
[2017-10-02] MEDS ORDERED: Heparin 25,000u/D5W 500ml 500 ML IV SCH (03:15)
--- NOTE | 2017-10-02 06:15 | Consultation ---
DATE OF CONSULTATION: 10/01/2017 HEMATOLOGY ONCOLOGY CONSULTATION REFERRING PHYSICIAN: Sean Enriquez D.O. REASON FOR CONSULTATION: Evaluation of lower extremity DVT. IDENTIFICATION: Dear Dr. Sean Enriquez, The patient is a pleasant 57-year-old female who I have seen in the past. Past medical history is significant for hypertension and DVT, at this time presents with chest pain to the ER, gradual onset, approximately six hours prior to arrival, has been treated for cellulitis, was admitted to [facility] and given at that time antibiotics. Hematology Service consulted for further evaluation and underlying treatment of her underlying disorder. The patient has a history of DVT, has been on Eliquis. PAST MEDICAL HISTORY: DVT and hypertension. ALLERGIES: Doxycycline. MEDICATIONS: Aspirin, Lipitor, Nifedipine, omeprazole, Bactrim, Eliquis. PAST SURGICAL HISTORY: None noted. REVIEW OF SYSTEMS: CONSTITUTIONAL: No fevers, chills, night sweats. SKIN: No rashes, bumps, or itching. HEENT: No headache, hearing or vision changes. BREASTS: No lumps, pain, or discharge. PULMONARY: No cough, sputum, or shortness of breath. GASTROINTESTINAL: No nausea, vomiting, or diarrhea. GENITOURINARY: No dysuria, frequency, or urgency. MUSCULOSKELETAL: No joint swelling, muscle pain, or trauma. PHYSICAL EXAMINATION: VITAL SIGNS: Reviewed. GENERAL: No acute distress. PULMONARY: Decreased breath sounds. CARDIOVASCULAR: Regular rate. No S3 or S4. ABDOMEN: Soft, nontender, and nondistended. EXTREMITIES: Cellulitis of the lower extremity is noted specifically. Right lower extremity cellulitis, however, has improved. LABORATORY DATA: WBC 7.8, hemoglobin 12.1, hematocrit 37.9, platelets 278,000. ASSESSMENT AND RECOMMENDATION: 1. DVT of the lower extremity, this was diagnosed on prior admission. 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 Currently is on anticoagulation, who was in the past on Eliquis. We initially began heparin drip for NSTEMI. Continue at this time. Begin back on Eliquis once Cardiology evaluates the patient. Currently continue heparin drip. 2. Coagulopathy due to underlying heparin drip. Continue to closely monitor on above treatment. 3. Acute kidney injury and chronic kidney disease. 4. NSTEMI. Currently continue management per Cardiology Service. 5. Hypoalbuminemia, likely due to decreased p.o. intake. The patient to be transferred to [facility] for further evaluation and care under the care of Dr. Donahue. Angel Monge M.D. DR: Meet JOB#: [id number] CC:
--- NOTE | 2017-10-02 09:30 | Consultation ---
DATE OF CONSULTATION: 10/01/2017 CARDIOLOGY CONSULTATION CONSULTING PHYSICIAN: Troy Donahue M.D. REFERRING PHYSICIAN: Sean Enriquez D.O. REASON FOR CONSULTATION: Management of chest pain. HISTORY OF PRESENT ILLNESS: The patient is a very unfortunate 57-year-old female, who presents to the emergency department for treatment of acute onset of chest pain. The patient states that she was recently treated for lower extremity cellulitis in this facility with IV antibiotic, which improved the condition of the lower extremity cellulitis. Over the past few hours, she has been complaining of pressure-like chest pain, gradual onset, progressively worsening with no provoking symptoms. The patient decided to come to the hospital. At the time of arrival to the hospital, blood pressure was 155/90 mmHg and heart rate of 96. The patient gets admitted to [facility] for further evaluation and management of chest pain. The patient's cardiac risk factors for coronary artery disease including hypertension and hyperlipidemia. PAST SURGICAL HISTORY: None. ALLERGIES: Doxycycline. SOCIAL HISTORY: The patient denies any tobacco, alcohol, or illicit drug use. FAMILY HISTORY: No premature coronary artery disease in first-degree relatives. REVIEW OF SYSTEMS: HEENT: Denies any headache, diplopia, or blurred vision. CONSTITUTIONAL: Denies any fever, chills, night sweats, or weight loss. CARDIOVASCULAR: Complains of chest pain as mentioned above. Denies any shortness of breath, PND, orthopnea, leg swelling, or palpitation. PULMONARY: Denies any cough, hemoptysis, or wheezing. GASTROINTESTINAL: Denies any nausea, vomiting, diarrhea, constipation, abdominal pain, or GI bleed. GENITOURINARY: Denies any hematuria, dysuria, or incontinence. NEUROLOGIC: Denies any motor dysfunction, sensory deficit, or altered speech. MUSCULOSKELETAL: Complained of right lower extremity swelling, bilateral lower extremity cellulitis, and history of DVT. PHYSICAL EXAMINATION: VITAL SIGNS: Blood pressure was 155/90, respirations of 18, pulse of 96, temperature 98.2 degrees Fahrenheit, and O2 saturation 99% on room air. HEENT: Atraumatic and normocephalic. Anicteric. Pupils are equal, round, and reactive to light and accommodation. Extraocular muscles are intact. NECK: JVP is less than 5 cm. No carotid bruit. Carotid upstrokes 2+ bilaterally. CARDIOVASCULAR: Normal S1 and S2. Regular rate and rhythm. No murmurs, gallops, or rubs. PMI is at fourth intercostal space in the midclavicular line. LUNGS: Clear to auscultation bilaterally. ABDOMEN: Soft, nontender, and nondistended. No hepatosplenomegaly. Positive bowel sounds. EXTREMITIES: No evidence of edema, clubbing, or cyanosis. LABORATORY FINDINGS: WBC 10.5, hemoglobin 12.2, hematocrit 38.1, and platelet count 287. Chemistry shows sodium of 138, potassium is 4.6, chloride 104, bicarbonate 24, BUN 32, creatinine 2.1, glucose is 104, calcium is 9.3. Troponin I level still 2.07 and 1.9. PTT of 34. Toxicology is positive for amphetamines and marijuana. A chest x-ray showed no cardiopulmonary disease. Echocardiogram, an LVEF of 60% to 65%, moderate pericardial , grade 1 LV diastolic dysfunction. ASSESSMENT AND PLAN: The patient is a very unfortunate 57-year-old female seen in Cardiology consultation at the request of Dr. Enriquez: 1. Non-ST elevation myocardial infarction, although 12-lead electrocardiogram does not show any acute ischemic feature, however, troponin I has peaked to 2.38 and gradually shows downtrend. Upon my evaluation this morning, the patient has lingering of chest pain. Therefore, a nitroglycerin patch was ordered. The patient also is receiving a heparin drip until tomorrow. We will place a hold on Eliquis in the meantime. 2. History of deep venous thrombosis, on Eliquis therapy. Has been off Eliquis for two days. 3. Normal left ventricular systolic function with left ventricular ejection fraction of 60% to 65%. I would like to thank, Dr. Enriquez, for the courtesy of this consultation. Troy Donahue M.D. DR: Marisabel JOB#: [id number] CC:
--- NOTE | 2017-10-02 11:27 | Cardiology Report ---
APPROVED REPORT EKG Measurement Heart [id number] MT [id number] Normal sinus rhythm Normal ECG
--- NOTE | 2017-10-02 11:28 | Cardiology Report ---
APPROVED REPORT EKG Measurement Heart [id number] MT [id number] Normal sinus rhythm with sinus arrhythmia Normal ECG
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
--- NOTE | 2017-10-05 12:56 | Discharge Summary ---
Discharge Summary Hospital Course Date of Admission Oct 01, 2017 at 02:07 Date of Discharge Oct 02, 2017 at 02:29 Admitting Diagnosis NSTEMI HPI Veronica Lamas is a 57 year old female who was admitted on Oct 01, 2017 at 02:07 for Nstemi Hospital Course dc summary #[id number] Discharge Condition Upon Discharge: stable Discharge Disposition Patient was discharged to [facility] [place] for cardiac catheterization Discharge Diagnoses: Discharge Instructions Discharge Instructions Special Instructions I have been assigned to complete a D/C Summary on this account. I was not involved in the patient management Michelle Valdes NP (Vanchtein) Oct 05, 2017 12:56
--- NOTE | 2017-10-06 01:00 | Discharge Summary 2 SIG ---
DATE OF ADMISSION: 10/01/2017 DATE OF DISCHARGE: 10/02/2017 REASON FOR ADMISSION: 57-year-old female with history of hypertension, hyperlipidemia, and DVT, presented to the emergency department with chest pain. Chest pain started about six hours prior to arrival. Upon evaluation, she denied fever. She reported tight sensation in her chest. Pulse oximetry was stable on the room air. Urine toxicology screen was positive for marijuana and amphetamine. WBC -10.5, stable hemoglobin and hematocrit. BUN -32 and creatinine- 2.1. Troponin -2.071. Total CK- 1065 and CK-MB -20.5. EKG showed normal sinus rhythm, no acute ischemic changes. The patient admitted with elevated troponin, possibly non-STEMI, history of DVT, and acute renal failure. HOSPITAL COURSE: The patient admitted to [facility]. Cardiology, Nephrology, Infectious Diseases, and Pulmonology consults were requested. Serial troponin initially showed trend down and then on 10/01/2017 troponin started to picker feeder gain, the highest -2.365. The patient was on the heparin drip. Silviculture Forester clsoely followed. the patient. Echocardiogram revealed preserved ejection fraction of 50% to 55% and no evidence of left ventricular hypertrophy. Per wire communications engineer , the patient have non-ST elevated PA. The patient was on heparin drip. Eliquis was placed on hold. Blood pressure remained stable. Statin was continued. Account Executive Key Accounts seen and evaluated the patient and per mother repairer, the patient had acute renal failure likely superimposed on chronic kidney disease. Renal ultrasound revealed no evidence of hydronephrosis. Renal parameters and electrolytes were closely monitored. Nephrotoxic were avoided. Blood pressure remained stable. Supplemental oxygen and pulmonary toilet were on the board as needed to keep pulse oximetry above 92%. Pulse oximetry was stable on the room air. Infectious Diseases doctor seen the patient for right lower extremity cellulitis. The patient was started on empiric antibiotics. The patient was afebrile. No leukocytosis. Per Cardiology, the patient needed a cardiac catheterization. Transfer was arranged to [facility] [place] for cardiac catheterization. The patient was discharged via [facility]. FINAL DIAGNOSES: 1. Non-ST elevation myocardial infarction. 2. History of deep venous thrombosis. 3. Acute renal failure on chronic kidney disease. 4. Hypertension. 5. Right lower extremity cellulitis. DISCHARGE MEDICATIONS: List of medication was sent to the accepting facility. DISCHARGE INSTRUCTIONS: The patient was transferred via [facility] to [facility] [place] for cardiac catheterization. Sean Enriquez D.O. I have been assigned to dictate discharge summary on this account and I was not involved in the patient's management. Michelle Valdes (Vanchtein) NAdrianPAdrian DR: Sancho JOB#: [id number] CC: RYNE
== END 2017-10-02 02:29 | disposition short-term general hospital (02) | DRG 190 ==
LOC: EMR 10-01 00:25 → 2W 10-01 02:07 → EDBEDREQ 10-01 03:44 → 2W 10-01 07:56
DX: I21.4 Non-ST elevation (NSTEMI) myocardial infarction (principal); N17.9 Acute kidney failure, unspecified; D68.9 Coagulation defect, unspecified; L03.115 Cellulitis of right lower limb; E88.09 Other disorders of plasma-protein metabolism, not elsewhere classified; I12.9 Hypertensive chronic kidney disease with stage 1 through stage 4 chronic kidney disease, or unspecified chronic kidney disease; Z88.1 Allergy status to other antibiotic agents; Z86.718 Personal history of other venous thrombosis and embolism; F15.10 Other stimulant abuse, uncomplicated; E78.5 Hyperlipidemia, unspecified; N18.9 Chronic kidney disease, unspecified; Z79.01 Long term (current) use of anticoagulants
CPT/HCPCS: 36415; 71045; 76770; 80053; 80307; 81001; 82043; 82044; 82550; 82553; 82570; 84133; 84300; 84484; 84550; 85025; 85730; 87081; 89050; 93005; 93306; 99285

== ENCOUNTER 2017-10-28 02:10 | Emergency (ER) | payer MEDICAID ==
[~2017-10-28] VITALS: Ht 172.7 cm; Wt 76.7 kg
[2017-10-28 02:25] VITALS: BP 126/72
[2017-10-28] MEDS ORDERED: Albuterol ud Inhalation HHN ONE (02:30)
[2017-10-28] MEDS ORDERED: Levofloxacin 500mg tab ORAL ONE (03:00)
[2017-10-28] MEDS ORDERED: ALBUTEROL SULF8.5 GM INH (03:03)
[2017-10-28] MEDS ORDERED: AZITHROMYCIN250 MG ORAL (03:03)
--- NOTE | 2017-10-28 03:03 | Emergency Room Report ---
History of Present Illness General Chief Complaint: Flu Like Symptoms Source: Patient Present Illness [facility] This is a 57-year-old female with history of high blood pressure. She presents with a cough productive of sputum. Onset yesterday. No fever chills. No nausea no vomiting. No chest pain. No edema. Worse with inspiration. Mild runny nose. Allergies: Coded Allergies: DOXYCYCLINE (Verified Allergy, Unknown, 07/21/15) Patient History Past Medical History: HTN, CAD Past Surgical History: other Pertinent Family History: none Social History: Denies: smoking Last Menstrual Period: none Now: No Immunizations: other Reviewed Nursing Documentation: PMH: Agreed; PSxH: Agreed Nursing Documentation-PMH Hx Cardiac Problems: Yes - high cholesterol, angio-seal procedure 2018 Hx Hypertension: Yes Hx Pacemaker: No Hx Diabetes: No Hx Cancer: No Hx Gastrointestinal Problems: No Hx Neurological Problems: No Hx Seizures: No Review of Systems Eye: Denies: eye pain, blurred vision ENT: Denies: ear pain, nose congestion, throat swelling Respiratory: Reports: cough; Denies: shortness of breath Cardiovascular: Denies: chest pain, palpitations Gastrointestinal: Denies: abdominal pain, diarrhea, nausea, vomiting Musculoskeletal: Denies: back pain, joint pain Skin: Denies: rash Neurological: Denies: headache, numbness Endocrine: Denies: increased thirst, increased urine Hematologic/Lymphatic: Denies: easy bruising All Other Systems: negative except mentioned in HPI Physical Exam Vital Signs Date Time Temp Pulse Resp B/P (MAP) Pulse Ox O2 Delivery O2 Flow Rate FiO2 10/28/17 02:12 98.2 107 18 126/72 98 Room Air 98.2 vitals with tachycardia Sp02 EP Interpretation: reviewed, normal General Appearance: well appearing, no apparent distress, alert Head: normocephalic, atraumatic Eyes: bilateral eye PERRL, bilateral eye EOMI ENT: hearing grossly normal, normal pharynx Neck: full range of motion, supple, no meningismus Respiratory: chest non-tender, crackles, rhonchi, wheezing Cardiovascular #1: regular rate, rhythm, no murmur Gastrointestinal: normal bowel sounds, non tender, no mass, no organomegaly, no bruit, non-distended Musculoskeletal: back normal, gait/station normal, normal range of motion Psychiatric: mood/affect normal Skin: warm/dry Medical Decision Making Diagnostic Impression: Primary Impression: CAP (community acquired pneumonia) Qualified Codes: J18.1 - Lobar pneumonia, unspecified organism ER Course Patient with community acquired pneumonia. No evidence of any sepsis. Better after breathing treatment. Dose of antibiotics given here. We'll discharge home. No evidence of ACS, PE, dissection to name a few. Chest X-Ray Diagnostic Results Chest X-Ray Diagnostic Results : Chest X-Ray Ordered: Yes # of Views/Limited/Complete: 1 View Indication: Shortness of Breath EP Interpretation: Yes Interpretation: no effusion, no pneumothorax, other - right lower lobe interstitial infiltrate Impression: Other - pneumonia Electronically Signed by: Al Bhatia MD Last Vital Signs Date Time Temp Pulse Resp B/P (MAP) Pulse Ox O2 Delivery O2 Flow Rate FiO2 10/28/17 02:40 87 18 96 Room Air 10/28/17 02:25 98.2 126/72 98.2 Status: improved Disposition: HOME, SELF-CARE Condition: Stable Scripts Azithromycin* (ZITHROMAX*) 250 Mg Tablet 250 MG ORAL DAILY, #6 TAB 0 Refills Take two tablets by mouth today, then take one tablet by mouth daily for four days Prov: AL BHATIA M.D. 10/28/17 Albuterol Sulfate* (ALBUTEROL SULFATE MDI*) 8.5 Gm Hfa.aer.ad 2 PUFF INH Q4H PRN for cough/wheezing, #1 EA 0 Refills Prov: AL BHATIA M.D. 10/28/17 Referrals: [facility],REFERR[facility] (PCP) Additional Instructions: Follow-up with your in 7 days. Return of worse. AL BHATIA M.D. Oct 28, 2017 03:03
[2017-10-28 03:10] VITALS: BP 126/72
--- NOTE | 2017-10-28 10:46 | Diagnostic Imaging Report ---
Indication: Cough Technique: One view of the chest Comparison: 10/01/2017 Findings: Questionable streaky opacities are present at the right lung base. The remainder the lungs and pleural spaces are clear. Heart size is normal Impression: Possible right basilar streaky opacities, could represent focal infiltrate. Correlate with clinical findings No other acute abnormality This agrees with the preliminary interpretation provided by the emergency room physician
== END 2017-10-28 03:12 | disposition home or self-care (01) ==
LOC: EMR 02:32
DX: J18.9 Pneumonia, unspecified organism (principal); I10 Essential (primary) hypertension; I25.10 Atherosclerotic heart disease of native coronary artery without angina pectoris
CPT/HCPCS: 71045; 94640; 94664; 99284

== ENCOUNTER 2017-11-14 23:28 | Emergency (ER) | payer MEDICAID ==
[~2017-11-14] VITALS: Ht 172.7 cm; Wt 76.2 kg
[~2017-11-14 23:28] MED LIST changes: +AZITHROMYCIN250 MG ORAL
[2017-11-14 23:55] VITALS: BP 148/82
[2017-11-15] MEDS ORDERED: NORCO 5-325 TA1 EACH ORAL (00:10)
[2017-11-15] MEDS ORDERED: Norco 5mg/325mg tab ORAL ONE (00:15)
[2017-11-15 00:20] VITALS: BP 148/82
--- NOTE | 2017-11-15 00:57 | Emergency Room Report ---
History of Present Illness General Chief Complaint: Skin Rash/Abscess Source: Patient, Medical Record Present Illness HPI 57-year-old female, history of CK D, DVT on eliquis, cellulitis treated last month, presenting with chronic right ankle pain. Patient states that she has had ankle pain for the last 1-2 months. Has been taking the naproxen but it does not help. States that she was already treated with antibiotics the last time she was here. No fever no chills no redness. No trauma. Bilateral legs are swollen but states that it is chronic. She is compliant with her medication Allergies: Coded Allergies: DOXYCYCLINE (Verified Allergy, Unknown, 07/21/15) Patient History Past Medical History: see triage record Past Surgical History: none Pertinent Family History: none Last Menstrual Period: none Now: No : 4 Para: 4 Reviewed Nursing Documentation: PMH: Agreed; PSxH: Agreed Nursing Documentation-PMH Hx Cardiac Problems: Yes - high cholesterol, angio-seal procedure 2018 Hx Hypertension: Yes Hx Pacemaker: No Hx Diabetes: No Hx Cancer: No Hx Gastrointestinal Problems: No Hx Neurological Problems: No Hx Seizures: No Review of Systems All Other Systems: negative except mentioned in HPI Physical Exam Vital Signs Date Time Temp Pulse Resp B/P (MAP) Pulse Ox O2 Delivery O2 Flow Rate FiO2 11/14/17 23:41 98.2 87 15 148/82 96 Room Air 98.2 Sp02 EP Interpretation: reviewed, normal General Appearance: alert, GCS 15, non-toxic, mild distress Head: normocephalic, atraumatic Eyes: bilateral eye normal inspection, bilateral eye PERRL, bilateral eye EOMI ENT: normal ENT inspection, normal pharynx, normal voice, moist mucus membranes Neck: normal inspection, full range of motion, supple Respiratory: normal inspection, lungs clear, normal breath sounds, no respiratory distress, no retraction, no wheezing, speaking full sentences, chest symmetrical Cardiovascular #1: normal inspection, regular rate, rhythm, no edema, normal capillary refill Cardiovascular #2: 2+ radial (R), 2+ radial (L) Gastrointestinal: normal inspection, non tender, soft, non-distended, no guarding Musculoskeletal: other - Bilateral ankles with mild edema, chronic discoloration, calf is not tender bilaterally, no increased swelling of right versus left, mild tenderness palpation along ankle, no bony deformities, has full range of motion, skin is warm and well perfused, distal pulses are intact Neurologic: normal inspection, alert, oriented x3, responsive, motor strength/ tone normal, sensory intact, normal gait, speech normal Psychiatric: normal inspection, judgement/insight normal, memory normal Skin: normal inspection, normal color, no rash, warm/dry, well hydrated, normal turgor Medical Decision Making Diagnostic Impression: Primary Impression: Chronic leg pain ER Course 57-year-old female with chronic right leg pain DDX: Patient with chronic right ankle pain, no signs of trauma for concern of fracture versus contusion, has full range of motion, nontender calf, is complaint with her eliquis. Patient states that she just wants pain medication No signs of cellulitis Plan: Pain control ER course: Patient has remained stable during ED stay. Disposition: Patient is to be discharged to home. Patient is instructed to follow up with their primary care doctor within 5 days. Strict return precautions discussed with patient such as fever, chills, worsening/severe pain, chest pain, SOB, nausea, vomiting, which may indicate severe illness. Patient verbalizes understanding and agrees with plan. Please note that this Emergency Department Report was dictated using Noemalif[employer]ire[employer] helper technology software, occasionally this can lead to erroneous entry secondary to interpretation by the dictation equipment Last Vital Signs Date Time Temp Pulse Resp B/P (MAP) Pulse Ox O2 Delivery O2 Flow Rate FiO2 11/15/17 00:20 98.2 15 148/82 96 Room Air 208.8 11/14/17 23:41 87 Disposition: HOME, SELF-CARE Condition: Stable Scripts Hydrocodone Bit/Acetaminophen 5-325* (NORCO 5-325*) 1 Each Tablet 1 TAB ORAL Q6H PRN for For Pain, #20 TAB 0 Refills Prov: Peace Chance M.D. 11/15/17 Patient Instructions: Chronic Pain Peace Chance M.D. Nov 15, 2017 00:57
== END 2017-11-15 00:24 | disposition home or self-care (01) ==
LOC: EMR 23:55
DX: G89.29 Other chronic pain (principal); M79.604 Pain in right leg; M25.571 Pain in right ankle and joints of right foot; Z88.1 Allergy status to other antibiotic agents; I10 Essential (primary) hypertension
CPT/HCPCS: 99283

== ENCOUNTER 2017-12-22 18:43 | Emergency (ER) | payer MEDICAID ==
[~2017-12-22] VITALS: Ht 172.7 cm; Wt 77.1 kg
[2017-12-22] MEDS ORDERED: LIPITOR80 MG ORAL (18:58)
[2017-12-22] MEDS ORDERED: OMEPRAZOLE40 M1 ORAL (18:58)
[2017-12-22] MEDS ORDERED: CARDIZEM60 MG ORAL (18:58)
[2017-12-22] MEDS ORDERED: HYDROCHLOROTHIA25 MG ORAL (18:58)
--- NOTE | 2017-12-22 19:12 | Emergency Room Report ---
History of Present Illness General Chief Complaint: Abdominal Pain Source: Patient Present Illness HPI 57-year-old female patient presents ER complaining of diarrhea and epigastric pain for the past 5 days. Patient denies recent travel. Patient reports no blood in diarrhea. Patient denies new foods or change to diet. Patient denies contacts similar symptoms. Patient reports no history of GI surgery. Patient reports history of gastritis. Patient denies fever, chest pain, shortness of breath, back pain. Patient denies dysuria, hematuria. Patient reports last menstrual period was a few years ago. denies vomiting. Allergies: Coded Allergies: DOXYCYCLINE (Verified Allergy, Unknown, 07/21/15) Patient History Past Medical History: see triage record Last Menstrual Period: Post. 2011 Reviewed Nursing Documentation: PMH: Agreed; PSxH: Agreed Nursing Documentation-PMH Hx Cardiac Problems: Yes - high cholesterol, angio-seal procedure 2017, Chronic Venous Stasis Hx Hypertension: Yes Hx Pacemaker: No Hx Diabetes: No Hx Cancer: No Hx Neurological Problems: No Hx Seizures: No Review of Systems All Other Systems: negative except mentioned in HPI Physical Exam Vital Signs Date Time Temp Pulse Resp B/P (MAP) Pulse Ox O2 Delivery O2 Flow Rate FiO2 12/22/17 18:53 98.0 91 17 133/84 97 Room Air 98.1 Sp02 EP Interpretation: reviewed, normal General Appearance: well appearing, no apparent distress, alert, GCS 15, non- toxic Head: normocephalic, atraumatic Eyes: bilateral eye normal inspection, bilateral eye PERRL ENT: hearing grossly normal, normal pharynx, no angioedema, normal voice, uvula midline, moist mucus membranes Neck: full range of motion Respiratory: lungs clear, normal breath sounds, no rhonchi, no respiratory distress, no accessory muscle use, no wheezing, speaking full sentences Cardiovascular #1: regular rate, rhythm, no edema Gastrointestinal: soft, no mass, non-distended, no guarding, no rebound, tenderness - epigastric, other - negative Rovsing, negative obturator, negative Lee Genitourinary: no CVA tenderness Musculoskeletal: back normal, digits/nails normal, gait/station normal, normal range of motion, non-tender Neurologic: alert, oriented x3, responsive, motor strength/tone normal, sensory intact Psychiatric: mood/affect normal Medical Decision Making PA Attestation Dr. Hayes is my supervising Physician whom patient management has been discussed with. Diagnostic Impression: Primary Impression: Pancreatitis Additional Impression: Enteritis ER Course Pt. presents to the ED c/o abdominal pain and vomiting. Ddx considered but are not limited to UTI, cholelithiasis, cholecystitis, pancreatitis, appendicitis, diverticulitis. Begin abdominal pain workup. Provided patient with pain medication. Vital signs: are WNL, pt. is afebrile ORDERS: CBC, CMP, Lipase, UA, CT abdomen pelvis, Zofran, GI cocktail. ER COURSE: Patient has moist mucous membranes, no signs dehydration at this time. CBC and CMP unremarkable, no elevation of WBCs or LFTs. lipase levels elevated, concerning for possible acute pancreatitis, consult with Dr. Hayes, will admit patient CT abdomen and shows dilated small bowel with help a definite transition point concerning for nonspecific enteritis, low suspicion for SBO at this time trace pelvic free fluid no nephrolithiasis or hydronephrosis appendixes nondilated solid organs are unremarkable. Copy of results provided to patient, discussed results with patient. Patient reports relief of pain symptoms, no TTP on re-examination. . Patient reports does not want to be admitted at this time due to concerns about her car. Patient reports that she can come back later to be admitted. Informed patient that she will need to be discharged AMA and upon return will need to reregister and have another workup prior to admission. Patient reports understanding and agreement. Advised patient on risks of AMA discharge including but not limited to short bowel instruction and . Patient reports understanding and okay with AMA at this time. DISCHARGE: RX provided for Cipro Rx provided for Tylenol for pain At this time pt. is stable for d/c to home. Patient resting comfortably, in no acute distress, nontoxic appearing, talking without difficulty. Rx provided to patient. Patient to take medications as instructed Will provide with patient care instructions and any necessary prescriptions. Care plan and follow-up instructions provided. Patient instructed to follow-up with primary care provider in 3 - 5 days. Patient questions asked and answered. Patient reports understanding and agreement to treatment plan. ER precautions given. Patient instructed to return to ER immediately for any new or worsening of symptoms including but not limited to increasing SOB, persistent fever, worsening of pain symptoms, intractable vomiting, blood in stool, urine, and/or emesis. - Please note that this Emergency Department Report was dictated using Coreworks technology software, occasionally this can lead to erroneous entry secondary to interpretation by the dictation equipment. Labs Test 12/22/17 19:32 White Blood Count 5.3 K/UL (4.8-10.8) Red Blood Count 5.33 M/UL (4.20-5.40) Hemoglobin 13.2 G/DL (12.0-16.0) Hematocrit 42.4 % (37.0-47.0) Mean Corpuscular Volume 80 FL (80-99) Mean Corpuscular Hemoglobin 24.8 PG (27.0-31.0) Mean Corpuscular Hemoglobin Concent 31.1 G/DL (32.0-36.0) Red Cell Distribution Width 13.9 % (11.6-14.8) Platelet Count 298 K/UL (150-450) Mean Platelet Volume 8.3 FL (6.5-10.1) Neutrophils (%) (Auto) 64.8 % (45.0-75.0) Lymphocytes (%) (Auto) 27.1 % (20.0-45.0) Monocytes (%) (Auto) 5.2 % (1.0-10.0) Eosinophils (%) (Auto) 1.3 % (0.0-3.0) Basophils (%) (Auto) 1.6 % (0.0-2.0) Sodium Level 141 MMOL/L (136-145) Potassium Level 4.0 MMOL/L (3.5-5.1) Chloride Level 107 MMOL/L (98-107) Carbon Dioxide Level 21 MMOL/L (21-32) Anion Gap 13 mmol/L (5-15) Blood Urea Nitrogen 30 mg/dL (7-18) Creatinine 1.9 MG/DL (0.55-1.30) Estimat Glomerular Filtration Rate 33.0 mL/min (>60) Glucose Level 94 MG/DL (74-106) Calcium Level 8.7 MG/DL (8.5-10.1) Total Bilirubin 0.2 MG/DL (0.2-1.0) Aspartate Amino Transf (AST/SGOT) 37 U/L (15-37) Alanine Aminotransferase (ALT/SGPT) 35 U/L (12-78) Alkaline Phosphatase 71 U/L (46-116) Total Protein 9.3 G/DL (6.4-8.2) Albumin 3.4 G/DL (3.4-5.0) Globulin 5.9 g/dL Albumin/Globulin Ratio 0.6 (1.0-2.7) Lipase 724 U/L (73-393) Last Vital Signs Date Time Temp Pulse Resp B/P (MAP) Pulse Ox O2 Delivery O2 Flow Rate FiO2 12/22/17 18:53 98.0 91 17 133/84 97 Room Air 98.1 Disposition: AGAINST MEDICAL ADVICE Condition: Serious Scripts Acetaminophen* (TYLENOL EXTRA STRENGTH*) 500 Mg Tablet 500 MG ORAL Q8H PRN for Prn Headache/Temp > 101, #30 TAB 0 Refills Prov: Anthony Saba 12/22/17 Ciprofloxacin Hcl* (CIPROFLOXACIN HCL*) 500 Mg Tablet 500 MG ORAL EVERY 12 HOURS, #14 TAB 0 Refills Prov: Anthony Saba 12/22/17 Patient Instructions: Acute Pancreatitis, [id number], Diarrhea, Adult, Easy- to-Read, Small Bowel Obstruction, [id number] Additional Instructions: Followup with primary care provider in 3 -5 days. Avoid spicy foods, avoid dairy foods. BRAT diet: bananas, rice, apple sauce, toast. Take medications as directed. Patient questions asked and answered. ER precautions given, patient instructed to return to ER immediately for any new or worsening of symptoms. Anthony Saba December 22, 2017 19:11
[2017-12-22] MEDS ORDERED: Mylanta II UD 30ml ORAL ONE (19:15)
[2017-12-22] MEDS ORDERED: Dicyclomine HCl 10mg/5ml oral soln ORAL ONE (19:15)
[2017-12-22] MEDS ORDERED: Lidocaine 2% Visc 15ml soln ORAL ONE (19:15)
[2017-12-22 19:30] VITALS: BP 133/84
[2017-12-22 19:47] LABS: BASOPHILS % (AUTO) 1.6 % (0.0-2.0); EOSINOPHILS % (AUTO) 1.3 % (0.0-3.0); HEMATOCRIT 42.4 % (37.0-47.0); HEMOGLOBIN 13.2 G/DL (12.0-16.0); LYMPHOCYTES % (AUTO) 27.1 % (20.0-45.0); MEAN CORPUSCULAR VOLUME 80 FL (80-99); MONOCYTES % (AUTO) 5.2 % (1.0-10.0); NEUTROPHILS % (AUTO) 64.8 % (45.0-75.0); PLATELET COUNT 298 K/UL (150-450); RED BLOOD COUNT 5.33 M/UL (4.20-5.40); RED CELL DISTRIBUTION WIDTH 13.9 % (11.6-14.8); WHITE BLOOD COUNT 5.3 K/UL (4.8-10.8)
[2017-12-22 20:05] LABS: ANION GAP 13 mmol/L (5-15); BLOOD UREA NITROGEN 30 mg/dL (7-18); CALCIUM 8.7 MG/DL (8.5-10.1); CARBON DIOXIDE 21 MMOL/L (21-32); CHLORIDE 107 MMOL/L (98-107); CREATININE 1.9 MG/DL (0.55-1.30); SODIUM 141 MMOL/L (136-145)
[2017-12-22 20:09] LABS: ALANINE AMINOTRANSFERASE 35 U/L (12-78); ALBUMIN 3.4 G/DL (3.4-5.0); ALBUMIN/GLOBULIN RATIO 0.6 (1.0-2.7); ALKALINE PHOSPHATASE 71 U/L (46-116); ASPARTATE AMINO TRANSFERASE 37 U/L (15-37); BILIRUBIN,TOTAL 0.2 MG/DL (0.2-1.0)
[2017-12-22] MEDS ORDERED: CIPROFLOXACIN500 M2 ORAL (20:57)
[2017-12-22] MEDS ORDERED: TYLENOL EXTRA500 MG ORAL (20:57)
[2017-12-22 21:20] VITALS: BP 136/88
--- NOTE | 2017-12-23 09:58 | Diagnostic Imaging Report ---
Indication: Abdominal pain Technique: Continuous helical transaxial imaging of the abdomen and pelvis was obtained from the lung bases to the pubic symphysis. No intravenous contrast was administered. Coronal 2-D reformats were also obtained. Automatic Exposure Control was utilized. Total Dose length Product (DLP): 685.[address] Dose Index Volume (CTDIvol): 13.21 mGy Comparison: none Findings: There are some mild moderately distended small bowel loops with a thickened wall especially in the lower abdomen with fecalized small bowel noted. This is a sign of stasis and may indicate enteritis/ileus. Obstruction is not excluded. The colon is also mildly distended with stool. Aorta is calcified. The gallbladder is relatively nondistended. There is minimal left basal atelectasis present. Evaluation of solid organs limited on noncontrast imaging. Appendix appears nondilated. No obvious free fluid. No free air identified. No hydronephrosis seen. IMPRESSION: Dilated, fecalized small bowel in the lower abdomen demonstrated. 6 suspect enteritis/ileus. Obstruction not excluded. Moderate colonic stool retention. Other findings as above The CT scanner at [facility] is accredited by the [employer] and the scans are performed using dose optimization techniques as appropriate to a performed exam including Automatic Exposure control.
== END 2017-12-22 21:20 | disposition left against medical advice (07) ==
LOC: EMR 21:04 → CANBEDREQ 21:29
DX: K85.90 Acute pancreatitis without necrosis or infection, unspecified (principal); K52.9 Noninfective gastroenteritis and colitis, unspecified; Z88.8 Allergy status to other drugs, medicaments and biological substances; I10 Essential (primary) hypertension; E78.00 Pure hypercholesterolemia, unspecified
CPT/HCPCS: 36415; 74176; 80053; 83690; 85025; 96374; 99285; J2405

== ENCOUNTER 2017-12-22 22:44 | Emergency (ER) | payer MEDICAID ==
[~2017-12-22] VITALS: Ht 172.7 cm; Wt 77.1 kg
[~2017-12-22 22:44] MED LIST changes: +CARDIZEM60 MG ORAL; +CIPROFLOXACIN500 M2 ORAL; +LIPITOR80 MG ORAL; +OMEPRAZOLE40 M1 ORAL; +TYLENOL EXTRA500 MG ORAL
[2017-12-22 22:50] VITALS: BP 140/70
[2017-12-23 00:30] VITALS: BP 130/78
--- NOTE | 2017-12-23 00:38 | Emergency Room Report ---
History of Present Illness General Chief Complaint: Abdominal Pain Source: Patient, Medical Record Present Illness HPI Is a 57-year-old female who was here earlier today for abdominal pain. Labs showed she has acute pancreatitis. CT scan unremarkable except for an ileus. She was to be admitted versus transfer but she sat out AMA because she had some personal issues that she hasn't take care of first at home. She is back now. She's been complaining abdominal pain mostly epigastric and left upper quadrant pain for last few days. No nausea no vomiting. Worse with eating. Denies any other complaint. Allergies: Coded Allergies: DOXYCYCLINE (Verified Allergy, Unknown, 07/21/15) Patient History Past Medical History: see triage record, old chart reviewed Past Surgical History: other Pertinent Family History: none Social History: Denies: smoking Last Menstrual Period: none Now: No Immunizations: other Reviewed Nursing Documentation: PMH: Agreed; PSxH: Agreed Nursing Documentation-PMH Hx Cardiac Problems: Yes - high cholesterol, angio-seal procedure 2018, Chronic Venous Stasis Hx Hypertension: Yes Hx Pacemaker: No Hx Diabetes: No Hx Cancer: No Hx Neurological Problems: No Hx Seizures: No Review of Systems Eye: Denies: eye pain, blurred vision ENT: Denies: ear pain, nose congestion, throat swelling Respiratory: Denies: cough, shortness of breath Cardiovascular: Denies: chest pain, palpitations Gastrointestinal: Reports: abdominal pain; Denies: diarrhea, nausea, vomiting Musculoskeletal: Denies: back pain, joint pain Skin: Denies: rash Neurological: Denies: headache, numbness Endocrine: Denies: increased thirst, increased urine Hematologic/Lymphatic: Denies: easy bruising All Other Systems: negative except mentioned in HPI Physical Exam Vital Signs Date Time Temp Pulse Resp B/P (MAP) Pulse Ox O2 Delivery O2 Flow Rate FiO2 12/22/17 22:50 98.7 78 18 140/70 97 Room Air 98.7 vitals normal Sp02 EP Interpretation: reviewed, normal General Appearance: well appearing, no apparent distress, alert Head: normocephalic, atraumatic Eyes: bilateral eye PERRL, bilateral eye EOMI ENT: hearing grossly normal, normal pharynx Neck: full range of motion, supple, no meningismus Respiratory: chest non-tender, lungs clear, normal breath sounds Cardiovascular #1: regular rate, rhythm, no murmur Gastrointestinal: normal bowel sounds, no mass, no organomegaly, no bruit, non- distended, tenderness - left upper quadrant Musculoskeletal: back normal, gait/station normal, normal range of motion Psychiatric: mood/affect normal Skin: warm/dry Medical Decision Making Diagnostic Impression: Primary Impression: Pancreatitis, acute Qualified Codes: K85.90 - Acute pancreatitis without necrosis or infection, unspecified ER Course Patient presents with abdominal pain and has acute pancreatitis on lab work. We 'll repeat lipase level. Patient is pending admission versus transfer. Pain is well-controlled. I discussed case with Dr. Knight at [facility]. He accepted pt for transfer to [facility]. Last Vital Signs Date Time Temp Pulse Resp B/P (MAP) Pulse Ox O2 Delivery O2 Flow Rate FiO2 12/22/17 22:54 98.3 96 18 136/80 99 Room Air 98.2 Status: unchanged Disposition: XFER SHT-TRM HOSP Condition: Stable Referrals: NON PHYSICIAN (PCP) EVERT MAYBERRY M.D. December 23, 2017 00:38
[2017-12-23 02:46] VITALS: BP 119/67
[2017-12-23 02:52] VITALS: BP 119/67
== END 2017-12-23 02:53 | disposition short-term general hospital (02) ==
LOC: EMR 23:43
DX: K85.90 Acute pancreatitis without necrosis or infection, unspecified (principal); I10 Essential (primary) hypertension
CPT/HCPCS: 36415; 83690; 99285

== ENCOUNTER 2018-04-26 13:24 | Emergency (ER) | payer MEDICAID ==
[~2018-04-26] VITALS: Ht 172.7 cm; Wt 74.8 kg
[2018-04-26] MEDS ORDERED: LORazepam Inj 2mg/ml 1ml IV ONE (13:30)
[2018-04-26] MEDS ORDERED: Albuterol/Ipratropium 3ml neb HHN ONE (13:30)
[2018-04-26 13:37] VITALS: BP 128/58
[2018-04-26] MEDS ORDERED: Sodium Chloride 500ML 500 ML IV ONE (14:15)
[2018-04-26 14:23] LABS: APPEARANCE,URINE CLEAR; BILIRUBIN, URINE NEGATIVE (NEGATIVE); COLOR,URINE PALE YELLOW; GLUCOSE, URINE (UA) NEGATIVE (NEGATIVE); KETONES,URINE NEGATIVE (NEGATIVE); LEUKOCYTE ESTERASE ,URINE 1+ (NEGATIVE); NITRITE,URINE NEGATIVE (NEGATIVE); PH,URINE 6 (4.5-8.0); PROTEIN,URINE 3+ (NEGATIVE); UROBILINOGEN,URINE NORMAL MG/DL (0.0-1.0)
[2018-04-26 14:29] LABS: BASOPHILS % (AUTO) 1.1 % (0.0-2.0); EOSINOPHILS % (AUTO) 0.5 % (0.0-3.0); HEMATOCRIT 36.5 % (37.0-47.0); HEMOGLOBIN 11.6 G/DL (12.0-16.0); LYMPHOCYTES % (AUTO) 12.1 % (20.0-45.0); MEAN CORPUSCULAR VOLUME 74 FL (80-99); MONOCYTES % (AUTO) 8.1 % (1.0-10.0); NEUTROPHILS % (AUTO) 78.2 % (45.0-75.0); PLATELET COUNT 655 K/UL (150-450); RED BLOOD COUNT 4.91 M/UL (4.20-5.40); RED CELL DISTRIBUTION WIDTH 13.7 % (11.6-14.8); WHITE BLOOD COUNT 15.6 K/UL (4.8-10.8)
[2018-04-26] MEDS ORDERED: cefTRIAXone 1 GM in NS 55 ML IVPB ONE (15:00)
[2018-04-26] MEDS ORDERED: Aspirin Baby 81mg ORAL ONE (15:00)
--- NOTE | 2018-04-26 15:01 | Emergency Room Report ---
History of Present Illness General Chief Complaint: Dyspnea/Respdistress Source: Patient (Jossue Avila MD) Present Illness HPI Patient is a 58-year-old female who presented after increased chest pain as well as shortness of breath. The patient reports having prior negative catheterization. She reports having increased chest discomfort which he describes a tightness sensation. She had some associated shortness of breath. She had no productive cough. She denies any prior lung problems.She denies any vomiting. The patient had sudden onset of symptoms.The patient presented having onset of pain approximately 4 days ago.The patient onset at rest.The patient reports having some productive cough. The pain was constant in nature for the past 4 days. The patient reports having prior history of DVT. (Jossue Avila MD) Allergies: Coded Allergies: DOXYCYCLINE (Verified Allergy, Unknown, 07/21/15) Patient History Past Medical History: see triage record Reviewed Nursing Documentation: PMH: Agreed; PSxH: Agreed (Jossue Avila MD) Nursing Documentation-PMH Hx Cardiac Problems: Yes - high cholesterol, angio-seal procedure 2017, Chronic Venous Stasis Hx Hypertension: Yes Hx Pacemaker: No Hx Diabetes: No Hx Cancer: No Hx Neurological Problems: No Hx Seizures: No (Jossue Avila MD) Review of Systems All Other Systems: negative except mentioned in HPI (Jossue Avila MD) Physical Exam Vital Signs Date Time Temp Pulse Resp B/P (MAP) Pulse Ox O2 Delivery O2 Flow Rate FiO2 04/26/18 13:29 98.2 108 23 128/58 96 Room Air 98.2 04/26/18 13:54 2.0 28 Sp02 EP Interpretation: reviewed, normal General Appearance: normal inspection, well appearing, no apparent distress, alert, GCS 15, mild distress, thin, Chronically Ill Head: atraumatic ENT: normal ENT inspection, hearing grossly normal, normal voice Neck: normal inspection, full range of motion, supple, no bony tend Respiratory: normal inspection, lungs clear, normal breath sounds, no respiratory distress, no retraction, no wheezing Cardiovascular #1: regular rate, rhythm, no edema Gastrointestinal: normal inspection, normal bowel sounds, non tender, soft, no guarding, no hernia Genitourinary: no CVA tenderness Musculoskeletal: normal inspection, back normal, normal range of motion Neurologic: normal inspection, alert, oriented x3, responsive, routeman III-XII nml as tested, speech normal Psychiatric: normal inspection, judgement/insight normal, mood/affect normal Skin: no rash, other - left leg discolored ulcer to leg (Jossue Avila MD) Medical Decision Making Diagnostic Impression: Primary Impression: Non-ST elevated myocardial infarction Additional Impressions: Chest pain Pleural effusion, left ER Course Patient presented for chest pain. Differential diagnosis included but was not limited to acute coronary syndrome, pulmonary embolism, pneumonia, aortic dissection, shingles, pneumothorax, aortic dissection, esophageal rupture, pericarditis. EKG interpreted by me showed normal sinus rhythm with a rate of [address] or T wave changes. I laboratory testing was notable for elevated troponin. Patient was given Ativan as well as aspirin. She is given a breathing treatment.The patient was noted to have some improvement in her symptoms. initial troponin was greater than 1. Patient was noted to have the relatively sizable left pleural effusion. CT of the chest was ordered of the patient's prior history of DVT to rule out pulmonary embolism. The patient was noted to be hypoxemic. Patient was discussed with Dr. Owens from [facility] who agreed to accept the patient as a transfer The pending results of CTA.The shoe caser will need to be recontacted prior to the transferred due to the pending CT. The patient was endorsed to Dr. Rahman pending CT Labs Test 04/26/18 14:08 White Blood Count 15.6 K/UL (4.8-10.8) Red Blood Count 4.91 M/UL (4.20-5.40) Hemoglobin 11.6 G/DL (12.0-16.0) Hematocrit 36.5 % (37.0-47.0) Mean Corpuscular Volume 74 FL (80-99) Mean Corpuscular Hemoglobin 23.6 PG (27.0-31.0) Mean Corpuscular Hemoglobin Concent 31.8 G/DL (32.0-36.0) Red Cell Distribution Width 13.7 % (11.6-14.8) Platelet Count 655 K/UL (150-450) Mean Platelet Volume 7.0 FL (6.5-10.1) Neutrophils (%) (Auto) 78.2 % (45.0-75.0) Lymphocytes (%) (Auto) 12.1 % (20.0-45.0) Monocytes (%) (Auto) 8.1 % (1.0-10.0) Eosinophils (%) (Auto) 0.5 % (0.0-3.0) Basophils (%) (Auto) 1.1 % (0.0-2.0) Urine Color Pale yellow Urine Appearance Clear Urine pH 6 (4.5-8.0) Urine Specific [place] 1.010 (1.005-1.035) Urine Protein 3+ (NEGATIVE) Urine Glucose (UA) Negative (NEGATIVE) Urine Ketones Negative (NEGATIVE) Urine Blood 2+ (NEGATIVE) Urine Nitrite Negative (NEGATIVE) Urine Bilirubin Negative (NEGATIVE) Urine Urobilinogen Normal MG/DL (0.0-1.0) Urine Leukocyte Esterase 1+ (NEGATIVE) Urine RBC 2-4 /HPF (0 - 2) Urine WBC 0-2 /HPF (0 - 2) Urine Squamous Epithelial Cells None /LPF (NONE/OCC) Urine Bacteria None /HPF (NONE) Troponin I 1.103 ng/mL (0.000-0.056) Urine Opiates Screen Negative (NEGATIVE) Urine Barbiturates Screen Negative (NEGATIVE) Phencyclidine (PCP) Screen Negative (NEGATIVE) Urine Amphetamines Screen Negative (NEGATIVE) Urine Benzodiazepines Screen Negative (NEGATIVE) Urine Cocaine Screen Negative (NEGATIVE) Urine Marijuana (THC) Screen Negative (NEGATIVE) (Jossue Avila MD) ER Course See above note from Dr. Avila. [place] 2.4. Cancelling CTA. Discussed this with accepting MD. Suggested V/Q scan at accepting facility. Heparin ordered (suspect that patient not taking Elaquis). (Jensen Rahman M.D.) EKG Diagnostic Results Rate: tachycardiac (Jossue Avila MD) Last Vital Signs Date Time Temp Pulse Resp B/P (MAP) Pulse Ox O2 Delivery O2 Flow Rate FiO2 04/26/18 14:10 65 20 98 Nasal Cannula 2.0 28 04/26/18 13:37 98.2 128/58 98.2 Status: unchanged (Jossue Avila MD) Last Vital Signs Date Time Temp Pulse Resp B/P (MAP) Pulse Ox O2 Delivery O2 Flow Rate FiO2 04/26/18 21:03 98.2 24 135/75 96 Nasal Cannula 2.0 28 98.2 04/26/18 15:15 110 Status: improved (Jensen Rahman M.D.) Disposition: XFER SHT-TRM HOSP Condition: Serious Referrals: [facility],REFERRING (PCP) Jossue Avila MD Apr 26, 2018 15:01 Jensen Rahman M.D. Apr 26, 2018 16:33
[2018-04-26] MEDS ORDERED: Metoprolol 5mg/5ml Inj IVP ONE (15:15)
[2018-04-26] MEDS ORDERED: Nitroglycerin Subl 0.4mg tab SL PRN (15:15)
--- NOTE | 2018-04-26 15:23 | Diagnostic Imaging Report ---
Indication: Shortness of breath Technique: XRAY Chest 1v Comparison: None Findings: Heart borders are obscured. Heart size may be enlarged. Bilateral pleural effusions, left greater than right with bibasilar atelectasis/consolidation. No appreciable pneumothorax. No acute osseous abnormality. Impression: Bilateral pleural effusions and bibasilar atelectasis/consolidation. Superimposed pneumonia should be excluded clinically.
[2018-04-26 15:25] VITALS: BP 135/75
[2018-04-26] MEDS ORDERED: Isovue-370 150ml vial INJ PRN (15:30)
[2018-04-26 16:01] LABS: ANION GAP 12 mmol/L (5-15); BLOOD UREA NITROGEN 40 mg/dL (7-18); CALCIUM 8.3 MG/DL (8.5-10.1); CARBON DIOXIDE 20 MMOL/L (21-32); CHLORIDE 106 MMOL/L (98-107); CREATININE 2.4 MG/DL (0.55-1.30); POTASSIUM 3.8 MMOL/L (3.5-5.1); SODIUM 138 MMOL/L (136-145)
[2018-04-26 16:15] LABS: ALANINE AMINOTRANSFERASE 53 U/L (12-78); ALBUMIN 1.9 G/DL (3.4-5.0); ALBUMIN/GLOBULIN RATIO 0.3 (1.0-2.7); ALKALINE PHOSPHATASE 68 U/L (46-116); ASPARTATE AMINO TRANSFERASE 55 U/L (15-37); BILIRUBIN,TOTAL 0.2 MG/DL (0.2-1.0); CKMB 11.4 NG/ML (0.0-3.6)
[2018-04-26] MEDS ORDERED: Heparin 5000 units/ml inj IV ONE (16:30)
[2018-04-26 21:03] VITALS: BP 135/75
--- NOTE | 2018-04-27 15:51 | Cardiology Report ---
APPROVED REPORT EKG Measurement Heart [id number] CT [id number] Age and gender specific ECG analysis Sinus rhythm with premature atrial complexes Septal infarct, age undetermined Inferior injury pattern Abnormal ECG
== END 2018-04-26 19:00 | disposition short-term general hospital (02) ==
LOC: EMR 13:35 → EDBEDREQ 14:58 → EMR 19:00
DX: I21.4 Non-ST elevation (NSTEMI) myocardial infarction (principal); J91.8 Pleural effusion in other conditions classified elsewhere; I10 Essential (primary) hypertension; E78.00 Pure hypercholesterolemia, unspecified
CPT/HCPCS: 36415; 71045; 80053; 80307; 80329; 81003; 82553; 84484; 85025; 93005; 94640; 94664; 96365; 96375; 99285; J0696; J1644; J1940; J7040; J7620

== ENCOUNTER 2020-08-31 12:53 | Emergency (ER) | payer MEDICAID ==
[~2020-08-31] VITALS: Ht 172.7 cm; Wt 45.4 kg
[~2020-08-31 12:53] MED LIST changes: +CALCIUM500 M3 PO; +GABAPENTIN300 MG ORAL; +IRON159 MG PO; +NORCO 10-325 T1 EACH ORAL; +PREDNISONE10 MG ORAL; +TADALAFIL20 M1 PO; +VITAMIN D2000 UNI3 PO
[2020-08-31] MEDS ORDERED: PANCREASE1 EA ORAL (13:20)
--- NOTE | 2020-08-31 13:24 | Emergency Room Report ---
History of Present Illness General Chief Complaint: Abdominal Pain Source: Patient (Anthony Whipple MD) Present Illness HPI Disclaimer: Please note that this report is being documented using DRAGON technology. This can lead to erroneous entry secondary to incorrect interpr etation by the dictating instrument. HPI: 60-year-old female history of CKD, pancreatitis presents for evaluation of abdominal pain and chest pain. Patient reports chronic abdominal pain worsening over the past month. She reports intermittent sharp left lower chest pain. This is been going on for some time as well. She reports vomiting yesterday. Reports diarrhea over the past few days. Denies fever or chills. Has been compliant with her medications. Denies shortness of breath or congestion or cough. PMH: Pancreatitis, CKD, lupus PSH: Reviewed Allergies: Doxycycline Social Hx: Reviewed (Anthony Whipple MD) Allergies: Coded Allergies: DOXYCYCLINE (Verified Allergy, Unknown, 07/21/15) COVID-19 Screening Contact w/high risk pt: No Experienced COVID-19 symptoms?: No COVID-19 Testing performed RESIDENT CARE MANAGER: No (Anthony Whipple MD) Nursing Documentation-PMH Hx Cardiac Problems: Yes - high cholesterol, angio-seal procedure 2018, Chronic Venous Stasis Hx Hypertension: Yes Hx Pacemaker: No Hx Diabetes: No Hx Cancer: No Hx Neurological Problems: No Hx Seizures: No (Anthony Whipple MD) Review of Systems All Other Systems: negative except mentioned in HPI (Anthony Whipple MD) Physical Exam Vital Signs Date Time Temp Pulse Resp B/P (MAP) Pulse Ox O2 Delivery O2 Flow Rate FiO2 08/31/20 12:58 97.7 77 17 102/64 (77) General: Awake and alert, no acute distress HEENT: NC/AT. EOMI. Cardiovascular: RRR. S1 and S2 normal. No murmur appreciated Resp: Normal work of breathing. No cough, wheezing or crackles appreciated Abdomen: Abdomen is soft, somewhat distended abdomen. Tender palpation of the upper quadrant epigastrium periumbilical region. Skin: Intact. No abrasions, laceration or rash over the exposed skin MSK: Normal tone and bulk. Moving all extremities. No obvious deformity. Neuro: Awake and alert. Mentating appropriately. (Anthony Whipple MD) Medical Decision Making Diagnostic Impression: Primary Impression: Pancreatitis Qualified Codes: K85.90 - Acute pancreatitis without necrosis or infection, unspecified Additional Impressions: Elevated troponin Renal insufficiency Leg ulcer Qualified Codes: L97.919 - Non-pressure chronic ulcer of unspecified part of right lower leg with unspecified severity ER Course Is a 60-year-old female presenting for evaluation of abdominal pain and chest pain. Differential includes vomiting gastritis, gastroenteritis, ACS, arrhythmia, pneumonitis, pancreatitis among others. (Anthony Whipple MD) ER Course Hospital Course 60-year-old female presents to ED with abdominal pain Patient initially seen and evaluated by Dr Whipple. Please see his note for full history and physical Clinical course Labs - no leukocytosis, Hb/Hct stable. BUN/creatinine elevated, troponin 0.2, lipase elevated. EKGnormal sinus rhythm no acute ischemic changes interpreted by me Chest x-ray no acute process CT abdomen and pelvis -dilated loops of bowel, ascites, consideration for enteritis A draining wound on her right leg. Managed by wound care at home. Wound culture obtained. Antibiotics started Because of insurance patient will be transferred I feel this is a highly complex case requiring extensive working including EKG/Rhythm strip, Xray/CT/US, Blood/urine lab work, repeat exams while in ED, and administration of strong opiates/narcotics for pain control, admission to hospital or close patient follow up. Diagnosis -pancreatitis, elevated troponin, renal insufficiency, leg ulcer Transferred in serious condition Laboratory Tests Test 08/31/20 13:50 White Blood Count 9.5 K/UL (4.8-10.8) Red Blood Count 4.37 M/UL (4.20-5.40) Hemoglobin 12.3 G/DL (12.0-16.0) Hematocrit 37.6 % (37.0-47.0) Mean Corpuscular Volume 86 FL (80-99) Mean Corpuscular Hemoglobin 28.2 PG (27.0-31.0) Mean Corpuscular Hemoglobin Concent 32.8 G/DL (32.0-36.0) Red Cell Distribution Width 14.4 % (11.6-14.8) Platelet Count 222 K/UL (150-450) Mean Platelet Volume 6.2 FL (6.5-10.1) L Neutrophils (%) (Auto) 83.8 % (45.0-75.0) H Lymphocytes (%) (Auto) 12.1 % (20.0-45.0) L Monocytes (%) (Auto) 3.8 % (1.0-10.0) Eosinophils (%) (Auto) 0.0 % (0.0-3.0) Basophils (%) (Auto) 0.3 % (0.0-2.0) Prothrombin Time 13.2 SEC (9.30-11.50) H Prothromb Time International Ratio 1.2 (0.9-1.1) H Activated Partial Thromboplast Time 28 SEC (23-33) Sodium Level 145 MMOL/L (136-145) Potassium Level 3.8 MMOL/L (3.5-5.1) Chloride Level 117 MMOL/L (98-107) H Carbon Dioxide Level 14 MMOL/L (21-32) L Anion Gap 14 mmol/L (5-15) Blood Urea Nitrogen 54 mg/dL (7-18) H Creatinine 2.0 MG/DL (0.55-1.30) H Estimat Glomerular Filtration Rate 30.9 mL/min (>60) Glucose Level 53 MG/DL (74-106) L Calcium Level 6.5 MG/DL (8.5-10.1) L Total Bilirubin 0.5 MG/DL (0.2-1.0) Aspartate Amino Transf (AST/SGOT) 30 U/L (15-37) Alanine Aminotransferase (ALT/SGPT) 45 U/L (12-78) Alkaline Phosphatase 56 U/L (46-116) Troponin I 0.201 ng/mL (0.000-0.056) Total Protein 5.6 G/DL (6.4-8.2) L Albumin 2.7 G/DL (3.4-5.0) L Globulin 2.9 g/dL Albumin/Globulin Ratio 0.9 (1.0-2.7) L Lipase 846 U/L (73-393) H (Sam Mayer MD) EKG Diagnostic Results Troponin ordered: Yes When was troponin ordered?: Aug 31, 2020 EKG Time: 13:32 Rate: normal Rhythm: NSR ST Segments: no acute changes Other Impression Sinus rhythm, slight left axis, normal intervals, QTC 433 ms, no ST segment elevation (Anthony Whipple MD) Troponin ordered: Yes Rate: normal Rhythm: NSR ST Segments: no acute changes ASA given to the pt in ED: No - patient on eliquis (Sam Mayer MD) Rhythm Strip Diag. Results Rhythm Strip Time: 13:32 EP Interpretation: yes Rate: 60s Rhythm: NSR, no PVC's, no ectopy (Anthony Whipple MD) EP Interpretation: yes Rhythm: NSR, no PVC's, no ectopy (Sam Mayer MD) Chest X-Ray Diagnostic Results Chest X-Ray Diagnostic Results : Chest X-Ray Ordered: Yes # of Views/Limited/Complete: 1 View Indication: Chest Pain EP Interpretation: Yes Interpretation: no consolidation, no effusion, no pneumothorax, no acute cardiopulmonary disease Impression: No acute disease Electronically Signed by: Electronically signed by Sam Mayer MD (Sam Mayer MD) CT/MRI/US Diagnostic Results CT/MRI/US Diagnostic Results : Imaging Test Ordered: CT A/P Impression Procedure: CT Abdomen Pelvis WO Contrast Indication: Abdominal pain with vomiting Technique: Spiral acquisitions obtained through the abdomen and pelvis. No oral contrast utilized, per emergency room physician request No IV contrast utilized, per emergency room physician request. Multiplanar reconstructions were generated. Total dose length product 178 mGycm. CTDIvol(s) 3 mGy. Dose reduction achieved using automated exposure control Comparison: 12/22/2017 Findings: There is diffuse anasarca, with extensive edema of the subcutaneous fat, mesenteric, abdominal, and pelvic fat. There is also free intraperitoneal fluid and bilateral pleural effusions. This is a new finding since the previous study. Extensive edema limits inherent soft tissue contrast. Lack of enteric contrast limits assessment assessment of the GI tract. There is mild distention of the rectum by feces. There are colonic diverticula. Due to the surrounding edema, it isn't possible to assess for diverticulitis. The appendix is normal. There is diffuse distention of the small bowel, small bowel loops gas and fluid-filled. No definite nondilated distal small bowel is visualized, although evaluation of the bowel is very difficult. No free intraperitoneal gas is demonstrated. The distal esophagus demonstrates wall thickening. The stomach and duodenum are grossly unremarkable. Lack of IV contrast limits assessment of the solid organs. The liver demonstrates equivocal slight surface nodularity. Subcentimeter low-attenuation lesions are seen within the liver which are too small to characterize, but evident previously and grossly unchanged. The gallbladder, bile ducts are unremarkable. The pancreatic duct is prominent in caliber. This is also evident previously. The spleen, adrenals, kidneys are grossly unremarkable. Uterus and adnexal structures appear unremarkable. No pelvic mass or adenopathy. Again demonstrated is surgical hardware in the left hip. Again demonstrated is an old healed right inferior pubic ramus fracture. Included lung bases demonstrate stable scarring on the left. There are small to moderate bilateral pleural effusions, not evident previously Impression: Diffuse anasarca, with extensive edema of the subcutaneous, mesenteric, abdominal and pelvic fat. This limits inherent soft tissue contrast and theref ore evaluation. Ascites Bilateral pleural effusions Limited assessment of the GI tract, due to lack of enteric contrast ad ministration Diffusely dilated fluid-filled small bowel, without definite visualization of nondilated downstream small bowel loops. Likely on the basis of enteritis and/or ileus, although distal small bowel obstruction is also possible. Equivocal slight hepatic surface nodularity, if real could indicate early cirrhotic changes Mildly ectatic pancreatic duct, also previously demonstrated, significance uncertain but may be related to history of pancreatitis described by referring physician Other findings as noted, including left basilar pulmonary critical scarring, left hip surgical hardware, old healed right inferior pubic ramus fracture, probable hepatic cysts Findings discussed by phone with Dr. Mayer at the time of interpretation The CT scanner at [facility] is accredited by the [employer] and the scans are performed using protocols designed to limit radiation exposure to as low as reasonably achievable to attain images of sufficient resolution adequate for diagnostic evaluation. (Sam Mayer MD) Last Vital Signs Date Time Temp Pulse Resp B/P (MAP) Pulse Ox O2 Delivery O2 Flow Rate FiO2 08/31/20 12:58 97.7 77 17 102/64 (77) (Anthony Whipple MD) Status: improved (Sam Mayer MD) Disposition: SHORT-TERM HOSP Condition: Serious Referrals: [facility],REFERR[facility] (PCP) Anthony Whipple MD Aug 31, 2020 13:24 Sam Mayer MD Aug 31, 2020 18:42
[2020-08-31] MEDS ORDERED: Morphine Sulfate 2mg/ml Inj(IV/IM USE ONLY) IVP ONE ×2 (13:45→21:15)
--- NOTE | 2020-08-31 13:45 | NUR ---
Received patient coming in from doctor's office. Patient reported that she did not feel well and had chest pain. Patient came in a wheelchair. Was unsteady on the legs walking to her bed but able to ambulate with assistance. Patient has an extensive medical history and is an excellent historian. V/S WNL. Afebrile. Has a wound to her right outer lower leg with pus drainage. Patient c/o pain to the area. Seen by MD. ABT ordered and administered and tolerated well. She has another wound to left lower leg which will be cleaned and re-dressed. Will continue to monitor.
[2020-08-31 14:13] LABS: BASOPHILS % (AUTO) 0.3 % (0.0-2.0); HEMATOCRIT 37.6 % (37.0-47.0); HEMOGLOBIN 12.3 G/DL (12.0-16.0); LYMPHOCYTES % (AUTO) 12.1 % (20.0-45.0); MEAN CORPUSCULAR VOLUME 86 FL (80-99); MONOCYTES % (AUTO) 3.8 % (1.0-10.0); NEUTROPHILS % (AUTO) 83.8 % (45.0-75.0); PLATELET COUNT 222 K/UL (150-450); RED BLOOD COUNT 4.37 M/UL (4.20-5.40); RED CELL DISTRIBUTION WIDTH 14.4 % (11.6-14.8); WHITE BLOOD COUNT 9.5 K/UL (4.8-10.8)
[2020-08-31 14:26] LABS: CALCIUM 6.5 MG/DL (8.5-10.1); POTASSIUM 3.8 MMOL/L (3.5-5.1)
[2020-08-31 14:31] LABS: ALBUMIN 2.7 G/DL (3.4-5.0); ALBUMIN/GLOBULIN RATIO 0.9 (1.0-2.7); BILIRUBIN,TOTAL 0.5 MG/DL (0.2-1.0)
[2020-08-31 14:40] VITALS: BP 122/83
--- NOTE | 2020-08-31 14:49 | Diagnostic Imaging Report ---
Indication: Chest pain Technique: One view of the chest Comparison: 04/26/2018 Findings: There is slight blunting of the bilateral costophrenic sulci, left greater than right. However, amount of pleural fluid is significantly decreased from the prior study. The heart size is normal. The lungs are clear. Impression: Evidence of trace bilateral pleural fluid. Otherwise no acute process
--- NOTE | 2020-08-31 16:45 | NUR ---
Patient is off the floor for scan
--- NOTE | 2020-08-31 17:00 | NUR ---
Patient returned to floor from scan
--- NOTE | 2020-08-31 17:11 | Diagnostic Imaging Report ---
Indication: Abdominal pain with vomiting Technique: Spiral acquisitions obtained through the abdomen and pelvis. No oral contrast utilized, per emergency room physician request No IV contrast utilized, per emergency room physician request. Multiplanar reconstructions were generated. Total dose length product 178 mGycm. CTDIvol(s) 3 mGy. Dose reduction achieved using automated exposure control Comparison: 12/22/2017 Findings: There is diffuse anasarca, with extensive edema of the subcutaneous fat, mesenteric, abdominal, and pelvic fat. There is also free intraperitoneal fluid and bilateral pleural effusions. This is a new finding since the previous study. Extensive edema limits inherent soft tissue contrast. Lack of enteric contrast limits assessment assessment of the GI tract. There is mild distention of the rectum by feces. There are colonic diverticula. Due to the surrounding edema, it isn't possible to assess for diverticulitis. The appendix is normal. There is diffuse distention of the small bowel, small bowel loops gas and fluid-filled. No definite nondilated distal small bowel is visualized, although evaluation of the bowel is very difficult. No free intraperitoneal gas is demonstrated. The distal esophagus demonstrates wall thickening. The stomach and duodenum are grossly unremarkable. Lack of IV contrast limits assessment of the solid organs. The liver demonstrates equivocal slight surface nodularity. Subcentimeter low-attenuation lesions are seen within the liver which are too small to characterize, but evident previously and grossly unchanged. The gallbladder, bile ducts are unremarkable. The pancreatic duct is prominent in caliber. This is also evident previously. The spleen, adrenals, kidneys are grossly unremarkable. Uterus and adnexal structures appear unremarkable. No pelvic mass or adenopathy. Again demonstrated is surgical hardware in the left hip. Again demonstrated is an old healed right inferior pubic ramus fracture. Included lung bases demonstrate stable scarring on the left. There are small to moderate bilateral pleural effusions, not evident previously Impression: Diffuse anasarca, with extensive edema of the subcutaneous, mesenteric, abdominal and pelvic fat. This limits inherent soft tissue contrast and therefore evaluation. Ascites Bilateral pleural effusions Limited assessment of the GI tract, due to lack of enteric contrast administration Diffusely dilated fluid-filled small bowel, without definite visualization of nondilated downstream small bowel loops. Likely on the basis of enteritis and/or ileus, although distal small bowel obstruction is also possible. Equivocal slight hepatic surface nodularity, if real could indicate early cirrhotic changes Mildly ectatic pancreatic duct, also previously demonstrated, significance uncertain but may be related to history of pancreatitis described by referring physician Other findings as noted, including left basilar pulmonary critical scarring, left hip surgical hardware, old healed right inferior pubic ramus fracture, probable hepatic cysts Findings discussed by phone with Dr. Mayer at the time of interpretation The CT scanner at [facility] is accredited by the [employer] and the scans are performed using protocols designed to limit radiation exposure to as low as reasonably achievable to attain images of sufficient resolution adequate for diagnostic evaluation.
[2020-08-31 18:12] LABS: INR 1.2 (0.9-1.1)
[2020-08-31 19:49] VITALS: BP 138/65
--- NOTE | 2020-08-31 19:49 | NUR ---
ED Nurse Note: rcv'd pt from primary RN, pt came in from office with abdominal pain. pt is resting comfortably on stretcher, vital signs WNL, pt states pain is 4/10. awaiting on transport team to arrive. asked pt if needing pain medication, pt refused at this time. will cont to monitor
--- NOTE | 2020-08-31 22:08 | NUR ---
ER DISCHARGE NOTE: Patient is cleared to be transferred per ERMD, pt is aox4, on room air, with stable vital signs with a HR of 50 which pt states is a new baseline for her. ambulance personnel given transfer instructions. pt took all belongings.
[2020-08-31 22:11] VITALS: BP 119/83
== END 2020-08-31 22:27 | disposition short-term general hospital (02) ==
LOC: EMR 13:20 → EDBEDREQ 18:55 → EMR 22:27
DX: K85.90 Acute pancreatitis without necrosis or infection, unspecified (principal); L97.919 Non-pressure chronic ulcer of unspecified part of right lower leg with unspecified severity; N28.9 Disorder of kidney and ureter, unspecified; R79.89 Other specified abnormal findings of blood chemistry; E78.00 Pure hypercholesterolemia, unspecified; I10 Essential (primary) hypertension; Z88.1 Allergy status to other antibiotic agents
CPT/HCPCS: 71045; 74176; 80053; 83690; 84484; 85025; 85610; 85730; 87070; 87205; 93005; 96361; 96365; 96375; 96376; J2270; J2405; J7030; Z7502; 99285; S0077